=== PATIENT | female | born 1995 | race Caucasian/White ===

== ENCOUNTER → 2017-12-01 11:52 | Outpatient (CLI) | payer BC, MEDICAID, SELFPAY ==
[2017-12-01 12:26] LABS: Hematocrit 38.1 % (37-47); Hemoglobin 13.1 g/dl (12.0-15.0); Mean Corp Hgb Conc 34.4 g/gl (32-36); Mean Corpuscular Hgb 28.9 pg (27.0-32.0); Mean Corpuscular Volume 83.9 fL (81-99); Mean Platelet Vol. 9.1 fl (6.2-12.0); Platelet Count 295 K/mm3 (150-450); RBC Distribution Width SD 38.9 fl (35.1-43.9); Red Blood Count 4.54 M/mm3 (4.2-5.4); White Blood Count 5.6 K/mm3 (4.4-11.0)
[2017-12-01 12:33] LABS: Scan Indicated on CBC? Y/N NO
[2017-12-01 13:39] LABS: Thyroid Stim Hormone (TSH) 2.35 uIU/mL (0.358-3.74)
== END ==
PROVIDERS: Visit Provider Obstetrics & Gynecology
DX: N92.5 Other specified irregular menstruation (principal)
CPT/HCPCS: 36415; 84443; 85027

== ENCOUNTER 2018-05-30 05:13 | Emergency (ER) | payer BC, MEDICAID, SELFPAY ==
[2018-05-30 05:14] VITALS: BP 146/73; PULSE 105; RESP 18; TEMP 36.8; O2SAT 99; BMI 31.5
[2018-05-30] MEDS: DiphenhydrAMINE 50 MG/ML Syringe 25 MG IV (05:23)
[2018-05-30] MEDS: Metoclopramide 10 MG/2 ML Vial IV (05:23)
[2018-05-30] MEDS: Ketorolac 30 MG/ML Syringe IV (05:23)
--- NOTE | 2018-05-30 05:28 | ED.VISSUMM ---
- ER Visit Summary Date of Service: 05/30/18 Chief Complaint: Migraine headache History of Present Illness: The patient is a 22 F with history of migraine headaches presents with a unilateral headache that started on Tuesday. Pain initially was right periorbital area which is radiated to the occiput and now encompasses the entire right side described as a sharp unrelenting pain. This is associated with phonophobia, photophobia and nausea. She denies any neck pain or stiffness. She denies paresthesia, anesthesia motor weeks. She denies problems with balance, speech or swallowing. She has absolutely no other complaints. Physical Examination: Blood pressure is slightly elevated 146/73 and heart rate is 105. She is afebrile. Head is atraumatic normocephalic. Pupils are equal round reactive. Extraocular muscles are intact. TMs are pearly white with landmarks noted. Nares patent with no drainage. Posterior pharynx without erythema or exudate. Uvula is midline. There is no dysphonia or dysphasia. Trachea is midline. There is no stridor with auscultation of the neck. Neck is supple. Heart is regular without murmur, gallop or rub. S1 and S2 are normal. Lungs are clear to auscultation with good movement of air bilaterally. Abdomen is soft nontender with normal bowel sounds. Patient is alert and oriented ?3. Motor is 5 over 5. Sensory is intact. DTRs are symmetric with no clonus or Babinski sign. Cranial 2 through 12 are intact. Cerebellar testing is normal. Test Results: None Emergency Department Course and Treatment: IV was established and she was treated with 25 mg of Benadryl and 30 mg of Toradol IV push followed by 10 mg of Reglan IV push. Treatment Plan: I was informed at 0610 the patient would like to go home. She was reassessed her headache is resolved. Disposition: Discharged home in stable improved condition Impression: Acute migraine headache without aura This note was generated with [employer] / Hang[employer] dictation software. It may contain incorrect words, spelling, and punctuation that were not noted in review of the chart prior to signing ED Disposition - Plan for ED Patient: Disposition: Home or Assisted Living Chief Complaint: Headache Instructions: ED Headache Migraine Referrals: Elise Banerjee NP-C [Primary Care Provider] - 3-5 Days
[2018-05-30 06:27] VITALS: RESP 14
== END 2018-05-30 06:27 | disposition home or self-care (01) ==
PROVIDERS: Emergency Provider Emergency Medicine; Family Provider Nurse Practitioner Family; PCP Nurse Practitioner Family
DX: G43.909 Migraine, unspecified, not intractable, without status migrainosus (principal); Z72.0 Tobacco use
CPT/HCPCS: 99283; A4216

== ENCOUNTER 2018-07-08 20:48 | Emergency (ER) | payer BC, MEDICAID, SELFPAY ==
[2018-07-08 20:49] VITALS: BP 139/75; PULSE 70; RESP 15; TEMP 37; BMI 29.8
[2018-07-08] MEDS: Ketorolac 30 MG/ML Syringe IV (21:44)
--- NOTE | 2018-07-08 22:28 | ED.DEP ---
ED Disposition - Plan for ED Patient: Chief Complaint: Headache Instructions: ED Headache Migraine Referrals: Elise Banerjee NP-C [Primary Care Provider] -
[2018-07-08 22:39] VITALS: BP 154/101; PULSE 64; RESP 16; O2SAT 98
--- NOTE | 2018-07-08 23:44 | ED.VISSUMM ---
- ER Visit Summary Date of Service: 07/08/18 Chief Complaint: Headache History of Present Illness: The patient is a 22 F presenting with headache. She states this started today. Pain was gradual in onset. Similar to her previous migraines. She tried naproxen at home with no relief. Pain is in the frontal region. She has no vision changes. She has nausea with no vomiting. Denies fever. She had no trauma. No other complaints. Physical Examination: Vitals are stable. Patient is afebrile. Alert no acute distress. HEENT exam is unremarkable. Neck is supple. No meningismus Lungs are clear and equal bilaterally. Heart is regular rate and rhythm. Extremities are unremarkable. Skin is warm and dry. No rash No focal neurologic deficit. Remainder of exam is unremarkable. Emergency Department Course and Treatment: Patient drove herself to the emergency department. She was given Toradol IV with improvement of her headache. She is requesting to go home. She is advised to follow-up with her primary care physician. Advised return to ED for worsening complaints. Disposition: Discharge home Impression: Headache, resolved This note was generated with [employer] dictation software. It may contain incorrect words, spelling, and punctuation that were not noted in review of the chart prior to signing ED Disposition - Plan for ED Patient: Disposition: Home or Assisted Living Chief Complaint: Headache Instructions: ED Headache Migraine Referrals: Elise Banerjee NP-C [Primary Care Provider] -
== END 2018-07-08 22:40 | disposition home or self-care (01) ==
PROVIDERS: Emergency Provider Emergency Medicine; Family Provider Nurse Practitioner Family; PCP Nurse Practitioner Family
DX: R51 Headache (principal); R11.0 Nausea
CPT/HCPCS: 96374; 99283; A4216

== ENCOUNTER → 2018-07-31 17:58 | Outpatient (CLI) | payer BC, MEDICAID, SELFPAY | PROVIDERS: Referring Provider Obstetrics & Gynecology; Visit Provider Obstetrics & Gynecology | DX: N39.0 Urinary tract infection, site not specified (principal) | CPT/HCPCS: 87086; 87088 ==

== ENCOUNTER 2018-08-13 00:48 | Emergency (ER) | payer BC, MEDICAID, SELFPAY ==
[2018-08-13 00:49] VITALS: BP 132/88; PULSE 87; RESP 18; TEMP 36.4; O2SAT 100; BMI 29.1
--- NOTE | 2018-08-13 01:09 | ED.VIS.GEN ---
History of Present Illness Chief Complaint: Headache Informant: Patient Onset: Hours - 12 Context: Gradual Onset Timing: Continuous Quality: throbbing Location: right frontal and retroorbital Current Severity: Severe Maximum Severity: Severe Worsened by: light, vomiting Relieved by: nothing Associated Symptoms: n/v Narrative: Similar in quality to prior migraines. She sometimes gets migraines triggered by significant weather changes, a low pressure system came through this past 24 hours. She has multiple triggers and is unsure exactly of this one, but has had no other recent illness or head injury recently. - Past Medical History (1) Migraines Status: Chronic Past Medical History - Allergies and Home Meds Allergies/Adverse Reactions: Allergies amoxicillin [Amoxicillin] Allergy (Verified 07/08/18 20:52) Rash Penicillins Allergy (Verified 07/08/18 20:52) Rash Primary Care Physician: Elise Banerjee NP-C [Primary Care Provider] - Smoking Status: Never smoker Drugs: None Review of Systems General: Denies: Chills, Fever Eyes: Reports: Blurred Vision - bilaterally. Denies: Diplopia ENT: Denies: Bilateral ear pain, Rhinorrhea, Sore throat Cardiovascular: Denies: Chest pain, Palpitations Respiratory: Denies: Dyspnea, Cough Gastrointestinal: Reports: Nausea, Vomiting. Denies: Abdominal pain Musculoskeletal: Denies: Neck pain, Back pain, Extremity Pain Skin: Denies: Rash, Wounds Neurological: Reports: Headache. Denies: Weakness, Parasthesia, Numbness Allergy: Denies: Swelling of the mouth, Swelling of the tongue Physical Exam Vital Signs/Narrative: Vital Signs Temp Pulse Resp BP Pulse Ox 08/13/18 00:49 97.6 F L 87 18 132/88 H 100 Inital Vital Signs reviewed: Yes General: Well nourished, Well developed, - - in dark room, nad Head: Normocephalic, Atraumatic Eyes: Perrl, EOMI, - - +photophobia ENT: Moist mucous membranes, No rhinorrhea. Negative for: Sinus tenderness Neck: Supple, Nontender, No lymphadenopathy Respiratory: No distress Skin: Normal color, No rash Neurological: Alert, Oriented x3, Cranial nerves II-XII grossly intact, Normal Strength, Normal Sensation, Normal Gait Psychological: Normal affect Diagnostic/Tx/Re-eval - Medical Decision Making Patient presenting with a fairly typical migraine for her, she was treated with migraine medications including Toradol and Reglan along with IV fluids, she feels much better on reevaluation and wants to go home. Advised to follow-up. ED Disposition - Plan for ED Patient: Disposition: Home or Assisted Living Chief Complaint: Headache Diagnosis: Migraine headache Instructions: ED Headache Migraine Referrals: Elise Banerjee, [employer] TECHNICIAN-C [Primary Care Provider] - 3-5 Days if not improving
[2018-08-13] MEDS: 0.9% Normal Saline 1,000 ML 999 ML IV (01:25)
[2018-08-13] MEDS: Ketorolac 30 MG/ML Syringe IV (01:25)
[2018-08-13] MEDS: Metoclopramide 10 MG/2 ML Vial IV (01:26)
[2018-08-13 02:03] VITALS: BP 112/74; PULSE 81; RESP 16; O2SAT 100
--- NOTE | 2018-08-13 02:04 | ED.RN ---
THIS NURSE REVIEWED D/C INSTRUCTIONS WITH PT. PT VERBALIZED UNDERSTANDING OF INSTRUCTIONS. IV D/C. IV CATHETER INTACT. PT TOLERATED WELL. PT AMBULATES FROM ROOM ON OWN WITHOUT ASSISTANCE FROM STAFF
== END 2018-08-13 02:04 | disposition home or self-care (01) ==
PROVIDERS: Emergency Provider Emergency Medicine; Family Provider Nurse Practitioner Family; PCP Nurse Practitioner Family
DX: G43.909 Migraine, unspecified, not intractable, without status migrainosus (principal)
CPT/HCPCS: 96361; 96374; 96375; 99284; J7030; A4216

== ENCOUNTER → 2018-09-07 07:39 | Outpatient (CLI) | payer BC, MEDICAID, SELFPAY ==
--- NOTE | 2018-09-07 07:42 | CT_ITS ---
STUDY: CT MAXILLOFACIAL SINUSES REASON FOR EXAM: Female, 23 years old. Chronic sinusitis. RADIATION DOSAGE (If Supplied By Facility): CTDIvol = ( 33.06 ) mGy, DLP = ( 751.21 ) mGycm TECHNIQUE: The patient was scanned in a multi detector CT scanner. High resolution axial imaging was performed without the administration of intravenous contrast material. Sagittal and coronal images were reconstructed. Individualized dose optimization techniques were used for this CT. COMPARISON: None. FINDINGS: FRONTAL SINUSES: Normal aeration, without mucosal inflammatory disease. ETHMOIDAL SINUSES: Normal aeration, without mucosal inflammatory disease. MAXILLARY SINUSES: Normal aeration, without mucosal inflammatory disease. SPHENOIDAL SINUSES: Normal aeration, without mucosal inflammatory disease. There is patency of the bilateral maxillary infundibuli with normal uncinate processes, ethmoid bullae, and hiatus semilunaris. Normal bilateral middle turbinates. There is hypertrophy of the left inferior nasal turbinate. Normal midline nasal septum. There is patency of the bilateral nasal airways. The visualized osseous structures are normal. The visualized bilateral orbital contents are normal. CT/Sinus/Facial Bone IMPRESSION: Hypertrophy of the inferior turbinate in the left nasal fossa. Electronically Signed: Melchor Cazares MD at 14:13 EST Tel [phone], Service support ,
== END ==
PROVIDERS: Referring Provider Otolaryngology; Visit Provider Otolaryngology
DX: J32.9 Chronic sinusitis, unspecified (principal)
CPT/HCPCS: 70486

== ENCOUNTER → 2018-10-06 11:52 | Outpatient (CLI) | payer BC, MEDICAID, SELFPAY ==
--- OUTSIDE RECORDS SUMMARY | 2018-11-22 05:46 | XMS RPT_ITS ---
:1995 Author Organization OHIP Support Name Relationship Address Phone TRISTON JAQUEZ Unavailable [address] + [place] [address] REJI, CLIFF Unavailable [address] + [place] [address] UE Unavailable Unavailable Unavailable BENDFELDT, TRISTON Unavailable [address] + [place] [address] REJI, CLIFF Unavailable [address] + [place] [address] UE Unavailable Unavailable Unavailable BENDFELDT, TRISTON Unavailable [address] + [place] [address] REJI, CLIFF Unavailable [address] + [place] [address] UE Unavailable Unavailable Unavailable BENDFELDT, TRISTON Unavailable [address] + [place] [address] REJI, CLIFF Unavailable [address] + [place] [address] UE Unavailable Unavailable Unavailable BENDFELDT, TRISTON Unavailable [address] + [place] [address] REJI, CLIFF Unavailable [address] + [place] [address] TACOBELL Unavailable [address] + [place] [address] BENDFELDT, TRISTON Unavailable [address] + [place] [address] REJI, CLIFF Unavailable [address] + [place] [address] TACOBELL Unavailable [address] + [place] [address] BENDFELDT, TRISTON Unavailable [address] + [place] [address] REJI, CLIFF Unavailable [address] + [place] [address] TACOBELL Unavailable [address] + [place] [address] BENDFELDT, TRISTON Unavailable [address] + [place] [address] REJI, CLIFF Unavailable [address] + [place] [address] UE Unavailable Unavailable Unavailable BENDFELDT, TRISTON Unavailable [address] + [place] [address] REJI, CLIFF Unavailable [address] + [place] [address] UE Unavailable Unavailable Unavailable Care Team Providers Name Role Phone Giselle Grewal Attending Unavailable Jose Franks Attending Unavailable Swihart INTERNATIONAL FLIGHT ATTENDANT, Elise Primary Care Unavailable Giselle Grewal Attending Unavailable Primay Care Physicia, No Primary Care Unavailable Vargas, Clarence Attending Unavailable Swihart INTERNATIONAL FLIGHT ATTENDANT, Elise Primary Care Unavailable Swihart RASHEEDA, Elise Primary Care Unavailable Emiliana Fletcher Attending Unavailable Swihart INTERNATIONAL FLIGHT ATTENDANT, Elise Primary Care Unavailable Howard Benitez Attending Unavailable Giselle Grewal Attending Unavailable Giselle Grewal Referring Unavailable [facility] Primary Care Unavailable Zachariaht RASHEEDA, Elise Primary Care Unavailable YANDY TATE Attending Unavailable Nazario Pritchard Attending Unavailable Nazario Pritchard Referring Unavailable [facility] Primary Care Unavailable Swihart RASHEEDA, Elise Consulting Unavailable PROBLEMS PROBLEMS DATE TYPE CONDITION / CODE ATTENDING STATUS SOURCE 10/06/2018 Unknown N39.0 - Urinary Jen Grewalily Active [facility] infection, Community site not specified Hospital / N39.0(ICD-10) Repository 03/16/2018 Unknown N92.5 - Other Godwinkos, Giselle Active [facility] specified [facility] irregular Hospital menstruation / Repository N92.5(ICD-10) PROCEDURES PROCEDURES No Procedure Records FoundRESULTS RESULTS DISCHARGE INSTRUCTION Observed: 10/24/2018 Status: F Source: [place] 1:35 PM [facility] REPOSITORY [facility] Medical Records Department [address] [place] [address] Discharge Instruction 10/24/18 1045 MR#: [id number] Acct: [id number] Name: SONIA JAQUEZ Rep #: [id number] : 1995 23 From: Howard Benitez MD PCP: Elise Goldberg Status: DEP ER ED Disposition - Plan for ED Patient: Chief Complaint: Headache Instructions: ED Headache Migraine Referrals: Elise Banerjee, SHOT BLASTER-C [Primary Care Provider] - What to do if you have Problems For any increased pain, shortness of breath, bleeding, nausea or vomiting, chest pain, or any unexpected problems, contact your Primary Care Provider. Call [facility] ([phone]) or report to the closest Emergency Room. Call 911 if necessary. 10/24/18 1335 <Electronically signed by Howard Benitez MD> Date Howard Benitez MD Cosigner Signature (If Indicated): Date CC: Elise VANESSA EMERGENCY DEPARTMENT Observed: 10/24/2018 Status: F Source: [place] SUMMARY 1:35 PM [facility] REPOSITORY [facility] Medical Records Department [address] [place] [address] Emergency Department Summary 10/24/18 1044 MR#: [id number] Acct: [id number] Name: SONIA JAQUEZ Rep #: [id number] : 1995 23 From: Howard Benitez MD PCP: Elise Goldberg Status: DEP ER - ER Visit Summary Date of Service: 10/24/18 Chief Complaint: Headache History of Present Illness: The patient is a 23 F with a history of migraines. She presents with a headache that started overnight last night. It woke her up. It has been persistent since last night. Pain feels like her typical migraines, but is more severe. Denies trauma. Denies fever. Denies blood thinner use. Denies weakness or numbness. She does have photophobia and phonophobia. Tried Maxalt, but had no improvement. Physical Examination: Afebrile and vital signs unremarkable. Head and neck are atraumatic. Heart regular. Lungs clear. Cranial nerve testing grossly intact. Normal strength and sensation. Normal cerebellar testing. Skin appears normal. Neck nontender with good range of motion. Test Results: None performed Emergency Department Course and Treatment: Patient has a known diagnosis of migraine. No new or red flag symptoms. She was treated with fluids, Compazine, Benadryl, and Toradol. At 12:30 PM, the patient is feeling better and requesting discharge. She will follow-up with her doctor. Treatment Plan: As above Disposition: Discharge Impression:. Acute cephalgia This note was generated with oNoise dictation software. It may contain incorrect words, spelling, and punctuation that were not noted in review of the chart prior to signing ED Disposition - Plan for ED Patient: Chief Complaint: Headache Instructions: ED Headache Migraine Referrals: Elise Banerjee, SHOT BLASTER-C [Primary Care Provider] - What to do if you have Problems For any increased pain, shortness of breath, bleeding, nausea or vomiting, chest pain, or any unexpected problems, contact your Primary Care Provider. Call [facility] ([phone]) or report to the closest Emergency Room. Call 911 if necessary. 10/24/18 1335 <Electronically signed by Howard Benitez MD> Date Howard Benitez MD Cosigner Signature (If Indicated): Date CC: Elise VANESSA EMERGENCY DEPARTMENT Observed: 10/16/2018 Status: F Source: [place] SUMMARY 5:32 AM [facility] REPOSITORY [facility] Medical Records Department [address] [place] [address] Emergency Department Summary 10/15/18 0155 MR#: [id number] Acct: [id number] Name: SONIA JAQUEZ Rep #: [id number] : 1995 23 From: Jose Franks MD PCP: Elise Goldberg Status: DEP ER - ER Visit Summary Date of Service: 10/15/18 Chief Complaint: Headache History of Present Illness: The patient is a 23 F who goes to the [facility]. She reports that she has a headache that began yesterday at 9 AM. Is gradually gotten worse. She reports she gets similar headaches all the time. She describes as a sharp, throbbing pain posterior to her left eye. Is 10 at 10 worsening a 10 currently. Is worsened by light and sound. Is relieved by Maxalt and sleep. She has had nausea without vomiting. No change in her vision. No recent trauma to her head. No fever or chills. No numbness or weakness. Physical Examination: Vitals: Stable. Afebrile. General: Well-nourished and well-developed. Head: Normocephalic atraumatic. Neck: Supple, no lymphadenopathy. No JVD. Nontender. Cardiovascular: Regular rate and rhythm. No murmurs. Respiratory: No respiratory distress. Clear to auscultation bilaterally. Abdominal: Soft, nontender, nondistended, normal bowel sounds. No guarding, rebound, or peritoneal signs. Back: Nontender. Extremities: Nontender, no edema. Skin: Normal color, no rash. Neurologic: Alert and oriented 3. Cranial nerves II through XII are intact. Normal strength and sensation. Psych: Normal affect. Emergency Department Course and Treatment: Patient had an IV placed. She was treated with Benadryl, Compazine, Toradol, and dexamethasone IV. She reports that her headache is completely resolved. Treatment Plan: Patient be discharged instructions to follow- up with her primary care physician in 1-2 days if not improving. Return to the emergency department for any worsening symptoms. Disposition: To home in improved and stable condition. Impression: 1. Migraine headache. This note was generated with ViajaNetation software. It may contain incorrect words, spelling, and punctuation that were not noted in review of the chart prior to signing ED Disposition - Plan for ED Patient: Disposition: Home or Assisted Living Chief Complaint: Headache Instructions: ED Headache Migraine Referrals: Elise Banerjee, SHOT BLASTER-C [Primary Care Provider] - 1-2 Days if not improving What to do if you have Problems For any increased pain, shortness of breath, bleeding, nausea or vomiting, chest pain, or any unexpected problems, contact your Primary Care Provider. Call [facility] ([phone]) or report to the closest Emergency Room. Call 911 if necessary. 10/16/18 0532 <Electronically signed by Jose Franks MD> Date Jose Franks MD Cosigner Signature (If Indicated): Date CC: Elise VANESSA Observed: 10/06/2018 Status: F Source: [place] CULTURE, URINE 9:45 AM [facility] REPOSITORY Urine Culture ORGANISM 1: Presumptive E. coli [place] Count 50,000-80,000 Presumptive E. coli: REACTION Amoxacillin/Clavulanic Acid $ <=2 S Ampicillin $ 4 S Ampicillin/Sulbactam $ <=2 S Cefazolin $ <=4 S Cefepime $ <=1 S Ceftriaxone $ <=1 S Ciprofloxacin $ <=0.25 S ESBL - Ertapenim $$$ <=0.5 S Gentamicin $ <=1 S Imipenem *NF <=0.25 S Levofloxacin $ <=0.12 S Nitrofurantoin $ <=16 S Piperacillin/Tazobactam $$ <=4 S Tobramycin $ <=1 S Trimethoprim/Sulfametho $ <=20 S (NF) indicates non-formulary drug at [facility]. Approval by Infectious Disease Specialist required before non-formulary drugs may be ordered and/or dispensed. Performed By: #### M100.0650 #### [facility] [address] [place], [address] SINUS/FACIAL BONE Observed: 09/07/2018 Status: F Source: [place] 7:42 AM [facility] REPOSITORY [facility] Imaging Services [address] [place] [address] Sinus/Facial Bone MR#: [id number] Acct: [id number] Name: SONIA JAQUEZ Rep #: [id number] : 1995 F 23 From: Melchor Cazares MD PCP: WILL KNOX [facility] Status: REG CLI Study: Sinus/Facial Bone Date of Exam: 09/07/18 Exam# [id number] Ordering Dr: Nazario Pritchard MD STUDY: CT MAXILLOFACIAL SINUSES REASON FOR EXAM: Female, 23 years old. Chronic sinusitis. RADIATION DOSAGE (If Supplied By Facility): CTDIvol = ( 33.06 ) mGy, DLP = ( 751.21 ) mGycm TECHNIQUE: The patient was scanned in a multi detector CT scanner. High resolution axial imaging was performed without the administration of intravenous contrast material. Sagittal and coronal images were reconstructed. Individualized dose optimization techniques were used for this CT. COMPARISON: None. FINDINGS: FRONTAL SINUSES: Normal aeration, without mucosal inflammatory disease. ETHMOIDAL SINUSES: Normal aeration, without mucosal inflammatory disease. MAXILLARY SINUSES: Normal aeration, without mucosal inflammatory disease. SPHENOIDAL SINUSES: Normal aeration, without mucosal inflammatory disease. There is patency of the bilateral maxillary infundibuli with normal uncinate processes, ethmoid bullae, and hiatus semilunaris. Normal bilateral middle turbinates. There is hypertrophy of the left inferior nasal turbinate. Normal midline nasal septum. There is patency of the bilateral nasal airways. The visualized osseous structures are normal. The visualized bilateral orbital contents are normal. CT/Sinus/Facial Bone IMPRESSION: Hypertrophy of the inferior turbinate in the left nasal fossa. Electronically Signed: Melchor Cazares MD at 14:13 EST Tel [phone], Service support , CC: Tima Pritchard MD; WILL KNOX [facility] Field Collector: Signed EMERGENCY DEPARTMENT Observed: 08/13/2018 Status: F Source: [place] SUMMARY 1:58 AM [facility] REPOSITORY [facility] Medical Records Department [address] [place] [address] Emergency Department Summary 08/13/18 0109 MR#: [id number] Acct: [id number] Name: SONIA JAQUEZ Rep #: [id number] : 1995 22 From: Yandy Tate MD PCP: Elise Goldberg Status: REG ER History of Present Illness Chief Complaint: Headache Informant: Patient Onset: Hours - 12 Context: Gradual Onset Timing: Continuous Quality: throbbing Location: right frontal and retroorbital Current Severity: Severe Maximum Severity: Severe Worsened by: light, vomiting Relieved by: nothing Associated Symptoms: n/v Narrative: Similar in quality to prior migraines. She sometimes gets migraines triggered by significant weather changes, a low pressure system came through this past 24 hours. She has multiple triggers and is unsure exactly of this one, but has had no other recent illness or head injury recently. - Past Medical History (1) Migraines Status: Chronic Past Medical History - Allergies and Home Meds Allergies/Adverse Reactions: Allergies amoxicillin [Amoxicillin] Allergy (Verified 07/08/18 20:52) Rash Penicillins Allergy (Verified 07/08/18 20:52) Rash Primary Care Physician: Elise Banerjee, MARIO-C [Primary Care Provider] - Smoking Status: Never smoker Drugs: None Review of Systems General: Denies: Chills, Fever Eyes: Reports: Blurred Vision - bilaterally. Denies: Diplopia ENT: Denies: Bilateral ear pain, Rhinorrhea, Sore throat Cardiovascular: Denies: Chest pain, Palpitations Respiratory: Denies: Dyspnea, Cough Gastrointestinal: Reports: Nausea, Vomiting. Denies: Abdominal pain Musculoskeletal: Denies: Neck pain, Back pain, Extremity Pain Skin: Denies: Rash, Wounds Neurological: Reports: Headache. Denies: Weakness, Parasthesia, Numbness Allergy: Denies: Swelling of the mouth, Swelling of the tongue Physical Exam Vital Signs/Narrative: Vital Signs 08/13/18 00:49 97.6 F L 87 18 132/88 H 100 Inital Vital Signs reviewed: Yes General: Well nourished, Well developed, - - in dark room, nad Head: Normocephalic, Atraumatic Eyes: Perrl, EOMI, - - +photophobia ENT: Moist mucous membranes, No rhinorrhea. Negative for: Sinus tenderness Neck: Supple, Nontender, No lymphadenopathy Respiratory: No distress Skin: Normal color, No rash Neurological: Alert, Oriented x3, Cranial nerves II-XII grossly intact, Normal Strength, Normal Sensation, Normal Gait Psychological: Normal affect Diagnostic/Tx/Re-eval - Medical Decision Making Patient presenting with a fairly typical migraine for her, she was treated with migraine medications including Toradol and Reglan along with IV fluids, she feels much better on reevaluation and wants to go home. Advised to follow-up. ED Disposition - Plan for ED Patient: Disposition: Home or Assisted Living Chief Complaint: Headache Diagnosis: Migraine headache Instructions: ED Headache Migraine Referrals: Elise Banerjee, SHOT BLASTER-C [Primary Care Provider] - 3-5 Days if not improving What to do if you have Problems For any increased pain, shortness of breath, bleeding, nausea or vomiting, chest pain, or any unexpected problems, contact your Primary Care Provider. Call [facility] ([phone]) or report to the closest Emergency Room. Call 911 if necessary. 08/13/18 0158 <Electronically signed by Yandy Tate MD> Date Yandy Tate MD Cosigner Signature (If Indicated): Date CC: Elise VANESSA Observed: 07/31/2018 Status: F Source: [place] CULTURE, URINE 5:00 PM [facility] REPOSITORY Urine Culture ORGANISM 1: Mixed Gram Positive Organisms [place] Count 11,000-25,000 MIX CULTURE Mixed contaminants. Submit a new specimen if indicated. Performed By: #### M100.0650 #### [facility] [address] [place], [address] EMERGENCY DEPARTMENT Observed: 07/08/2018 Status: F Source: [place] SUMMARY 11:47 PM [facility] REPOSITORY [facility] Medical Records Department [address] [place] [address] Emergency Department Summary 07/08/18 2344 MR#: [id number] Acct: [id number] Name: SONIA JAQUEZ Rep #: [id number] : 1995 22 From: Emiliana Fletcher MD PCP: Elise Goldberg Status: DEP ER - ER Visit Summary Date of Service: 07/08/18 Chief Complaint: Headache History of Present Illness: The patient is a 22 F presenting with headache. She states this started today. Pain was gradual in onset. Similar to her previous migraines. She tried naproxen at home with no relief. Pain is in the frontal region. She has no vision changes. She has nausea with no vomiting. Denies fever. She had no trauma. No other complaints. Physical Examination: Vitals are stable. Patient is afebrile. Alert no acute distress. HEENT exam is unremarkable. Neck is supple. No meningismus Lungs are clear and equal bilaterally. Heart is regular rate and rhythm. Extremities are unremarkable. Skin is warm and dry. No rash No focal neurologic deficit. Remainder of exam is unremarkable. Emergency Department Course and Treatment: Patient drove herself to the emergency department. She was given Toradol IV with improvement of her headache. She is requesting to go home. She is advised to follow-up with her primary care physician. Advised return to ED for worsening complaints. Disposition: Discharge home Impression: Headache, resolved This note was generated with oNoise dictation software. It may contain incorrect words, spelling, and punctuation that were not noted in review of the chart prior to signing ED Disposition - Plan for ED Patient: Disposition: Home or Assisted Living Chief Complaint: Headache Instructions: ED Headache Migraine Referrals: Elise Banerjee, MARIO-C [Primary Care Provider] - What to do if you have Problems For any increased pain, shortness of breath, bleeding, nausea or vomiting, chest pain, or any unexpected problems, contact your Primary Care Provider. Call [facility] ([phone]) or report to the closest Emergency Room. Call 911 if necessary. 07/08/182346 <Electronically signed by Emiliana Fletcher MD> Date Emiliana Fletcher MD Cosigner Signature (If Indicated): Date CC: Elise VANESSA DISCHARGE INSTRUCTION Observed: 07/08/2018 Status: F Source: [place] 10:28 PM [facility] REPOSITORY [facility] Medical Records Department [address] [place] [address] Discharge Instruction 07/08/182227 MR#: [id number] Acct: [id number] Name: SONIA JAQUEZ Rep #: [id number] : 1995 22 From: Emiliana Fletcher MD PCP: Elise Goldberg Status: REG ER ED Disposition - Plan for ED Patient: Chief Complaint: Headache Instructions: ED Headache Migraine Referrals: Elise Banerjee NP-C [Primary Care Provider] - What to do if you have Problems For any increased pain, shortness of breath, bleeding, nausea or vomiting, chest pain, or any unexpected problems, contact your Primary Care Provider. Call [facility] ([phone]) or report to the closest Emergency Room. Call 911 if necessary. 07/08/182227 <Electronically signed by Emiliana Fletcher MD> Date Emiliana Fletcher MD Cosigner Signature (If Indicated): Date CC: Elise VANESSA EMERGENCY DEPARTMENT Observed: 05/30/2018 Status: F Source: [place] SUMMARY 6:16 AM [facility] REPOSITORY [facility] Medical Records Department [address] [place] [address] Emergency Department Summary 05/30/18 0528 MR#: [id number] Acct: [id number] Name: SONIA JAQUEZ Rep #: [id number] : 1995 22 From: Clarence Vargas MD PCP: Elise Goldberg Status: REG ER - ER Visit Summary Date of Service: 05/30/18 Chief Complaint: Migraine headache History of Present Illness: The patient is a 22 F with history of migraine headaches presents with a unilateral headache that started on Tuesday. Pain initially was right periorbital area which is radiated to the occiput and now encompasses the entire right side described as a sharp unrelenting pain. This is associated with phonophobia, photophobia and nausea. She denies any neck pain or stiffness. She denies paresthesia, anesthesia motor weeks. She denies problems with balance, speech or swallowing. She has absolutely no other complaints. Physical Examination: Blood pressure is slightly elevated 146/73 and heart rate is 105. She is afebrile. Head is atraumatic normocephalic. Pupils are equal round reactive. Extraocular muscles are intact. TMs are pearly white with landmarks noted. Nares patent with no drainage. Posterior pharynx without erythema or exudate. Uvula is midline. There is no dysphonia or dysphasia. Trachea is midline. There is no stridor with auscultation of the neck. Neck is supple. Heart is regular without murmur, gallop or rub. S1 and S2 are normal. Lungs are clear to auscultation with good movement of air bilaterally. Abdomen is soft nontender with normal bowel sounds. Patient is alert and oriented 3. Motor is 5 over 5. Sensory is intact. DTRs are symmetric with no clonus or Babinski sign. Cranial 2 through 12 are intact. Cerebellar testing is normal. Test Results: None Emergency Department Course and Treatment: IV was established and she was treated with 25 mg of Benadryl and 30 mg of Toradol IV push followed by 10 mg of Reglan IV push. Treatment Plan: I was informed at 0610 the patient would like to go home. She was reassessed her headache is resolved. Disposition: Discharged home in stable improved condition Impression: Acute migraine headache without aura This note was generated with oNoise dictation software. It may contain incorrect words, spelling, and punctuation that were not noted in review of the chart prior to signing ED Disposition - Plan for ED Patient: Disposition: Home or Assisted Living Chief Complaint: Headache Instructions: ED Headache Migraine Referrals: Elise Banerjee, SHOT BLASTER-C [Primary Care Provider] - 3-5 Days What to do if you have Problems For any increased pain, shortness of breath, bleeding, nausea or vomiting, chest pain, or any unexpected problems, contact your Primary Care Provider. Call [facility] ([phone]) or report to the closest Emergency Room. Call 911 if necessary. 05/30/18 0616 <Electronically signed by Clarence Vargas MD> Date Clarence Vargas MD Cosigner Signature (If Indicated): Date CC: Elise VANESSA PROGRESS Observed: 02/12/2018 Status: COMPLETED Source: [place] 9:20 AM [facility] REPOSITORY [facility] ID: [id number] Author: Claudia (Billboard Erector Helper) Older Service: (none) Author Type: Nurse Practitioner Type: Progress Notes Filed: 02/12/2018 9:39 AM Note Text: CC: Patient presents with: Musculoskeletal Problem: Left foot pain since yesterday HPI Sonia Jaquez is a 22 year old female who presents today for left foot pain since last night. [place] the mall with flip flops on for a few hours yesterday, pain started later that evening. Located between 3rd and 4th toe and radiates up side of foot and outer ankle. Described as sharp pain. Aggravated by weight bearing, walking and pointing toes. Otherwise feels sore at rest. No injury. No strenuous activities or exercise. No swelling, numbness or tingling. Treated with Tylenol at 12 am with no relief. Has not taken anything else since then. Patient states last summer had similar issue with pain in the right foot in the exact same spot. Lasted for about one week, then resolved on its own. REVIEW OF SYSTEMS See HPI No past medical history on file. No past surgical history on file. ALLERGIES Penicillin MEDICATIONS oxyCODONE-acetaminophen (PERCOCET) 5-325 mg tablet Take 1 tablet by mouth every 8 hours as needed for Pain. ibuprofen (MOTRIN) 800 mg tablet Take 1 tablet by mouth every 8 hours as needed for Pain. Take with food. No family history on file. Social History Substance Use Topics - Smoking status: Former Smoker Types: Cigarettes Quit date: 04/23/2015 - Smokeless tobacco: Never Used - Alcohol use Not on file PHYSICAL EXAM BP 110/72 Pulse 78 Temp 36.7 ?C (98.1 ?F) (Right Tympanic) Resp 16 Wt 84.4 kg (186 lb) General Appearance: well appearing, in no acute distress, alert Left foot/ankle: Top foot, between 3rd/4th toes at the base: Very tender with palpation. Slight tenderness over entire foot and lateral malleolus excluding toes. Pain with ROM of foot and ankle. No deformities, edema, skin discoloration. Good capillary refill. Pulses: 2+ TETANUS due on 2004 HPV VACCINE(1 of 3 - Female 3 Dose Series) due on 2004 PAP EVERY 3 YEARS (21-30 YEAR OLDS) due on 2014 INFLUENZA(Season Ended) due on 06/24/2018 ASSESSMENT/PLAN: 1. Foot pain, left - ICD9: 729.5, ICD10: M79.672 Likely overuse, wearing flip flops No concern for fracture, imaging not indicated Advised to start Aleve for the next 3-4 days, see patient instructions Follow-up in 1-2 weeks if no improvement or sooner if worsening Prescription instructions reviewed with patient as applicable. Potential red flag symptoms discussed with the patient. Reviewed appropriate action plan to take if red flag symptoms occur. Patient agreeable to treatment plan. Claudia Mccarty APRN.MS ACCESS DATABASE DEVELOPER CNOV Observed: 02/12/2018 Status: COMPLETED Source: [place] 9:00 AM [facility] REPOSITORY Office Visit (WSTR) SONIA JAQUEZ ([id number]) 1995 F Date Time Provider Department 02/12/18 9:00 AM CLAUDIA MCCARTY ([place]) [facility] During your visit today, we recorded the following information about you: Temperature Pulse Respiration Blood pressure 98.1 degrees 78/minute 16/minute 110/72 Weight 84.4 kg Claudia ASHLEY MccartyCARLOS ALBERTO 02/12/2018 9:39 AM Signed CC: Patient presents with: Musculoskeletal Problem: Left foot pain since yesterday HPI Sonialarissa Jaquez is a 22 year old female who presents today for left foot pain since last night. [place] around at the mall with flip flops on for a few hours yesterday, pain started later that evening. Located between 3rd and 4th toe and radiates up side of foot and outer ankle. Described as sharp pain. Aggravated by weight bearing, walking and pointing toes. Otherwise feels ANDquot;soreANDquot; at rest. No injury. No strenuous activities or exercise. No swelling, numbness or tingling. Treated with Tylenol at 12 am with no relief. Has not taken anything else since then. Patient states last summer had similar issue with pain in the right foot in the exact same spot. Lasted for about one week, then resolved on its own. REVIEW OF SYSTEMS See [facility] No past medical history on file. No past surgical history on file. ALLERGIES Penicillin MEDICATIONS oxyCODONE-acetaminophen (PERCOCET) 5-325 mg tablet Take 1 tablet by mouth every 8 hours as needed for Pain. ibuprofen (MOTRIN) 800 mg tablet Take 1 tablet by mouth every 8 hours as needed for Pain. Take with food. No family history on file. Social History Substance Use Topics - Smoking status: Former Smoker Types: Cigarettes Quit date: 04/23/2015 - Smokeless tobacco: Never Used - Alcohol use Not on file PHYSICAL EXAM BP 110/72 Pulse 78 Temp 36.7 ?C (98.1 ?F) (Right Tympanic) Resp 16 Wt 84.4 kg (186 lb) General Appearance: well appearing, in no acute distress, alert Left foot/ankle: Top foot, between 3rd/4th toes at the base: Very tender with palpation. Slight tenderness over entire foot and lateral malleolus excluding toes. Pain with ROM of foot and ankle. No deformities, edema, skin discoloration. Good capillary refill. Pulses: 2+ TETANUS due on 2004 HPV VACCINE(1 of 3 - Female 3 Dose Series) due on 2004 PAP EVERY 3 YEARS (21-30 YEAR OLDS) due on 2014 INFLUENZA(Season Ended) due on 06/24/2018 ASSESSMENT/PLAN: 1. Foot pain, left - ICD9: 729.5, ICD10: M79.672 Likely overuse, wearing flip flops No concern for fracture, imaging not indicated Advised to start Aleve for the next 3-4 days, see patient instructions Follow-up in 1-2 weeks if no improvement or sooner if worsening Prescription instructions reviewed with patient as applicable. Potential red flag symptoms discussed with the patient. Reviewed appropriate action plan to take if red flag symptoms occur. Patient agreeable to treatment plan. JOSEPH Holly APRN.CNP 02/12/2018 9:27 AM Signed Take 2 Aleve twice a day with meals for the next 3-4 days. Can also try heat. Follow-up with your doctor in 1-2 weeks if no improvement or sooner if worsening Referring Provider: SELF [200] Allergies As of Date: 02/12/2018 Noted Allergy Reaction PENICILLIN 02/17/2016 4 - Hives Date Reviewed: 02/12/2018 Reviewed by: Danya Tinajero LPN - Fully Assessed Reason for Visit: Musculoskeletal Problem [69] Cmt: Left foot pain since yesterday Primary Visit Diagnosis:Foot pain, left [M79.672] Prescriptions as of 02/12/2018 Sig: OXYCODONE-ACETAMINOPHEN 5 MG-* Take 1 tablet by mouth every * IBUPROFEN 800 MG TABLET Take 1 tablet by mouth every * Medication notes this encounter OXYCODONE-ACETAMINOPHEN 5 MG-325 MG TABLET >> Danya Tinajero DIRECTOR OF AUDIOLOGY 02/12/2018 9:10 AM >> BERENICE, DANYA E DIRECTOR OF AUDIOLOGY Sun Feb 12, 2018 9:10 AM [place] done IBUPROFEN 800 MG TABLET >> Danya E Berenice DIRECTOR OF AUDIOLOGY 02/12/2018 9:10 AM >> BERENICE, DANYA E DIRECTOR OF AUDIOLOGY Sun Feb 12, 2018 9:10 AM [place] done Problem List As Of Date: 02/12/2018 (None) Other instructions from your clinician: Take 2 Aleve twice a day with meals for the next 3-4 days. Can also try heat. Follow-up with your doctor in 1-2 weeks if no improvement or sooner if worsening Encounter Status:Closed by CLAUDIA MCCARTY CNP on 02/12/18 CBC-COMPLETE BLOOD CNT Collected: 12/01/2017 Status: F Source: [place] NO DIFF 11:56 AM [facility] REPOSITORY TYPE CODE TESTS RESULT OUT OF RANGE REFERENCE UNITS LAB L100.1000 4.4-11.0 K/mm3 Normal WBC 5.6 LAB L100.1200 4.2-5.4 M/mm3 Normal RBC 4.54 LAB L100.1300 12.0-15.0 g/dl Normal HGB 13.1 LAB L100.1400 37-47 % Normal HCT 38.1 LAB L100.1500 81-99 fL Normal MCV 83.9 LAB L100.1600 27.0-32.0 pg Normal MCH 28.9 LAB L100.1700 32-36 g/gl Normal MCHC 34.4 LAB L100.1810 11.6-14.6 % Normal RDW CV 13.0 LAB L100.1820 35.1-43.9 fl Normal RDW SD 38.9 LAB L100.1900 150-450 K/mm3 Normal PLT 295 LAB L100.2000 6.2-12.0 fl Normal MPV 9.1 Performed By: #### L100.0500 #### [facility] [place], [address] THYROID STIM HORMONE Collected: 12/01/2017 Status: F Source: [place] (TSH) 11:56 AM [facility] REPOSITORY TYPE CODE TESTS RESULT OUT OF RANGE REFERENCE UNITS LAB L501.9520 0.358-3.74 uIU/mL Normal TSH 2.35 Performed By: #### L501.9520 #### [facility] [place], [address] ALLERGIES ALLERGIES DATE TYPE / CODE NAME / CODE REACTION SEVERITY SOURCE 10/15/2018 Drug Penicillins/J76005 Rash Unknown [place] Allergy/416 0476(RXNORM) Community 020220([facility] ED CT) Repository 10/15/2018 Drug amoxicillin/C00729 Rash Unknown [place] Allergy/416 3675(RXNORM) Community 294320([facility] ED CT) Repository 02/17/2016 DRUG PENICILLIN HIVES [facility] INGREDI/[address] [place] 800298(SNOM Repository ED CT) 10/10/2015 DRUG AMOXICILLIN RASH [facility] INGREDI/[address] [place] 685925(SNOM Repository ED CT) 10/10/2015 Drug PENICILLINS RASH [facility] Class/01054 [address] [place] 1003(SNOMED Repository CT) ENCOUNTERS ENCOUNTERS ADMIT/DISCHARGE ACCOUNT ADMITTING ENCOUNTER LOCATION SOURCE NUMBER CLASS 10/24/2018/10/24/19 [id number] Emergency [address] ing:ED Repository 10/15/2018/10/15/20 [id number] Emergency [address] ing:ED Repository 10/06/2018 [id number] [facility] ing:LABSPEC Repository 09/07/2018 [id number] Ambulatory [facility] ing:CT Repository 08/13/2018/08/13/20 [id number] Emergency [address] ing:ED Repository 07/31/2018 [id number] Ambulatory [facility] ing:LABSPEC Repository 07/08/2018/07/08/20 [id number] Emergency [address] ing:ED Repository 05/30/2018/05/30/20 [id number] Emergency [address] ing:ED Repository 02/12/2018/02/14/20 [id number] Ambulatory [address] [place] Repository 12/01/2017 [id number] Ambulatory [place] [facility] ing:WOBLAB Repository PAYERS PAYERS ENCOUNTER GUARANTOR PAYER SUBSCRIBER SOURCE 10/24/2018 SONIA B Primary SILVIO Wang [id number] Insurance:ANTHEMPolic LEHMANDOB: [facility] LUC[facility]A [facility], y Number: [id number] [address]Egy: [id number] Repository Date:3678-96-23LJ [address] () [address], [place] [address]QS: 10/24/2018 Secondary SONIA B [place] Insurance:[facility]LY [facility]: [facility] [id number] General HospitalPolicy Number: Repository [id number] Date:8223-67-19LB [address] [place] [address] [place] [address]QO: 10/24/2018 Tertiary NOT GIVENUNK [place] Insurance:SELF PAY [facility] Number: Effective Repository Date:2018-10-24 10/15/2018 SONIA B Primary SILVIO Wang [id number] Insurance:ANTHEMPolic LEHMANDOB: [facility] LUCÍA [facility], y Number: [id number] Santa Fe Medical Center [address]Taf: [id number] Repository Date:8196-13-17ZE [address] () [address]ZI, [place] [address]JG: 10/15/2018 Secondary SONIA B [place] Insurance:ROEL OLIVIERB: [facility] [id number] General HospitalPolicy Number: Repository [id number] Date:9337-27-63NS [address] [place] [address] [place] [address]IZ: 10/15/2018 Tertiary NOT GIVENUNK [place] Insurance:SELF PAY [facility] Number: Effective Repository Date:2018-10-15 10/06/2018 SONIA B Primary SILVIO Wang [id number] Insurance:ANTHEMPolic LEHMANDOB: [facility] LUCÍA [facility], y Number: [id number] Hospital [place] [address]Tde: [id number] Repository Date:4385-40-33SR [address] () [address]MGXQMPP, [place] [address]KN: 10/06/2018 Secondary SONIA B [place] Insurance:ROEL OLIVIERB: [facility] [id number] Hospital PLANPolicy Number: Repository [id number] Date:1504-92-45ES [address] [place] [address]KQ: 10/06/2018 Tertiary NOT GIVENUNK [place] Insurance:SELF PAY [facility] Number: Effective Repository Date:2018-10-06 09/07/2018 SONIA B Primary SILVIO S [place] [id number] Insurance:ANTHEMPolic LEHMANDOB: [facility], y Number: [id number] Santa Fe Medical Center [address]Urj: [id number] Repository Date:4969-82-58FR [address] () 890097IRWRQOQ, [place] [address]JD: 09/07/2018 Secondary SONIA B [place] Insurance:ROEL OLIVIERB: [facility] [id number] Children's Psychiatric Centeric Number: Repository [id number] Date:8366-20-72KI [address] [place] [address]NF: 09/07/2018 Tertiary NOT GIVENUNK [place] Insurance:SELF PAY [facility] Number: Effective Repository Date:2018-09-01 08/13/2018 Sonia B Primary SILVIO S [place]ipe [id number] Insurance:ANTHEMPolic LEHMANDOB: [facility] LUCÍA [facility], y Number: [id number] [place] [address]Mib: [id number] Repository Date:5454-81-58HD [address] () [address]UYYAXMY, [place] [address]UK: 08/13/2018 Secondary SONIA B [place] Insurance:ROEL OLIVIERB: [facility] [id number] Hospital PLANPolicy Number: Repository [id number] Date:5809-54-09RZ [facility]OX [facility] [address]RH: 08/13/2018 Tertiary NOT GIVENUNK [place] Insurance:SELF PAY [facility] Number: Effective Repository Date:2018-08-13 07/31/2018 SONIA B Primary SILVIO Wang [id number] Insurance:ANTHEMPolic LEHMANDOB: [facility], y Number: [id number] Santa Fe Medical Center [address]Zlf: [id number] Repository Date:8047-51-98XB [address] () 000554KRDQSKX, [place] [address]RD: 07/31/2018 Secondary SONIA B [place] Insurance:ROEL OLIVIERB: [facility] [id number] General HospitalPolicy Number: Repository [id number] Date:0749-08-23LS [address] [address]OP: 07/31/2018 Tertiary NOT GIVENUNK [place] Insurance:SELF PAY [facility] Number: Effective Repository Date:2018-07-31 07/08/2018 Sonia B Primary SILVIO Wang [id number] Insurance:ANTHEMPolic LEHMANDOB: [facility], y Number: [id number] Santa Fe Medical Center [address]Jca: [id number] Repository Date:7544-02-57RF [address] () [address]556[address]HGSRKYI, [place] [address]YF: 07/08/2018 Secondary SONIA B [place] Insurance:ROEL OLIVIERB: [facility] [id number] General HospitalPolic Number: Repository [id number] Date:3475-62-81AK [address] [address]AV: 07/08/2018 Tertiary NOT GIVENUNK [place] Insurance:SELF PAY [facility] Number: Effective Repository Date:2018-07-08 05/30/2018 Sonia B Primary SILVIO Wang [id number] Insurance:ANTHEMPolic LEHMANDOB: [facility] LUCÍA [facility]ATH[facility]AC[facility], y Number: [id number] Santa Fe Medical Center [address]Ozq: [id number] Repository Date:0567-20-06WO [address] () 963571HYKBCAV, [place] [address]BL: 05/30/2018 Secondary SONIA B [place] Insurance:ROEL OLIVIERB: [facility] [id number] Hospital PLANPolicy Number: Repository [id number] Date:4331-41-60OE [address] [place], [place] [address]DONNELL [place] [address]TM: 05/30/2018 Tertiary NOT GIVENUNK Felipe Insurance:SELF PAY [facility] Number: Effective Repository Date:2018-05-30 12/01/2017 Sonia B Primary SILVIO Wang [id number] Insurance:ANTHEMPolic LEHMANDOB: [facility] LUCÍA [facility], y Number: [id number] Hospital [place] [address]Pbo: [id number] Repository Date:8484-81-74WL [address] () [address]LIOUKLH [place] [address]BH: 12/01/2017 Secondary SONIA B [place]ipe Insurance:ANNIAE SOYB: [facility] [id number] Hospital PLANPolicy Number: Repository [id number] Date:2787-18-32NK [address] [place], [place] [address]G[place] [address]MR: 12/01/2017 Tertiary NOT GIVENUNK Felipe Insurance:SELF PAY [facility] Number: Effective Repository Date:2017-12-01
== END ==
PROVIDERS: Visit Provider Obstetrics & Gynecology
DX: N39.0 Urinary tract infection, site not specified (principal)
CPT/HCPCS: 87086; 87088; 87186

== ENCOUNTER 2018-10-15 00:38 | Emergency (ER) | payer BC, MEDICAID, SELFPAY ==
[2018-10-15 00:39] VITALS: BP 119/99; PULSE 76; RESP 18; TEMP 36.2; O2SAT 100; BMI 31.0
[2018-10-15] MEDS: 0.9% Normal Saline 1,000 ML 999 ML IV (01:26)
[2018-10-15] MEDS: DiphenhydrAMINE 50 MG/ML Syringe IV (01:27)
[2018-10-15] MEDS: proCHLORPERazine 10 MG/2 ML Vial IV (01:27)
[2018-10-15] MEDS: Ketorolac 30 MG/ML Syringe IV (01:27)
--- NOTE | 2018-10-15 01:55 | ED.DCSUM_ITS ---
- ER Visit Summary Date of Service: 10/15/18 Chief Complaint: Headache History of Present Illness: The patient is a 23 F who goes to the [facility]. She reports that she has a headache that began yesterday at 9 AM. Is gradually gotten worse. She reports she gets similar headaches all the time. She describes as a sharp, throbbing pain posterior to her left eye. Is 10 at 10 worsening a 10 currently. Is worsened by light and sound. Is relieved by Maxalt and sleep. She has had nausea without vomiting. No change in her vision. No recent trauma to her head. No fever or chills. No numbness or weakness. Physical Examination: Vitals: Stable. Afebrile. General: Well-nourished and well-developed. Head: Normocephalic atraumatic. Neck: Supple, no lymphadenopathy. No JVD. Nontender. Cardiovascular: Regular rate and rhythm. No murmurs. Respiratory: No respiratory distress. Clear to auscultation bilaterally. Abdominal: Soft, nontender, nondistended, normal bowel sounds. No guarding, rebound, or peritoneal signs. Back: Nontender. Extremities: Nontender, no edema. Skin: Normal color, no rash. Neurologic: Alert and oriented ?3. Cranial nerves II through XII are intact. Normal strength and sensation. Psych: Normal affect. Emergency Department Course and Treatment: Patient had an IV placed. She was treated with Benadryl, Compazine, Toradol, and dexamethasone IV. She reports that her headache is completely resolved. Treatment Plan: Patient be discharged instructions to follow-up with her primary care physician in 1-2 days if not improving. Return to the emergency department for any worsening symptoms. Disposition: To home in improved and stable condition. Impression: 1. Migraine headache. This note was generated with JIT Solaireation software. It may contain incorrect words, spelling, and punctuation that were not noted in review of the chart prior to signing ED Disposition - Plan for ED Patient: Disposition: Home or Assisted Living Chief Complaint: Headache Instructions: ED Headache Migraine Referrals: Elise Banerjee NP-C [Primary Care Provider] - 1-2 Days if not improving
[2018-10-15 02:03] VITALS: BP 138/89; PULSE 81; O2SAT 99
== END 2018-10-15 02:07 | disposition home or self-care (01) ==
PROVIDERS: Emergency Provider Emergency Medicine; Family Provider Nurse Practitioner Family; PCP Nurse Practitioner Family
DX: G43.909 Migraine, unspecified, not intractable, without status migrainosus (principal); R19.7 Diarrhea, unspecified
CPT/HCPCS: 96361; 96374; 96375; 99283; A4216

== ENCOUNTER 2018-10-24 10:26 | Emergency (ER) | payer BC, MEDICAID, SELFPAY ==
[2018-10-24 10:27] VITALS: BP 137/85; PULSE 98; RESP 16; TEMP 36.8; O2SAT 97; BMI 31.6
--- NOTE | 2018-10-24 10:45 | ED.DCSUM_ITS ---
- ER Visit Summary Date of Service: 10/24/18 Chief Complaint: Headache History of Present Illness: The patient is a 23 F with a history of migraines. She presents with a headache that started overnight last night. It woke her up. It has been persistent since last night. Pain feels like her typical migra mukesh, but is more severe. Denies trauma. Denies fever. Denies blood thinner use. Denies weakness or numbness. She does have photophobia and phonophobia. Tried Maxalt, but had no improvement. Physical Examination: Afebrile and vital signs unremarkable. Head and neck are atraumatic. Heart regular. Lungs clear. Cranial nerve testing grossly intact. Normal strength and sensation. Normal cerebellar testing. Skin appears normal. Neck nontender with good range of motion. Test Results: None performed Emergency Department Course and Treatment: Patient has a known diagnosis of migraine. No new or red flag symptoms. She was treated with fluids, Compazine, Benadryl, and Toradol. At 12:30 PM, the patient is feeling better and requesting discharge. She will follow-up with her doctor. Treatment Plan: As above Disposition: Discharge Impression:. Acute cephalgia This note was generated with Novel dictation software. It may contain incorrect words, spelling, and punctuation that were not noted in review of the chart prior to signing ED Disposition - Plan for ED Patient: Chief Complaint: Headache Instructions: ED Headache Migraine Referrals: Elise Banerjee NP-C [Primary Care Provider] -
[2018-10-24] MEDS: DiphenhydrAMINE 50 MG/ML Syringe IV (11:18)
[2018-10-24] MEDS: proCHLORPERazine 10 MG/2 ML Vial IV (11:18)
[2018-10-24] MEDS: Ketorolac 30 MG/ML Syringe IV (11:18)
[2018-10-24] MEDS: 0.9% Normal Saline 1,000 ML 999 ML IV (11:18)
[2018-10-24 12:47] VITALS: BP 138/87; PULSE 88; RESP 14; RESP 17; O2SAT 99
== END 2018-10-24 12:49 | disposition home or self-care (01) ==
LOC: ED 10:58
PROVIDERS: Emergency Provider Emergency Medicine; Family Provider Nurse Practitioner Family; PCP Nurse Practitioner Family
DX: R51 Headache (principal); Z87.891 Personal history of nicotine dependence
CPT/HCPCS: 96361; 96374; 96375; 99283; J7030; A4216

== ENCOUNTER → 2019-01-02 18:09 | Outpatient (CLI) | payer BC, MEDICAID, SELFPAY ==
[2019-01-05 08:52] LABS: HPV Reflexed? NOT INDICATED
== END ==
PROVIDERS: Referring Provider Obstetrics & Gynecology; Visit Provider Obstetrics & Gynecology
DX: Z12.4 Encounter for screening for malignant neoplasm of cervix (principal); R30.0 Dysuria
CPT/HCPCS: 88175; G0145

== ENCOUNTER → 2019-01-16 14:11 | Outpatient (CLI) | payer BC, MEDICAID, SELFPAY | PROVIDERS: Visit Provider Obstetrics & Gynecology | DX: R30.0 Dysuria (principal) | CPT/HCPCS: 87086; 87088 ==

== ENCOUNTER → 2021-03-12 13:00 | Outpatient (CLI) | payer MEDICAID, SELFPAY | PROVIDERS: Visit Provider Obstetrics & Gynecology | DX: R30.0 Dysuria (principal); R39.15 Urgency of urination; Z87.440 Personal history of urinary (tract) infections | CPT/HCPCS: 87086; 87088 ==

== ENCOUNTER → 2021-09-01 11:18 | Outpatient (CLI) | payer MEDICAID, SELFPAY ==
[2021-09-02 22:07] LABS: Chlamydia By Nucleic Acid AMP Negative (Negative)
[2021-09-03 16:58] LABS: Gonococcus By Nucleic Acid AMP Negative (Negative)
== END ==
PROVIDERS: Visit Provider Student in an Organized Health Care Education/Training Program
DX: Z11.3 Encounter for screening for infections with a predominantly sexual mode of transmission (principal); Z32.01 Encounter for pregnancy test, result positive
CPT/HCPCS: 87491; 87591

== ENCOUNTER → 2021-09-04 16:06 | Outpatient (CLI) | payer MEDICAID, SELFPAY | PROVIDERS: Visit Provider Student in an Organized Health Care Education/Training Program | DX: Z03.818 Encounter for observation for suspected exposure to other biological agents ruled out (principal) | CPT/HCPCS: 87635; U0005; U0003 ==

== ENCOUNTER 2021-09-07 06:25 | Day surgery (SDC) | payer MEDICAID, SELFPAY ==
--- NOTE | 2021-09-07 | POC_PTH ---
PATIENT: CADEN DEE LOC: [facility] U#:[id number] AGE/SX: 26/F ROOM: RE09/07/[address]: Dr. Tere Reaves DO : 1995 BED: DIS: 09/07/2021 SPEC #: [id number] RECD: 09/07/21 12:46 STATUS: TYREE RENicky #: [id number] TRICIA: 09/07/21 00:[address]: Tere Reaves DEPT: SURGICAL PATHOLOGY RECD BY: Leobardo Stephen ENTERED: 09/07/21 12:46 SP TYPE: PROD CONC OTHR DR: Loren Allen, DIRECTOR PRODUCT DEVELOPMENTVishal Tissues: Product of conception, NOS Procedures: Surgery Specimen Level IV HEADER OPERATION: Suction dilation and curettage PRE-OP DIAGNOSIS: Missed TISSUE SUBMITTED: Products of conception MICROSCOPIC DIAGNOSIS Endometrium, curettage: Chorionic villi, decidualized stroma and trophoblastic cells consistent with products of conception. AM:sari 09/08/2021 MICROSCOPIC DESCRIPTION Slides are reviewed. GROSS DESCRIPTION Received in fixative is one container labeled with the patient's name and designated products of conception. The specimen consists of multiple irregular fragments of pink-red soft tissue that in aggregate measure 6 x 6.5 x 2 cm. tissue is not identified. Actuary Clerk tissue is submitted in three cassettes. / SJ:sari 09/07/21 TC:5 CPT: 68129
[2021-09-07 06:50] VITALS: BP 108/66; PULSE 72; RESP 16; TEMP 36.7; O2SAT 100; BMI 26.9
[2021-09-07 07:29] LABS: Hematocrit 37.1 % (37-47); Hemoglobin 12.6 g/dL (12.0-15.0); Mean Corpuscular Hgb 29.2 pg (27.0-32.0); Mean Corpuscular Volume 85.9 fL (81-99); Mean Platelet Vol. 8.9 fl (6.2-12.0); Platelet Count 315 K/mm3 (150-450); RBC Distribution Width CV 12.7 % (11.6-14.6); Red Blood Count 4.32 M/mm3 (4.2-5.4); White Blood Count 6.7 K/mm3 (4.4-11.0)
[2021-09-07] MEDS: Lactated Ringers 1,000 ML 15 ML IV (07:38)
--- NOTE | 2021-09-07 08:17 | PCM.HP.BLA ---
History and Physical Date of Admission: 09/07/21 HISTORY OF PRESENT ILLNESS: On 09/04/2021, Sonia Jaquez, a 26 year old female 2 0 1 0 2, presented for: suction dilation and curettage for missed . MEDICAL HISTORY: 1. Migraines MEDICATIONS HISTORY: 1. Supplement (s) [No Strength], medical marijuana 2. 28 mg iron-800 mcg tablet, 1po qday, gummy ALLERGIES: Penicillin, Hives, Amoxicillin, Hives, Amoxicillin, Hives and/or rash, Penicillins and Hives and/or rash SURGICAL HISTORY: 1. none MENSTRUAL HISTORY: LMP Known?- DefiniteAmount/Duration - 7 days, Regularity - Regular, Frequency - monthly days, LMP - 07/08/21, Age Onset Menarche - 14 PAST PREGNANCIES: Total Pregnancies - 3; Full Term Pregnancies - 2; Premature - 0; Abortions, Induced - 0; Abortions, Spontaneous - 1; Ectopics - 0; Multiple Births - 0; Living Children - 2 FAMILY HISTORY: noncontributory SOCIAL HISTORY: Alcohol Use - RARELY not while Smoking - smoked x 2-3 y. Quit 2012. Drugs - has medical marijuana for migraines REVIEW OF SYSTEMS: GENERAL - Denies fever, or chills SKIN - Denies skin changes EYES - Denies visual changes EARS - Denies difficulty hearing NOSE - Denies nasal congestion or bleeding MOUTH - Denies sore throat or difficulty swallowing NECK - Denies pain or swelling RESPIRATORY - Denies shortness of breath or wheezing CARDIOVASCULAR - Denies palpitations or chest pain GASTROINTESTINAL - Denies nausea, vomiting, diarrhea, constipation GENITOURINARY - Denies dysuria, frequency of urination, incontinence of urine MUSCULOSKELETAL - Denies joint or muscle pain NEUROLOGICAL - Denies localized numbness or weakness PSYCHIATRIC - Denies depression or anxiety ENDOCRINE - Denies heat or cold intolerance, weight loss or gain HEMATO-IMMUNOLOGIC - Denies excessive bleeding with cuts BP- 100/60 Sitting, Right arm, regular cuff Weight- 165.0 lbs Height- 66.0 inch BMI:26.63 CONSTITUTIONAL - NAD, well nourished, and well developed SKIN - No rash, lesions, or ulcers HEENT - Normocephalic, PERRLA, EOMI LUNGS - CTA x2 without wheezes, crackles or rales CARDIAC - Regular rate and rhythm without rubs, murmurs, or gallops ABDOMEN - Without hepatosplenomegaly, distention, masses, rebound, or guarding; normal bowel sounds; no hernias EXTREMITIES - No edema or calf tenderness NEUROLOGICAL - Cranial nerves II-XII grossly intact PSYCHIATRIC - A and O to time, place, person, mood and affect ASSESSMENT/PLAN: Missed . Suction dilation and curettage for management. R/B/A discussed. Risks include, but are not limited to: risk of bleeding to the point of transfusion, infection, injury to surrounding tissue (bowel/bladder/uterineperforation), VTE, ICU admission.
--- NOTE | 2021-09-07 08:19 | PCM.OPRPT ---
Report of Operation Date of Procedure: 09/07/21 Pre-Operative Diagnosis: Missed Post-Operative Diagnosis: Missed Surgery/Procedure Performed:: Suction Dilation and Curettage Description of Surgical Findings:: Normal-appearing external genitalia. Products of conception removed. Estimated Blood Loss (mL): 100cc Fluids Replaced: 600cc Description of Procedure: Patient taken to the operating room. MAC anesthesia induced. Patient placed in the dorsal lithotomy position and prepped and draped in the usual sterile fashion. Patient had voided prior to surgery. Weighted speculum placed in the posterior vagina and anterior lip of the cervix grasped with Allis clamp. Cervix sequentially dilated. Products of conception removed with suction curette in a 360 degree manner. Hemostasis noted after removal of products of conception. Allis clamp removed. Weighted speculum removed. At the end of the procedure all needle, lap, sponge counts correct. Complications None
--- NOTE | 2021-09-07 08:28 | PCM.DC ---
Discharge Instructions Diet Discharge Diet: No restrictions Activity Discharge Activity: Return to Normal Activity and May Shower May resume sexual activity in: 2 weeks Weight Bearing Status: Weight bearing as tolerated Lifting Restrictions: no restrictions Dressing / Incision Call your doctor if you observe: Fever of 101 or Higher, Change in Color, Inability to urinate, Using more than 1 pad per hour, Shortness of breath, Dizziness, Swelling in the ankles, Chest pain and Calf discomfort Follow Up Care Please Follow Up With: Tere Reaves DO When: 2 week post operative visit Test Results: Test results from this visit will be discussed in further detail at your follow-up appointment, if applicable. Discharge Plan Admission Primary Reason for Your Visit: Miscarriage Attending Provider: Tere Reaves Primary Care Provider: Loren Allen NP Discharge Orders/Prescriptions Prescriptions: No Action acetaminophen [Tylenol Extra Strength] 500 mg Capsule 1,000 mg PO Q6H PRN (Reason: Migraine Headache) RF: 0 Excedrin Migraine 250-250-65 mg Tablet 2 tab PO Q6H PRN (Reason: Migraine Headache) RF: 0 Referrals / Follow Up: Loren Allen NP, FLEET OPERATIONS MANAGER-C [Primary Care Provider] - Disposition Disposition (needs filled in before D/C Order can be placed): Home, Self Care
[2021-09-07 09:10] VITALS: BP 101/76; BP 108/66; PULSE 72; RESP 16; TEMP 36.3; O2SAT 96
[2021-09-07 09:15] VITALS: BP 108/66; BP 99/70; PULSE 73; RESP 16; O2SAT 100
[2021-09-07 09:20] VITALS: BP 105/69; BP 108/66; PULSE 69; RESP 16; O2SAT 100
[2021-09-07 09:25] VITALS: BP 101/67; BP 108/66; PULSE 65; RESP 16; TEMP 36.6; O2SAT 100
[2021-09-07 09:50] VITALS: BP 100/62; BP 108/66; PULSE 63; RESP 16; O2SAT 100
== END 2021-09-07 10:00 | disposition home or self-care (01) ==
LOC: SDC 06:28 → AC 06:29
PROVIDERS: PCP Nurse Practitioner Family; Referring Provider Student in an Organized Health Care Education/Training Program; Visit Provider Student in an Organized Health Care Education/Training Program
PROC: (CPT 59820; principal; 2021-09-07 08:15)
DX: O02.1 Missed abortion (principal); G43.909 Migraine, unspecified, not intractable, without status migrainosus; Z87.891 Personal history of nicotine dependence; Z88.0 Allergy status to penicillin; F12.90 Cannabis use, unspecified, uncomplicated; Z3A.00 Weeks of gestation of pregnancy not specified; Z3A.01 Less than 8 weeks gestation of pregnancy
CPT/HCPCS: 59820; 85027; 86850; 86900; 86901; 88305; J7120

== ENCOUNTER 2021-12-22 10:39 | Outpatient (CLI) | payer MEDICAID, SELFPAY ==
[2021-12-22 11:18] LABS: Absolute Neutrophil Count 2.9 X10^3/uL (2.0-7.7); Basophil# 0.04 X10^3/uL; Basophil% 0.8 % (0-1); Eosinophil# 0.06 X10^3/uL; Eosinophils% 1.1 % (0-5); Hematocrit 37.4 % (37-47); Hemoglobin 12.7 g/dL (12.0-15.0); Lymphocyte % 34.4 % (19-41); Mean Corpuscular Hgb 28.7 pg (27.0-32.0); Mean Corpuscular Volume 84.4 fL (81-99); Mean Platelet Vol. 9.2 fl (6.2-12.0); Monocyte# 0.41 X10^3/uL; Monocyte% 7.8 % (0-10); NRBC Flagged by Analyzer 0 % (0-5); Neutrophil # 2.91 X10^3/uL (2.7-7.7); Neutrophil % 55.5 % (47-70); Platelet Count 321 K/mm3 (150-450); RBC Distribution Width CV 13.2 % (11.6-14.6); RBC Distribution Width SD 40.9 fl (35.1-43.9); Red Blood Count 4.43 M/mm3 (4.2-5.4); White Blood Count 5.2 K/mm3 (4.4-11.0)
[2021-12-22 12:04] LABS: HIV - WCH Non-Reactive (Nonreactive); Hepatitis B Surface Antigen Non-Reactive (Nonreactive); Hepatitis C Antibody Non-Reactive (Nonreactive); Rubella IgG Reactive (Nonreactive); Syphilis Antibodies Non-reactive
[2021-12-23 22:07] LABS: Chlamydia By Nucleic Acid AMP Negative (Negative)
[2021-12-24 19:12] LABS: Gonococcus By Nucleic Acid AMP Negative (Negative)
[2021-12-25 19:04] LABS: HPV Reflexed? NOT INDICATED
== END 2021-12-22 23:59 | disposition home or self-care (01) ==
PROVIDERS: PCP Nurse Practitioner Family; Visit Provider Obstetrics & Gynecology
DX: Z12.4 Encounter for screening for malignant neoplasm of cervix (principal); Z11.3 Encounter for screening for infections with a predominantly sexual mode of transmission; Z34.81 Encounter for supervision of other normal pregnancy, first trimester
CPT/HCPCS: 36415; 85025; 86703; 86762; 86780; 86803; 87086; 87088; 87340; 87491; 87591; 88175; G0145

== ENCOUNTER 2022-02-12 18:09 | Emergency (ER) | payer MEDICAID, SELFPAY ==
[2022-02-12 18:10] VITALS: BP 112/66; PULSE 83; RESP 15; TEMP 36.6; O2SAT 97; BMI 25.2
[2022-02-12] MEDS: Ketorolac 30 MG/ML Syringe IV (20:31)
[2022-02-12] MEDS: DiphenhydrAMINE 50 MG/ML Syringe 25 MG IV (20:32)
[2022-02-12] MEDS: Metoclopramide 10 MG/2 ML Vial IV (20:32)
[2022-02-12] MEDS: 0.9% Normal Saline 1,000 ML 999 ML IV (20:32)
[2022-02-12 20:37] VITALS: BP 129/67; PULSE 87; RESP 15; O2SAT 99
--- NOTE | 2022-02-12 20:41 | EX.ED.VIS.HA ---
HPI History of Present Illness Chief Complaint: Headache Informant: patient Onset/Context/Timing Onset: Weeks (1) Context: Gradual Timing: Continuous Quality -Headache: Positive for Similar Prior Headaches Location: Right frontal Worsened by: Light, sound, stress Relieved by: Nothing Associated Symptoms/Injury Associated Symptoms: Positive for Nausea, Sinus Pressure and Photophobia; Negative for Fever, Vomiting, Sore Throat, Numbness, Tingling, Preceding Aura, Visual Changes, Blurred Vision and Visual Loss Injury - DO: Negative for Direct Trauma Narrative Narrative: Patient presents with migraine headache that has been getting worse over the last week. Patient states it has been constant. Patient states it is over the right frontal area. Patient states it is worse with light, sound, and stress. Patient admits to nausea but denies any vomiting. Patient admits to some sinus pressure and photophobia. Patient denies any preceding aura or visual changes. Patient denies any scotoma. Patient denies any paresthesias or weakness. Patient denies any trauma or injury. [facility] Medical History Easy bruising Former smoker Low iron Marijuana use Migraine headache Home Medications acetaminophen [Tylenol Extra Strength] 1,000 mg PO Q6H PRN 09/07/21 [History Last Taken Unknown] multivit [id number] 1-dha [PNV-DHA] 1 cap PO DAILY 02/12/22 [History Last Taken Unknown] Allergy/AdvReac Type Severity Reaction Status Date / Time amoxicillin [Amoxicillin] Allergy Rash Verified 02/12/22 18:10 Penicillins Allergy Rash Verified 02/12/22 18:10 Family History (Updated 09/07/21 @ 07:33 by Jacqui Spring) Other Family history of diabetes mellitus in maternal grandmother Family history of heart disease in maternal grandmother Family history of hypertension in grandmother Family history of hypertension in mother Family history of kidney disease in maternal grandmother Family history of migraine headaches Maternal family history of congestive heart failure Surgical History History of D&C Social History household members: spouse and children current occupational status: employed pets and animals: Yes Smoking Status: Former smoker ROS ROS ED Constitutional Constitutional ED: Denies chills or fever(s) Eyes Eyes: Denies blurry vision or change in vision ENT ENT ED: Denies rhinorrhea or sore throat Cardiovascular Cardiovascular: Denies chest pain or palpitations Respiratory/Chest Respiratory/Chest: Denies cough or dyspnea Gastrointestinal Gastrointestinal: Reports nausea; Denies vomiting Genitourinary Genitourinary ED: Denies dysuria or hematuria Musculoskeletal Musculoskeletal: Reports back pain and neck pain Integumentary Denies abscess or rash Neurologic Neurologic: Reports headache(s); Denies weakness Allergic/Immunologic Allergic/Immunologic ED: Denies mouth swelling or urticaria EXAM Physical Exam Const Vital Signs: 02/12/22 18:10 02/12/22 20:37 Temperature 97.9 F Temperature Source Temporal Pulse Rate 83 87 Respiratory Rate 15 15 Blood Pressure 112/66 129/67 H Blood Pressure Mean 81 87 Pulse Ox 97 99 Oxygen Delivery Method Room Air Room Air Positive well nourished and well developed General Appearance ED: well developed and NAD HEENT Reports normocephalic atraumatic Neck supple and no JVD Resp normal respiratory effort and clear to auscultation bilaterally Cardio regular rate and regular rhythm GI non-tender Palpation: soft Neuro oriented x3, CN's II-XII intact bilaterally and no sensory deficits noted Sensorium / Orientation: awake and alert Speech: speech normal Motor Exam: strength 5/5 throughout Psych mental status grossly normal MDM MDM MDM Narrative Medical decision making narrative: Patient was given IV fluids, Reglan, Benadryl, and Toradol. Patient is feeling better on reevaluation. Patient was instructed to rest in a dark quiet room. Patient was instructed to follow-up with her primary care physician in 5 to 7 days. Patient understood and was agreeable with the plan. All questions were answered. Discharge Plan Triage Chief Complaint: Headache ED Provider: Vel Reyes Dx/Rx/DC Orders Clinical Impression: Migraines, First trimester Instructions: ED, Migraine (Classical) Prescriptions: No Action acetaminophen [Tylenol Extra Strength] 500 mg Capsule 1,000 mg PO Q6H PRN (Reason: Migraine Headache) RF: 0 PNV-DHA 27 mg iron-1 mg -300 mg capsule 1 cap PO DAILY RF: 0 Primary Care Provider: Loren Allen NP Referrals: Lorson,Loren AUDIT CONTROL CLERK, AUDIT CONTROL CLERK-C [Primary Care Provider] - 3-5 Days Disposition Disposition: Home, Self Care
[2022-02-12 22:17] VITALS: BP 142/78; PULSE 75; RESP 15; O2SAT 98
== END 2022-02-12 22:22 | disposition home or self-care (01) ==
PROVIDERS: Emergency Provider Emergency Medicine; PCP Nurse Practitioner Family; Visit Provider Emergency Medicine
DX: O99.351 Diseases of the nervous system complicating pregnancy, first trimester (principal); O99.891 Other specified diseases and conditions complicating pregnancy; G43.909 Migraine, unspecified, not intractable, without status migrainosus; Z87.891 Personal history of nicotine dependence
CPT/HCPCS: 99283; J7030

== ENCOUNTER 2022-04-29 14:45 | Outpatient (CLI) | payer MEDICAID, SELFPAY ==
[2022-04-29 15:03] VITALS: BP 102/59; PULSE 67
[2022-04-29 15:09] VITALS: BP 102/59; PULSE 73; TEMP 36.9; O2SAT 99
[2022-04-29 15:15] VITALS: BMI 25.4
[2022-04-29 16:09] LABS: Color, Urine Yellow (Yellow); Glucose, Dipstick Normal (Normal); Ketone-Dipstick 50 mg/dl (Negative); Leukocyte Esterase-Dipstick Negative /ul (Negative); Nitrite-Dipstick Negative (Negative); Occult Blood-Urine Negative /ul (Negative); Protein-Dipstick Negative (Negative); Specific Gravity, Urine 1.025 (1.002-1.030); Urine Bilirubin Dipstick Negative (Negative); Urine Clarity Sl. Cloudy (Clear); Urine Urobilinogen 1 mg/dl (Normal)
[2022-04-29 16:28] LABS: Bacteria 2+ /hpf (None Seen); Mucous, Urine 1+ /hpf (<or=2+); Red Blood Cells-Urine 0-5 SEEN /hpf (0-5); Squamous Epithelial Cells - UA 10-25 SEEN /hpf (5-10); White Blood Cells 0-5 SEEN /hpf (0-5)
--- NOTE | 2022-04-29 16:42 | OB.TRI.NOTE ---
HPI - General General Date of Admission: 04/29/22 Date of Service: 04/29/22 HPI Narrative CADEN DEE, is a 26 F who presents with c/o lower abdominal cramping and bright red spotting on wiping early this afternoon after urinating. She reports spotting x 1 and cramping irregular in timing. Denies fall, abdominal trauma, motor vehicle accident. No prior bleeding episodes this . Patient with hx low lying placenta 14mm from cervix at 20w scan. Reports she otherwise feels well. PFSH PFSH Medical History Easy bruising Former smoker Low iron Marijuana use Migraine headache Home Medications acetaminophen 500 mg capsule 1,000 mg PO Q6H PRN Migraine Headache 09/07/21 [History Last Taken Unknown] multivitamin no.47-iron fum 27 mg-folate no.1 1 mg-dha 300 mg capsule (PNV-DHA) 1 cap PO DAILY 02/12/22 [History Last Taken Unknown] Allergy/AdvReac Type Severity Reaction Status Date / Time amoxicillin [Amoxicillin] Allergy Rash Verified 02/12/22 18:10 Penicillins Allergy Rash Verified 02/12/22 18:10 Family History Other Family history of diabetes mellitus in maternal grandmother Family history of heart disease in maternal grandmother Family history of hypertension in grandmother Family history of hypertension in mother Family history of kidney disease in maternal grandmother Family history of migraine headaches Maternal family history of congestive heart failure Surgical History History of D&C Social History (Updated 04/29/22 @ 16:[address] 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 Smoking Status: Former smoker History 4 Elective abortions Hx Para 2 Spontaneous abortions 1 Hx # Term Pregnancies 2 Ectopic pregnancies Hx # Pregnancies Multiple births # of living children ROS Constitutional Constitutional: Denies chills, fever(s) or headache(s) ENT HEENT: Denies ear pain, nasal congestion, nasal discharge or sore throat Cardiovascular Cardiovascular: Denies chest pain, dyspnea, nausea or vomiting Respiratory/Chest Respiratory/Chest: Denies cough Gastrointestinal Gastrointestinal: Denies constipation or diarrhea Genitourinary Genitourinary: Denies burning urination, change in urinary stream, difficulty urinating, flank pain, genital pain, itching or urinary urgency Musculoskeletal Musculoskeletal: Reports other Details: back pain - pt attributes to long work hours standing Physical Exam Const alert, oriented x3 and no apparent distress Resp normal respiratory effort and normal air movement GI GI Narrative: soft, nontender, nondistended, gravid OB / External & Speculum: external exam normal and other no lesions appreciated, cervix visually closed with NO blood in the vaginal vault, cervix normal in appearance. Digital exam deferred Neuro oriented x3 and moves all extremities NST FHR Rate Baby A Baseline: 135 Variability:: Minimal Accelerations:: 10 x 10 Decelerations:: Variable NST Reactive:: Appropriate for gestational age FHR Category:: Category II Uterine Activity:: 0/10 Assessment & Plan (1) 24 weeks gestation of : (2) Spotting affecting in second trimester: PLAN: Exam unremarkable, no ongoing bleeding status AGA and no evidence of PTL US tomorrow - follow up as scheduled U/A and UCx pending Charges/Coding Visit Charges Office Visits / Consults: [id number] OV L3 Est
== END 2022-04-29 16:14 | disposition home or self-care (01) ==
LOC: WPOUT 14:54 → WP 14:55
PROVIDERS: PCP Nurse Practitioner Family; Visit Provider Obstetrics & Gynecology
DX: O26.852 Spotting complicating pregnancy, second trimester (principal); Z3A.24 24 weeks gestation of pregnancy; Z87.891 Personal history of nicotine dependence
CPT/HCPCS: 59025; 59050; 81001; 87077; 87086; 87088; 87186; 99218; G0378

== ENCOUNTER → 2022-04-30 | Outpatient (CLI) | payer MEDICAID, SELFPAY ==
[2022-04-30 12:32] LABS: Hematocrit 31.4 % (37-47); Hemoglobin 10.5 g/dL (12.0-15.0); Mean Corp Hgb Conc 33.4 g/dL (32-36); Mean Corpuscular Hgb 30.4 pg (27.0-32.0); Mean Platelet Vol. 9.1 fl (6.2-12.0); Platelet Count 249 K/mm3 (150-450); RBC Distribution Width CV 12.7 % (11.6-14.6); RBC Distribution Width SD 41.7 fl (35.1-43.9); Red Blood Count 3.45 M/mm3 (4.2-5.4); White Blood Count 9.7 K/mm3 (4.4-11.0)
[2022-04-30 12:49] LABS: Glucose Challenge Gest 1H 50g 105 mg/dL (70-140)
== END | disposition home or self-care (01) ==
LOC: WOBLAB 12:17
PROVIDERS: PCP Nurse Practitioner Family; Visit Provider Student in an Organized Health Care Education/Training Program
DX: Z34.83 Encounter for supervision of other normal pregnancy, third trimester (principal)
CPT/HCPCS: 36415; 82950; 85027

== ENCOUNTER 2022-06-20 04:40 | Outpatient (CLI) | payer MEDICAID, SELFPAY ==
[2022-06-20] VITALS (31 sets, daily range): BP systolic 106–126; BP diastolic 59–77; PULSE 69–96; TEMP 36.8–36.9; O2SAT 87–100; BMI 25.8
[2022-06-20] MEDS: Acetaminophen 500 MG Tablet 1000 MG PO (06:19)
[2022-06-20] MEDS: Lactated Ringers 1,000 ML 999 ML IV (07:35)
[2022-06-20 07:56] LABS: Absolute Lymphocyte Count 1.36 X10^3/uL (0.83-4.51); Absolute Neutrophil Count 7.2 X10^3/uL (2.0-7.7); Basophil# 0.03 X10^3/uL; Basophil% 0.3 % (0-1); Eosinophil# 0.05 X10^3/uL; Eosinophils% 0.5 % (0-5); Hematocrit 30.3 % (37-47); Hemoglobin 10.2 g/dL (12.0-15.0); Lymphocyte # 1.36 X10^3/ul (0.83-4.51); Lymphocyte % 14.8 % (19-41); Mean Corp Hgb Conc 33.7 g/dL (32-36); Mean Corpuscular Hgb 29.3 pg (27.0-32.0); Mean Corpuscular Volume 87.1 fL (81-99); Mean Platelet Vol. 9.5 fl (6.2-12.0); Monocyte# 0.43 X10^3/uL; Monocyte% 4.7 % (0-10); NRBC Flagged by Analyzer 0 % (0-5); Neutrophil # 7.18 X10^3/uL (2.7-7.7); Neutrophil % 78.5 % (47-70); Platelet Count 204 K/mm3 (150-450); RBC Distribution Width CV 12.9 % (11.6-14.6); RBC Distribution Width SD 40.7 fl (35.1-43.9); Red Blood Count 3.48 M/mm3 (4.2-5.4); White Blood Count 9.2 K/mm3 (4.4-11.0)
--- NOTE | 2022-06-20 09:20 | PCM.PN.OB ---
Subjective Subjective G4, P2 at 31/3 weeks presenting with right-sided jaw and sinus pain. Patient states she had dental infection a few weeks ago and was given clindamycin by dentist. Has not been seen and has appointment in June. States that she had been feeling better however yesterday pain started again and has been constant. Sharp in her right sinus area right upper jaw, right TMJ. Has tried Tylenol which has not helped. No fevers. No rhinorrhea, cough, visual disturbances, nausea or vomiting. Reports movement, denies leaking of fluid/vaginal bleeding/contractions. Objective Data Objective Data Vital Signs: Vital Signs Temp Pulse BP Pulse Ox 98.4 F 78 106/59 L 100 06/20/22 07:38 06/20/22 09:17 06/20/22 07:38 06/20/22 09:17 Weight: 72.665 kg Body Mass Index (BMI) 25.8 Intake & Output: Intake and Output for Last 24 Hours 06/18/22 06/19/22 06/20/22 23:59 23:59 23:59 Intake Total 1000 / 1000 Balance 1000 / 1000 Lab / Micro Data Attestation: I reviewed the patient's lab results. Result Diagrams: 06/20/22 07:35 Labs: Laboratory Results - last 24 hr 06/20/22 07:35: WBC 9.2, RBC 3.48 L, Hgb 10.2 L, Hct 30.3 L, MCV 87.1, MCH 29.3, MCHC 33.7, RDW Std Deviation 40.7, RDW Coeff of [place] 12.9, Plt Count 204, MPV 9.5, Immature Gran % (Auto) 1.200 H, Neut % (Auto) 78.5 H, Lymph % (Auto) 14.8 L, [place] % (Auto) 4.7, Eos % (Auto) 0.5, Baso % (Auto) 0.3, Absolute Neuts (auto) 7.2, Absolute Lymphs (auto) 1.36, Nucleated RBC % 0 06/20/22 07:35: Blood Type A POSITIVE, Antibody Screen NEGATIVE Physical Exam Const alert, oriented x3 and no apparent distress HEENT normocephalic and moist oral mucous membranes Head and Scalp: atraumatic Face and Sinus: sinus tenderness Positive for maxillary (right) Nose: Negative for nasal discharge Teeth and Gingiva: abnormal tooth and associated gingiva Positive for tenderness (Right maxillary tenderness. No abscess noted. Poor dentition in entire oral cavity) Eyes PERRL and EOMs intact bilaterally Neck full ROM and no lymphadenopathy Resp normal respiratory effort Cardio regular rate GI soft to palpation and non-tender Inspection: gravid Extremity normal to inspection and no pedal edema Neuro no focal motor deficits and no sensory deficits noted NST FHR Rate Baby A Baseline: 135/mod cayla/+accel/ no decel Decelerations:: None NST Reactive:: Yes Assessment & Plan (1) Pain, dental: PLAN: Plan 26-year-old G4, P2 with likely dental infection right maxilla. ? Will treat with clindamycin. Patient to call dentist tomorrow to move up appointment. ? We will trial oxycodone x1. 5 tabs sent to pharmacy to help pain control until patient is able to see dentist. ? heart rate monitoring at this time reassuring. Moderate variability with accelerations. ? Patient had deceleration around 540 this morning while patient was sitting up. Also had isolated variable deceleration at 0704. Patient is now on pulse ox monitor for maternal heart rate, variable did decrease to maternal heart rate level around 90s. Bedside ultrasound completed with normal BETH of 11.5, baby was practiced breathing with gross movement and normal tone. Status reassuring at this time based on variability and accelerations, and modified BPP. Patient has been monitored for hour and a half since variable deceleration with no further. ?Discharge pending pain control and continued reassuring status.
[2022-06-20] MEDS: oxyCODONE 5 MG Tablet PO (09:39)
== END 2022-06-20 10:11 | disposition home or self-care (01) ==
LOC: WPOUT 04:52 → WP 04:53
PROVIDERS: PCP Nurse Practitioner Family; Visit Provider Student in an Organized Health Care Education/Training Program
DX: O99.613 Diseases of the digestive system complicating pregnancy, third trimester (principal); J34.89 Other specified disorders of nose and nasal sinuses; K08.89 Other specified disorders of teeth and supporting structures; Z3A.31 31 weeks gestation of pregnancy; R68.84 Jaw pain; O99.513 Diseases of the respiratory system complicating pregnancy, third trimester
CPT/HCPCS: 96360; 36415; 59025; 59050; 76815; 85025; 86850; 86900; 86901; 99218; J7120; G0378

== ENCOUNTER 2022-08-23 16:30 | Inpatient (IN) | payer MEDICAID, SELFPAY ==
[2022-08-23 16:50] VITALS: PULSE 102; O2SAT 98
[2022-08-23 16:51] VITALS: BP 144/86; PULSE 103; TEMP 36.2
--- NOTE | 2022-08-23 18:24 | PCM.HP.BLA ---
History and Physical Date of Admission: 08/23/22 27-year-old G4, P2 at 40/4 weeks, [facility] 08/19/2022 by LMP, admitted for induction of labor for tachycardia. Patient was seen in office today and had NST. Patient was monitored for 80 minutes with persistent tachycardia in the 170s?180s. Decision at that time for induction of labor was made. Denies regular contractions, leaking of fluid, vaginal bleeding. Reports movement. Denies headache or vision changes, chest pain or shortness of breath, nausea or vomiting, diarrhea or constipation, fevers or chills. 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 Migraine 2. History of dental infections Surgical history: 1. D&C Medications: 1. vitamin 2. Clindamycin Social history: Former tobacco use, current rare THC use denies any other drug use, no alcohol Family history: Noncontributory. No history of blood clots or bleeding disorders Allergies: Penicillin causes rash. Has not had since 2-year-old. No laryngeal edema or shortness of breath. Review of system: Negative otherwise stated above Physical exam: BP 144/86, HR 103, T 97.1F General: No acute distress HEENT: Normocephalic/atraumatic, PERRLA Cardiorespiratory: No increased effort Abdomen: Soft, nontender, gravid Extremities: No edema Neurologic: Cranial nerves II through XII grossly intact Musculoskeletal: Strength 5 out of 5 throughout extremities Cervical exam: 1 cm in office heart rate: 155/mod april/+accel/no decel [place]: quiet panel A+ Rubella immune GBS positive Hepatitis B/C/HIV negative Syphilis negative gonorrhea/chlamydia negative Assessment/plan: 27-year-old G4, P2 at 40/4 weeks, [facility] 08/19/2022 by LMP, admitted for induction of labor for tachycardia. Additionally initial blood pressure elevated 140s systolic. complicated by: Migraines, current possible dental infection on clindamycin, history of THC use for migraines ?Admit for induction of labor with Cytotec ?Continue clindamycin ?GBS positive with penicillin allergy. Penicillin allergies rash.
[2022-08-23 18:35] VITALS: BP 133/74; PULSE 86; TEMP 36.4
[2022-08-23] MEDS: Acetaminophen 500 MG Tablet PO (19:56)
[2022-08-23] MEDS: 0.9% Saline Lock 10 ML Syringe IV ×2 (20:08→22:14)
[2022-08-23 20:16] VITALS: BP 132/78; PULSE 96; PULSE 98; TEMP 36.6; O2SAT 100
[2022-08-23] MEDS: miSOPROStol 25 MCG TABLET VAGINAL (20:23)
[2022-08-23 20:24] LABS: Absolute Lymphocyte Count 2.12 X10^3/uL (0.83-4.51); Absolute Neutrophil Count 9.7 X10^3/uL (2.0-7.7); Basophil# 0.04 X10^3/uL; Basophil% 0.3 % (0-1); Eosinophil# 0.04 X10^3/uL; Eosinophils% 0.3 % (0-5); Hematocrit 30.6 % (37-47); Hemoglobin 10.1 g/dL (12.0-15.0); Lymphocyte # 2.12 X10^3/ul (0.83-4.51); Lymphocyte % 16.3 % (19-41); Mean Corpuscular Hgb 26.3 pg (27.0-32.0); Mean Corpuscular Volume 79.7 fL (81-99); Mean Platelet Vol. 9.2 fl (6.2-12.0); Monocyte# 0.88 X10^3/uL; Monocyte% 6.8 % (0-10); NRBC Flagged by Analyzer 0 % (0-5); Neutrophil # 9.73 X10^3/uL (2.7-7.7); Neutrophil % 74.6 % (47-70); Platelet Count 209 K/mm3 (150-450); RBC Distribution Width CV 14.1 % (11.6-14.6); RBC Distribution Width SD 40.6 fl (35.1-43.9); Red Blood Count 3.84 M/mm3 (4.2-5.4)
[2022-08-23] MEDS: Cefazolin 2 GM in 0.9% Normal Saline 100 ML IV (20:50)
[2022-08-23] MEDS: Lactated Ringers 1,000 ML 50 ML IV (20:50)
[2022-08-23 20:56] VITALS: BMI 27.9
[2022-08-24] VITALS (28 sets, daily range): BP systolic 108–146; BP diastolic 56–86; PULSE 38–131; RESP 16–18; TEMP 36.6–36.9; O2SAT 79–100
[2022-08-24] MEDS: miSOPROStol 25 MCG TABLET VAGINAL ×2 (00:23→05:20)
[2022-08-24] MEDS: Clindamycin HCl 150 MG Capsule 600 MG PO ×3 (01:32→18:33)
[2022-08-24] MEDS: Acetaminophen 500 MG Tablet PO ×2 (02:07→08:20)
[2022-08-24] MEDS: Cefazolin 1 GM/50 ML BAG IV (05:16)
--- NOTE | 2022-08-24 05:27 | PN.OBGYN_ITS ---
Subjective Subjective Patient seen and examined. Was able to get some rest overnight. No questions or concerns this morning. Objective Data Objective Data Vital Signs: Vital Signs Temp Pulse BP Pulse Ox 97.8 F 107 H 127/78 H 100 08/23/22 20:16 08/24/22 05:13 08/24/22 05:13 08/23/22 20:16 Weight: 78.6 kg Body Mass Index (BMI) 27.9 Intake & Output: Intake and Output for Last 24 Hours 08/22/22 08/23/22 08/24/22 23:59 23:59 23:59 Intake Total 920 / 920 0 / 0 Balance 920 / 920 0 / 0 Lab / Micro Data Result Diagrams: 08/23/22 20:00 Labs: Laboratory Results - last 24 hr 08/23/22 20:00: WBC 13.0 H, RBC 3.84 L, Hgb 10.1 L, Hct 30.6 L, MCV 79.7 L, MCH 26.3 L, MCHC 33.0, RDW Std Deviation 40.6, RDW Coeff of [place] 14.1, Plt Count 209, MPV 9.2, Immature Gran % (Auto) 1.700 H, Neut % (Auto) 74.6 H, Lymph % (Auto) 16.3 L, [place] % (Auto) 6.8, Eos % (Auto) 0.3, Baso % (Auto) 0.3, Absolute Neuts (auto) 9.7 H, Absolute Lymphs (auto) 2.12, Nucleated RBC % 0 08/23/22 20:00: Blood Type A POSITIVE, Antibody Screen NEGATIVE Physical Exam Const alert, oriented x3 and no apparent distress General Appearance: comfortable HEENT normocephalic Head and Scalp: atraumatic Eyes PERRL Resp normal respiratory effort Cardio regular rate GI soft to palpation, non-tender and non-distended Inspection: gravid Narrative: CE per RN 1-1.5 this morning Extremity normal to inspection Skin no rashes or lesions noted Neuro moves all extremities, no focal motor deficits and no sensory deficits noted Psych mental status grossly normal NST FHR Rate Baby A Baseline: 135 Variability:: Moderate Accelerations:: 15 x 15 Decelerations:: None FHR Category:: Category I Uterine Activity:: irregular Assessment & Plan (1) : PLAN: G4, P2 at 40/5 weeks for induction of labor for tachycardia. tachycardia resolved. Blood pressures now within normal limits, admission slig htly elevated. Continue Cytotec induction. AROM and changed Pitocin when appropriate. Continued Ancef. Clindamycin for dental infection.
[2022-08-24] MEDS: LACTATED RINGERS 500 ML 999 ML IV ×2 (08:21→11:17)
[2022-08-24] MEDS: fentaNYL-bupivacaine (epidural) 100 ML BAG EPIDURAL (09:30)
[2022-08-24] MEDS: Oxytocin 15 Units/NS 250ml 15 UNITS/250 ML IV.SOLN 2 UNITS IV (10:39)
--- NOTE | 2022-08-24 12:05 | EX.PCM.OBRPT ---
Vaginal Delivery Operative Information Date of Procedure: 08/24/22 Pre-Operative Diagnosis: [place] intrauterine at term Post-Operative Diagnosis: [place] intrauterine at term Surgery / Procedure Performed: Spontaneous Vaginal Delivery Type of Anesthesia: Epidural Estimated Blood Loss: 250cc Findings Description of Procedure: Spontaneous vaginal delivery viable infant female. No nuchal cord. Baby to mom. Cord clamped and cut. Spontaneous delivery of placenta. No lacerations. Infant A Gender: Female (1 minute): 8 (5 minute): 9
[2022-08-24] MEDS: Acetaminophen 500 MG Tablet 1000 MG PO ×2 (16:01→22:23)
[2022-08-24] MEDS: Ibuprofen 600 MG Tablet PO (18:40)
--- NOTE | 2022-08-24 21:15 | NURSING ---
pt called this RN at 2055 for a gush of blood she felt in her pad with abdominal cramping and asked this RN to come help her in the bathroom. Pt had a decent sized clot but was smaller in thickness than an egg and had moderate amount of blood in her pad. She was sitting on the toilet and had slow dribbling of bleeding while on the toilet but was able to clean up and put on a new pad and when in bed, fundus was 1 below and firm and pt had very small amount of blood in her pad while doing so. Pt bood pressure was 126/72.
--- NOTE | 2022-08-24 21:37 | NURSING ---
pt rang staff assist jessica in bathroom around 2124 and this RN went in room with Daniela JENNINGS and Lizz Gonzales RN. Pt said she had more bleeding and felt her pad getting heavy and was in bathroom dripping small amounts of blood into the toilet with moderate amount in her pad. No clots were seen in pad or in toilet from what this RN could see but pt was already starting to clean herself up. Daniela JENNINGS stayed to help and felt pts fundus with me and she was at umbilicus and firm and pt asymptomatic. Daniela JENNINGS talked to Dr. Mylene Reaves and she wants to continue to monitor the pt and no further orders at this time.
[2022-08-24] MEDS: Methylergonovine 0.2 MG/ML Ampul IM (22:24)
--- NOTE | 2022-08-24 23:01 | NURSING ---
Pt had a third gush of blood around 2204 when this RN entered room and pad has an egg sized clot and pt was dribbling blood while sitting on the toilet. This RN called Daniela JENNINGS to observe then this RN called Dr. Stephanie Reaves to inform her of pts increase in bleeding and ordered .2 mg of IM methergine to be given and that was administered to pt at 2222.
[2022-08-25] VITALS (10 sets, daily range): BP systolic 118–134; BP diastolic 61–76; PULSE 81–94; RESP 16; TEMP 36.2–36.8; O2SAT 98–100
[2022-08-25] MEDS: Ibuprofen 600 MG Tablet PO ×4 (00:40→20:32)
[2022-08-25] MEDS: Clindamycin HCl 150 MG Capsule 600 MG PO ×3 (02:39→20:32)
--- NOTE | 2022-08-25 04:38 | NURSING ---
When this RN in room for 0400 vitals at 0405, pt got up to bathroom and called this RN in bathroom to see a clot she felt she was passing. Upon inspection, a large clot was hanging from the pts vagina and looked about the size of a softball at first glance. This RN called in charge Katherin JENNINGS to examine and opun trying to help pass the clot, once the clot was fully passed, the clot was the size of approx. 2 softballs and was passed into the toilet before this RN could catch it to weigh once pt was sitting, what looked to be some sort of tissue/membrane was hanging out of the pts vagina and then this RN proceeded to call Dr. Stephanie Reaves . Pt denies any symptoms and VS WNL and Katherin RN did a fundus check and pt was firm at 1 below umbilicus.
[2022-08-25 04:50] LABS: Absolute Lymphocyte Count 2.22 X10^3/uL (0.83-4.51); Absolute Neutrophil Count 9.5 X10^3/uL (2.0-7.7); Basophil# 0.04 X10^3/uL; Basophil% 0.3 % (0-1); Eosinophil# 0.04 X10^3/uL; Eosinophils% 0.3 % (0-5); Hematocrit 24.6 % (37-47); Lymphocyte # 2.22 X10^3/ul (0.83-4.51); Lymphocyte % 16.7 % (19-41); Mean Corp Hgb Conc 32.5 g/dL (32-36); Mean Corpuscular Hgb 26.4 pg (27.0-32.0); Mean Corpuscular Volume 81.2 fL (81-99); Mean Platelet Vol. 9.4 fl (6.2-12.0); Monocyte# 1.24 X10^3/uL; Monocyte% 9.3 % (0-10); NRBC Flagged by Analyzer 0 % (0-5); Neutrophil # 9.48 X10^3/uL (2.7-7.7); Neutrophil % 71.1 % (47-70); Platelet Count 202 K/mm3 (150-450); RBC Distribution Width CV 14.1 % (11.6-14.6); Red Blood Count 3.03 M/mm3 (4.2-5.4); White Blood Count 13.3 K/mm3 (4.4-11.0)
[2022-08-25] MEDS: miSOPROStol 200 MCG Tablet 1000 MCG RC (04:54)
--- NOTE | 2022-08-25 05:09 | PN.OBGYN_ITS ---
Subjective Subjective Patient had some bleeding overnight. Denies dizziness or lightheadedness, shortness of breath or chest pain. Reports some cramping since she was given Methergine. Objective Data Objective Data Vital Signs: Vital Signs Temp Pulse Resp BP Pulse Ox O2 Del Method 97.6 F L 81 16 118/70 100 Room Air 08/25/22 04:20 08/25/22 04:20 08/25/22 04:20 08/25/22 04:20 08/24/22 23:23 08/24/22 23:23 Oxygen Delivery Method Room Air Weight: 78.6 kg Body Mass Index (BMI) 27.9 Intake & Output: Intake and Output for Last 24 Hours 08/23/22 08/24/22 08/25/22 23:59 23:59 23:59 Intake Total 920 / 920 1292.32 / 1292.32 Output Total 1200 / 1200 Balance 920 / 920 92.32 / 92.32 Lab / Micro Data Attestation: I reviewed the patient's lab results. Result Diagrams: 08/25/22 04:35 Labs: Laboratory Results - last 24 hr 08/25/22 04:35: WBC 13.3 H, RBC 3.03 L, Hgb 8.0 L, Hct 24.6 L, MCV 81.2, MCH 26.4 L, MCHC 32.5, RDW Std Deviation 41.0, RDW Coeff of [place] 14.1, Plt Count 202, MPV 9.4, Immature Gran % (Auto) 2.300 H, Neut % (Auto) 71.1 H, Lymph % (Auto) 1 6.7 L, [place] % (Auto) 9.3, Eos % (Auto) 0.3, Baso % (Auto) 0.3, Absolute Neuts (auto) 9.5 H, Absolute Lymphs (auto) 2.22, Nucleated RBC % 0 Physical Exam Const alert, oriented x3 and no apparent distress HEENT normocephalic Head and Scalp: atraumatic Neck full ROM Resp normal respiratory effort Cardio regular rate GI normal to inspection, nondistended, normoactive bowel sounds GI Narrative: Uterus 2 cm below umbilicus, fundus firm and appropriately tender. Vaginal exam confirmed no lacerations. Placental membranes noted in vagina. Grasped with ring forceps and removed. Bimanual exam completed with small amount of clot noted in the cervix along with another small piece of placental membranes which were grasped and removed with ring forceps. No active bleeding at time of exam. Back/Spine normal ROM Extremity normal to inspection Extremity Narrative: Minimal pedal edema Neuro no focal motor deficits and no sensory deficits noted Psych mental status grossly normal and affect normal Assessment & Plan (1) Vaginal delivery: PLAN: day 1 status post . Patient had increased bleeding overni ght and was given Methergine x1. Had 2 additional softball size clots this morning per RN, RN estimating approximately 1L (clots fell into toilet and were unable to be weighed). Bedside ultrasound today showing thin endometrial stripe without blood flow. On vaginal exam noted placental membranes which were removed in entirety. Ultrasound again confirmed thin endometrial stripe and thin lower uterine segment. Bleeding likely secondary to portion of placental membranes. 1000 mcg of rectal Cytotec given this morning. Repeat CBC showing acute on chronic anemia secondary to bleeding and delivery. Discussed IV iron infusion versus oral. Patient elects for oral. Will start, continue every other day on discharge. Recommend discharge home tomorrow. (2) Dental infection:
[2022-08-25] MEDS: Acetaminophen 500 MG Tablet 1000 MG PO ×3 (05:16→20:31)
--- NOTE | 2022-08-25 05:48 | NURSING ---
Dr Reaves in to assess patient at 0450 at bedside. Iv inserted and CBC sent per Ailyn Griffith RN. U/S done at bedside and vaginal exam done per Dr Reaves. Small amount of membrane removed. Weighed pads from this shift for a total of 901ml EBL and estimated 1000ml clot expressed into toilet. 1000mcg Cytotec placed rectally. Po iron to be ordered to start today. Fundus remains firm 1 below umbilcus. Patient tolerated exam well updated on plan of care.
[2022-08-25] MEDS: Ferrous Sulfate 325 MG Tablet PO (13:38)
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
[2022-08-26 02:15] VITALS: BP 107/62; PULSE 72; PULSE 79; RESP 16; TEMP 36.6; O2SAT 100; O2SAT 79
[2022-08-26] MEDS: Clindamycin HCl 150 MG Capsule 600 MG PO (03:33)
[2022-08-26] MEDS: Acetaminophen 500 MG Tablet 1000 MG PO (03:37)
[2022-08-26] MEDS: Ibuprofen 600 MG Tablet PO (03:37)
[2022-08-26 07:46] VITALS: BP 113/57; PULSE 75; PULSE 76; RESP 16; TEMP 36.4
--- NOTE | 2022-08-26 08:29 | PCM.PN.OB ---
Subjective Subjective Lochia minimal. Cramping controlled. No acute overnight events. Objective Data Objective Data Vital Signs: Vital Signs Temp Pulse Resp BP Pulse Ox O2 Del Method 97.6 F L 76 16 113/57 L 100 Room Air 08/26/22 07:46 08/26/22 07:46 08/26/22 07:46 08/26/22 07:46 08/26/22 02:15 08/26/22 07:46 Oxygen Delivery Method Room Air Weight: 78.6 kg Body Mass Index (BMI) 27.9 Intake & Output: Intake and Output for Last 24 Hours 08/24/22 08/25/22 08/26/22 23:59 23:59 23:59 Intake Total 1292.32 / 1292.32 1000 / 1000 Output Total 1200 / 1200 1501 / 1501 Balance 92.32 / 92.32 -501 / -501 Lab / Micro Data Result Diagrams: 08/25/22 04:35 Physical Exam Const alert, oriented x3 and no apparent distress HEENT normocephalic Head and Scalp: atraumatic Neck full ROM Resp normal respiratory effort Cardio regular rate GI normal to inspection, nondistended, normoactive bowel sounds GI Narrative: Uterus 2 cm below umbilicus Back/Spine normal ROM Extremity normal to inspection Extremity Narrative: Minimal pedal edema Neuro no focal motor deficits and no sensory deficits noted Psych mental status grossly normal and affect normal Assessment & Plan (1) Vaginal delivery: PLAN: day 2 status post . hemorrhage secondary to retained placental membranes. Lochia now minimal. Patient received Methergine and Cytotec. Iron supplement on home-going for acute blood loss anemia secondary to hemorrhage. Formula feeding. Desires home-going today. Discharge home. (2) Dental infection:
--- NOTE | 2022-08-26 08:30 | DCINST_ITS ---
Discharge Instructions Diet Discharge Diet: No restrictions Activity Discharge Activity: Return to Normal Activity and May Shower May resume sexual activity in: 4-6 weeks Weight Bearing Status: Weight bearing as tolerated Lifting Restrictions: No greater than 25 pounds Dressing / Incision Call your doctor if you observe: Fever of 101 or Higher, Change in Color, Inability to urinate, Using more than 1 pad per hour, Shortness of breath, Dizziness, Swelling in the ankles, Chest pain and Calf discomfort Follow Up Care Please Follow Up With: Tere Reaves DO When: 4- 6-week visit Test Results: Test results from this visit will be discussed in further detail at your follow- up appointment, if applicable. Discharge Plan Admission Admit Date/Time: 08/23/22 16:30 Primary Reason for Your Visit: Vaginal delivery Attending Provider: Tere Reaves Primary Care Provider: Loren Allen NP Discharge Orders/Prescriptions Prescriptions: New ferrous sulfate [FeroSul] 325 mg (65 mg iron) Tablet 325 mg PO DAILY 30 Days Qty: 30 1RF Continued acetaminophen 500 mg Capsule 1,000 mg PO Q6H PRN (Reason: Migraine Headache) PNV-DHA 27 mg iron-1 mg -300 mg capsule 1 cap PO DAILY clindamycin HCl 300 mg capsule 600 mg PO Q8H 7 Days Qty: 42 0RF Discontinued oxycodone 5 mg tablet 5 mg PO Q6H PRN (Reason: pain (scale score 7-10)) 2 Days Qty: 5 0RF Rx Instructions: tooth ache Referrals / Follow Up: Loren Allen NP, [employer] WORKER-C [Primary Care Provider] - Disposition Disposition (needs filled in before D/C Order can be placed): Home, Self Care
--- NOTE | 2022-08-27 18:09 | PCM.DC.SUM ---
Providers Date of Admission: 08/23/22 Primary Care Physician: Loren Allen, PRELIMINARY SCHOOL PSYCHOLOGIST-C Reason For Visit: VAG DELIVERY Diagnosis Discharge Diagnosis (1) Vaginal delivery: Status: Acute Code(s): O80 - Encounter for full-term uncomplicated delivery Plan: day 2 status post . hemorrhage secondary to retained placental membranes. Lochia now minimal. Patient received Methergine and Cytotec. Iron supplement on home-going for acute blood loss anemia secondary to hemorrhage. Formula feeding. Desires home-going today. Discharge home. (2) Dental infection: Status: Acute Code(s): K04.7 - Periapical abscess without sinus Medications at Discharge Home Medications acetaminophen 500 mg capsule 1,000 mg PO Q6H PRN Migraine Headache 09/07/21 multivitamin no.47-iron fum 27 mg-folate no.1 1 mg-dha 300 mg capsule (PNV-DHA) 1 cap PO DAILY Check with primary doctor 02/12/22 clindamycin HCl 300 mg capsule 600 mg PO Q8H 7 days #42 caps 06/20/22 ferrous sulfate 325 mg (65 mg iron) tablet (FeroSul) 325 mg PO DAILY 30 days #30 tabs 08/26/22 Hospital Course Summary of Care Provided Hospital Course: Patient admitted for induction of labor at term for tachycardia. Patient had vaginal delivery on 08/24/2022. Patient had hemorrhage secondary to retained placental membranes, removed without surgical intervention. Received Methergine and Cytotec. Stable for discharge day 2. Weight / BMI Weight Weight: 78.6 kg Body Mass Index (BMI) 27.9 ABG / Lab / Microbiology Data Result Diagrams: 08/25/22 04:35 D/C Instructions Discharge Diet: No restrictions May resume sexual activity in: 4-6 weeks Weight Bearing Status: Weight bearing as tolerated Call your doctor if you observe: Fever of 101 or Higher, Change in Color, Inability to urinate, Using more than 1 pad per hour, Shortness of breath, Dizziness, Swelling in the ankles, Chest pain and Calf discomfort Please Follow Up With: Tere Reaves DO When: 4- 6-week visit Meaningful Use Info Meaningful Use Diagnoses (Choose all that apply): None applicable Discharge Plan Admission Admit Date/Time: 08/23/22 16:30 Primary Reason for Your Visit: Vaginal delivery Attending Provider: Tere Reaves Primary Care Provider: Loren Allen NP Discharge Orders/Prescriptions Prescriptions: New ferrous sulfate [FeroSul] 325 mg (65 mg iron) Tablet 325 mg PO DAILY 30 Days Qty: 30 1RF Continued acetaminophen 500 mg Capsule 1,000 mg PO Q6H PRN (Reason: Migraine Headache) PNV-DHA 27 mg iron-1 mg -300 mg capsule 1 cap PO DAILY clindamycin HCl 300 mg capsule 600 mg PO Q8H 7 Days Qty: 42 0RF Discontinued oxycodone 5 mg tablet 5 mg PO Q6H PRN (Reason: pain (scale score 7-10)) 2 Days Qty: 5 0RF Rx Instructions: tooth ache Referrals / Follow Up: Loren Allen NP, PRELIMINARY SCHOOL PSYCHOLOGIST-C [Primary Care Provider] - Disposition Disposition (needs filled in before D/C Order can be placed): Home, Self Care
== END 2022-08-26 10:00 | disposition home or self-care (01) | DRG 560 ==
PROVIDERS: Admitting Provider Student in an Organized Health Care Education/Training Program; PCP Nurse Practitioner Family; Visit Provider Student in an Organized Health Care Education/Training Program
DX: O76 Abnormality in fetal heart rate and rhythm complicating labor and delivery (principal); Z37.0 Single live birth; D62 Acute posthemorrhagic anemia; O99.354 Diseases of the nervous system complicating childbirth; O72.1 Other immediate postpartum hemorrhage; O99.324 Drug use complicating childbirth; K04.7 Periapical abscess without sinus; G43.909 Migraine, unspecified, not intractable, without status migrainosus; F12.90 Cannabis use, unspecified, uncomplicated; O99.62 Diseases of the digestive system complicating childbirth; Z3A.40 40 weeks gestation of pregnancy; O90.81 Anemia of the puerperium; Z87.891 Personal history of nicotine dependence
CPT/HCPCS: 59025; 59050; 85025; 86850; 86900; 86901; 99218; J7120; A4216; G0378

== ENCOUNTER 2023-04-28 12:44 | Emergency (ER) | payer MEDICAID, SELFPAY ==
[2023-04-28 12:45] VITALS: BP 111/69; PULSE 84; RESP 16; TEMP 35.8; O2SAT 99; BMI 22.4
--- NOTE | 2023-04-28 13:04 | EDS_ITS ---
HPI History of Present Illness Chief Complaint: Dental Informant: patient Narrative Narrative: Right maxillary tooth ache that started yesterday spontaneously, this morning has some swelling in her right cheek. No systemic symptoms or fevers, no rhinorrhea, bleeding, foul taste or purulent discharge. [facility] Medical History Easy bruising Former smoker Low iron Marijuana use Migraine headache Vaginal delivery Home Medications acetaminophen 500 mg capsule 1,000 mg PO Q6H PRN Migraine Headache 09/07/21 [History Last Taken 08/23/22 20:00] multivitamin no.47-iron fum 27 mg-folate no.1 1 mg-dha 300 mg capsule (PNV-DHA) 1 cap PO DAILY Check with primary doctor 02/12/22 [History Last Taken 06/19/22 08:00] ferrous sulfate 325 mg (65 mg iron) tablet (FeroSul) 325 mg PO DAILY 30 days #30 tabs 08/26/22 [Rx Last Taken Unknown] ascorbic acid (vitamin C) 500 mg tablet (Vitamin C) 04/28/23 [History Last Taken Unknown] cholecalciferol (vitamin D3) 1,250 mcg (50,000 unit) capsule 04/28/23 [History Last Taken Unknown] clindamycin HCl 150 mg capsule 300 mg (2 x 150 mg) PO 4X/DAY #80 CAPSULES 04/28/23 [Rx Last Taken Unknown] Allergy/AdvReac Type Severity Reaction Status Date / Time amoxicillin [Amoxicillin] Allergy Rash Verified 08/23/22 20:12 Penicillins Allergy Rash Verified 08/23/22 20:12 Family History Other Family history of diabetes mellitus in maternal grandmother Family history of heart disease in maternal grandmother Family history of hypertension in grandmother Family history of hypertension in mother Family history of kidney disease in maternal grandmother Family history of migraine headaches Maternal family history of congestive heart failure Surgical History History of D&C Social History household members: spouse and children current occupational status: employed 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 Smoking Status: Former smoker ROS ROS ED Constitutional Constitutional ED: Denies chills or fever(s) Eyes Eyes: Denies change in vision or double vision ENT ENT ED: Reports dental pain; Denies sinus pain or throat swelling Cardiovascular Cardiovascular: Denies chest pain or palpitations Respiratory/Chest Respiratory/Chest: Denies cough or dyspnea Integumentary Denies abscess or rash Neurologic Neurologic: Denies headache(s), paresthesias or weakness EXAM Physical Exam Const Vital Signs: 04/28/23 12:45 Temperature 96.5 F L Temperature Source Temporal Pulse Rate 84 Respiratory Rate 16 Blood Pressure 111/69 Blood Pressure Mean 83 Pulse Ox 99 Oxygen Delivery Method Room Air Positive well nourished and well developed General Appearance ED: well developed and NAD HEENT HEENT Narrative: Mild right maxillary swelling without a palpable abscess or focal component. It is tender. No erythema to the face. Mild tenderness approximately tooth #4, 5 and 6 are also mildly tender. The teeth are normal-appearing. There is no obvious gingivitis or gingival hypertrophy, bleeding, or gingival abscess. No trismus. Intraoral exam otherwise normal. Face and Sinus: sinuses nontender Throat: posterior oropharynx normal Eyes PERRL and EOMs intact bilaterally Neck no lymphadenopathy and supple Resp normal respiratory effort Neuro oriented x3 and CN's II-XII intact bilaterally Sensorium / Orientation: alert Gait (Neuro): normal gait Psych mental status grossly normal and thought process normal Skin no rashes or lesions noted and no wounds MDM MDM MDM Narrative Medical decision making narrative: Patient looks well with normal vital signs, she was suggesting that her dentist office said she may need IV antibiotics, I see no indication for that clinically here. She is allergic to penicillin and amoxicillin so we will start her on clindamycin here, I do not think she needs anything else right now we discussed reasons to return otherwise follow-up with dentistry she is comfortable with that plan and also accepts a dose of ibuprofen here prior to discharge. Discharge Plan Triage Chief Complaint: Dental ED Provider: Abram Still Dx/Rx/DC Orders Clinical Impression: Dental infection Instructions: ED Dental Abscess Prescriptions: New clindamycin HCl 150 mg capsule 300 mg PO 4X/DAY Qty: 80 0RF No Action acetaminophen 500 mg Capsule 1,000 mg PO Q6H PRN (Reason: Migraine Headache) PNV-DHA 27 mg iron-1 mg -300 mg capsule 1 cap PO DAILY ferrous sulfate [FeroSul] 325 mg (65 mg iron) Tablet 325 mg PO DAILY 30 Days Qty: 30 1RF ascorbic acid (vitamin C) [Vitamin C] 500 mg tablet Patient Comments: take 1 tablet by mouth twice a day cholecalciferol (vitamin D3) 1,250 mcg (50,000 unit) capsule Patient Comments: take 1 capsule by mouth every week Primary Care Provider: Loren Allen NP Referrals: Loren Allen NP, [employer] INSTALLATION CREW MEMBER-C [Primary Care Provider] - Dentist,Your [STAFF PHYSICIAN] - As soon as possible Disposition Disposition: Home, Self Care
[2023-04-28] MEDS: Clindamycin HCl 150 MG Capsule 300 MG PO (13:24)
[2023-04-28] MEDS: Ibuprofen 600 MG Tablet PO (13:24)
== END 2023-04-28 13:25 | disposition home or self-care (01) ==
PROVIDERS: Emergency Provider Emergency Medicine; PCP Nurse Practitioner Family; Visit Provider Emergency Medicine
DX: B99.8 Other infectious disease (principal); Z87.891 Personal history of nicotine dependence
CPT/HCPCS: 99283

== ENCOUNTER 2023-05-02 10:30 | Emergency (ER) | payer MEDICAID, SELFPAY ==
[2023-05-02 10:31] VITALS: BP 119/60; PULSE 92; RESP 14; TEMP 36; O2SAT 78; BMI 22.8
--- NOTE | 2023-05-02 11:01 | ED.VIS.DENTA ---
HPI History of Present Illness Chief Complaint: Dental Informant: patient Associated Symptoms Assocated Symptom - Dental: face swelling; Negative for fever Narrative Narrative: Patient presents for repeat visit, she has been having dental pain since last week, she came here and saw me and we put her on clindamycin since she has a penicillin allergy, she has been taking it and the swelling in her right face and the pain have been gradually worsening. She denies any bleeding or foul taste in her mouth or systemic symptoms or fevers. Has not been able to see a dentist yet since it was just the weekend. [facility] Medical History Easy bruising Former smoker Low iron Marijuana use Migraine headache Vaginal delivery Home Medications acetaminophen 500 mg capsule 1,000 mg PO Q6H PRN Migraine Headache 09/07/21 [History Last Taken 08/23/22 20:00] multivitamin no.47-iron fum 27 mg-folate no.1 1 mg-dha 300 mg capsule (PNV-DHA) 1 cap PO DAILY Check with primary doctor 02/12/22 [History Last Taken 06/19/22 08:00] ferrous sulfate 325 mg (65 mg iron) tablet (FeroSul) 325 mg PO DAILY 30 days #30 tabs 08/26/22 [Rx Last Taken Unknown] ascorbic acid (vitamin C) 500 mg tablet (Vitamin C) 04/28/23 [History Last Taken Unknown] cholecalciferol (vitamin D3) 1,250 mcg (50,000 unit) capsule 04/28/23 [History Last Taken Unknown] clindamycin HCl 150 mg capsule 300 mg (2 x 150 mg) PO 4X/DAY #80 CAPSULES 04/28/23 [Rx Last Taken Unknown] tramadol 50 mg tablet 50 mg PO Q4H PRN PRN Pain 2 days #10 tabs 05/02/23 [Rx Last Taken Unknown] Allergy/AdvReac Type Severity Reaction Status Date / Time amoxicillin [Amoxicillin] Allergy Rash Verified 05/02/23 10:31 Penicillins Allergy Rash Verified 05/02/23 10:31 Family History Other Family history of diabetes mellitus in maternal grandmother Family history of heart disease in maternal grandmother Family history of hypertension in grandmother Family history of hypertension in mother Family history of kidney disease in maternal grandmother Family history of migraine headaches Maternal family history of congestive heart failure Surgical History History of D&C Social History household members: spouse and children current occupational status: employed 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 Smoking Status: Former smoker ROS ROS ED Constitutional Constitutional ED: Denies chills or fever(s) Eyes Eyes: Denies change in vision or double vision ENT ENT ED: Reports dental pain; Denies sinus pain or throat swelling Cardiovascular Cardiovascular: Denies chest pain or palpitations Respiratory/Chest Respiratory/Chest: Denies cough or dyspnea Integumentary Denies abscess or rash Neurologic Neurologic: Denies headache(s), paresthesias or weakness EXAM Physical Exam Const Vital Signs: 05/02/23 10:31 Temperature 96.8 F L Temperature Source Temporal Pulse Rate 92 Respiratory Rate 14 Blood Pressure 119/60 Blood Pressure Mean 79 Pulse Ox 78 Oxygen Delivery Method Room Air Positive well nourished and well developed General Appearance ED: well developed and NAD HEENT HEENT Narrative: Swelling mild right maxilla without erythema, inside the mouth there is clearly now a dental abscess external to the first molar that was not there before, very tender without spontaneous discharge or bleeding, gingiva are normal. Face and Sinus: sinuses nontender Throat: posterior oropharynx normal Eyes PERRL and EOMs intact bilaterally Neck no lymphadenopathy and supple Resp normal respiratory effort Neuro oriented x3 and CN's II-XII intact bilaterally Sensorium / Orientation: alert Gait (Neuro): normal gait Psych mental status grossly normal and thought process normal Skin no rashes or lesions noted and no wounds MDM MDM MDM Narrative Medical decision making narrative: Aspirated her abscess that developed despite being on clindamycin, see the procedure note. I would continue the clindamycin, it is at appropriate dosing and is an appropriate antibiotic, follow-up with dentistry, will prescribe tramadol to use as needed for pain and she understands and is comfortable with that plan. Procedures Other Procedures Procedure(s): Dental abscess aspiration: After mucosal topical prep with Cetacaine spray, used a number 18-gauge intraorally directed up toward the right maxilla and aspirated 2 cc of pus and a scant amount of blood. Tolerated well no complications, irrigated by herself afterwards with ice water. Discharge Plan Triage Chief Complaint: Dental ED Provider: Abram Still Dx/Rx/DC Orders Clinical Impression: Abscess, dental Instructions: ED Dental Abscess Prescriptions: New tramadol 50 mg tablet 50 mg PO Q4H PRN PRN (Reason: Pain) 2 Days Qty: 10 0RF No Action acetaminophen 500 mg Capsule 1,000 mg PO Q6H PRN (Reason: Migraine Headache) PNV-DHA 27 mg iron-1 mg -300 mg capsule 1 cap PO DAILY ferrous sulfate [FeroSul] 325 mg (65 mg iron) Tablet 325 mg PO DAILY 30 Days Qty: 30 1RF ascorbic acid (vitamin C) [Vitamin C] 500 mg tablet Patient Comments: take 1 tablet by mouth twice a day cholecalciferol (vitamin D3) 1,250 mcg (50,000 unit) capsule Patient Comments: take 1 capsule by mouth every week clindamycin HCl 150 mg capsule 300 mg PO 4X/DAY Qty: 80 0RF Primary Care Provider: Loren Allen NP Referrals: Loren Allen NP, BIOPSYCHOLOGIST-C [Primary Care Provider] - Dentist,Your [STAFF PHYSICIAN] - As soon as possible Disposition Disposition: Home, Self Care
[2023-05-02] MEDS: Tetracaine/Benzocaine/Butamben 1 APPLIC TOPICAL (11:40)
== END 2023-05-02 12:07 | disposition home or self-care (01) ==
LOC: ED 11:07
PROVIDERS: Emergency Provider Emergency Medicine; PCP Nurse Practitioner Family; Visit Provider Emergency Medicine
DX: K04.7 Periapical abscess without sinus (principal); Z87.891 Personal history of nicotine dependence
CPT/HCPCS: 41800; 64999; 99282

== ENCOUNTER → 2023-12-20 | Outpatient (CLI) | payer MEDICAID, SELFPAY ==
[2023-12-20 15:00] LABS: Absolute Lymphocyte Count 2.25 X10^3/uL (0.83-4.51); Absolute Neutrophil Count 4.4 X10^3/uL (2.0-7.7); Basophil# 0.04 X10^3/uL; Basophil% 0.6 % (0-1); Eosinophil# 0.09 X10^3/uL; Eosinophils% 1.2 % (0-5); Hematocrit 43.1 % (37-47); Hemoglobin 14.7 g/dL (12.0-15.0); Lymphocyte # 2.25 X10^3/ul (0.83-4.51); Lymphocyte % 31.2 % (19-41); Mean Corp Hgb Conc 34.1 g/dL (32-36); Mean Corpuscular Hgb 29.6 pg (27.0-32.0); Mean Corpuscular Volume 86.7 fL (81-99); Mean Platelet Vol. 8.9 fl (6.2-12.0); Monocyte# 0.43 X10^3/uL; NRBC Flagged by Analyzer 0 % (0-5); Neutrophil # 4.39 X10^3/uL (2.7-7.7); Neutrophil % 60.7 % (47-70); Platelet Count 289 K/mm3 (150-450); RBC Distribution Width CV 12.4 % (11.6-14.6); RBC Distribution Width SD 38.8 fl (35.1-43.9); Red Blood Count 4.97 M/mm3 (4.2-5.4); White Blood Count 7.2 K/mm3 (4.4-11.0)
[2023-12-20 16:12] LABS: Vitamin D,25 Hydroxy 93.9 ng/mL
[2023-12-20 16:17] LABS: Thyroid Stim Hormone (TSH) 1.28 uIU/mL (0.358-3.74)
== END | disposition home or self-care (01) ==
LOC: PAVLAB 14:50
PROVIDERS: PCP Nurse Practitioner Family; Referring Provider Nurse Practitioner Women's Health; Visit Provider Nurse Practitioner Women's Health
DX: Z13.29 Encounter for screening for other suspected endocrine disorder (principal); R53.83 Other fatigue
CPT/HCPCS: 36415; 82306; 84443; 85025

== ENCOUNTER → 2024-01-07 | Outpatient (CLI) | payer MEDICAID, SELFPAY ==
--- OUTSIDE RECORDS SUMMARY | 2024-01-07 10:27 | XMS RPT_ITS | CCD ---
Author Name Unknown Address [address] [place] [address] Organization [facility] Care Team Providers Care Correctional Sergeant Name Role Phone DALE YBARRA, SHANE Primary Care Physician LISA CAMEJO DO Attending Unavailable LORSON GRAINING MACHINE OPERATOR-SATELLITE DISH REPAIRER, SHANE Primary Care Unavail able LORSON GRAINING MACHINE OPERATOR-SATELLITE DISH REPAIRER, SHANE Attending Unavail able LORSON GRAINING MACHINE OPERATOR-SATELLITE DISH REPAIRER, SHANE Primary Care Unavail able LORSON GRAINING MACHINE OPERATOR-SATELLITE DISH REPAIRER, SHANE Attending Unavail able LORSON GRAINING MACHINE OPERATOR-SATELLITE DISH REPAIRER, SHANE Primary Care Unavail able Allergies Allergy Classification Reported Allergen(s) Allergy Type Date of Onset Reaction(s) Facility (4 sources) Amoxicillin; Translations: [amoxicillin] Drug Allergy [facility] (4 sources) Penicillin; Translations: [penicillin] Drug Allergy [facility] Medications Current Medications Medication Drug Class(es) Dates Sig (Normalized) Sig (Original) cholecalciferol 1.25 mg oral capsule (1 source) Vitamin D Start: 02-08-2023 cholecalciferol 1250 mcg (50,000 intl units) oral capsule Dose : 1,250 mcg = 1 cap(s), Oral, qWeek, # 12 cap(s), 3 Refill(s), Pharmacy: [facility] #[id number], 167.6, cm, 01/31/23 11:04:00 EDT, Height Start Date: 02/08/23 Status: Ordered ferrous sulfate 325 mg oral tablet (1 source) Start: 02-08-2023 IRON (ferrous sulfate 325 mg) 65 mg oral tablet Dose : 325 mg = 1 tab(s), Oral, BIDM, Take with food., # 60 tab(s), 3 Refill(s), [facility]: [facility] #[id number], 167.6, cm, 01/31/23 11:04:00 EDT, Height Start Date: 02/08/23 Status: Ordered Medical Marijuana (4 sources) Start: 02-10-2019 Medical Marijuana Medical Marijuana, 0 Refill(s) Start Date: 02/10/19 Status: Ordered Vitamin C 500 mg oral tablet (1 source) Start: 02-08-2023 Vitamin C 500 mg oral tablet Dose : 500 mg = 1 tab(s), Oral, BID, # 30 tab(s), 3 Refill(s), [facility]: [facility] #[id number], 167.6, cm, 01/31/23 11:04:00 EDT, Height Start Date: 02/08/23 Status: Ordered Problems Active Problems Problem Classification Problem Date Documented Da te Episodic/Chronic Deficiency and other anemia (1 source) Anemia 01-31-2023 Episodic Disorders of teeth and jaw (1 source) Infection of tooth 03-03-2023 Episodic Headache; including migraine (5 sources) Transformed migraine; Translations: [Chronic migraine without aura] Onset: 01-12-2022 04-07-2020 Chronic Headache; including migraine (1 source) Headache; Translations: [Headache] Onset: 09-24-2022 Episodic Malaise and fatigue (1 source) Fatigue 01-31-2023 Episodic Menstrual disorders (2 sources) Menorrhagia; Translations: [Missed period] 06-06-2023 Chronic Mood disorders (4 sources) Depressive disorder 08-22-2019 Chronic Nutritional deficiencies (3 sources) Vitamin D deficiency; Translations: [Vitamin D deficiency, unspecified] Onset: 06-06-2023 06-06-2023 Chronic Other non-traumatic joint disorders (1 source) Knee pain 01-31-2023 Episodic Other and delivery including normal (4 sources) 09-03-2021 Episodic Past or Other Problems Problem Classification Problem Date Documented Da te Episodic/Chronic Deficiency and other anemia (2 sources) Anemia, unspecified; Translations: [Anemia, unspecified] Onset: 06-06-2023 Episodic Results Test Name Value Interpretation Reference Range Facil ity Vital Signs Date Time Vital Sign Value Performing Clinician Facility 09-24-2022 13:54-0500 Body height 167.6 cm DANY ZENDEJAS MD [facility] 09-24-2022 13:54-0500 Body temperature 100.58 [degF] DANY ZENDEJAS MD [facility] 09-24-2022 13:54-0500 Body weight 70 kg DANY ZENDEJAS MD [facility] 09-24-2022 13:54-0500 Diastolic Blood Pressure Non-Invasive 70 1 DANY ZENDEJAS MD [facility] 09-24-2022 13:54-0500 Heart rate 88 /min DANY ZENDEJAS MD [facility] 09-24-2022 13:54-0500 Respiratory rate 20 /min DANY ZENDEJAS MD [facility] 09-24-2022 13:54-0500 Systolic Blood Pressure Non-Invasive 113 1 DANY ZENDEJAS MD [facility] 01-12-2022 15:00-0400 Diastolic blood pressure 62 mm[Hg] DANY ZENDEJAS MD [facility] 01-12-2022 15:00-0400 Heart rate 65 /min DANY ZENDEJAS MD [facility] 01-12-2022 15:00-0400 Mean blood pressure 77 mm[Hg] DANY ZENDEJAS MD [facility] 01-12-2022 15:00-0400 Systolic blood pressure 108 mm[Hg] DANY ZENDEJAS MD [facility] 01-12-2022 13:54-0400 Body temperature 97.7 [degF] DANY ZENDEJAS MD [facility] 01-12-2022 13:54-0400 Body weight 67.4 kg DANY ZENDEJAS MD [facility] 01-12-2022 13:54-0400 Diastolic blood pressure 60 mm[Hg] DANY ZENDEJAS MD [facility] 01-12-2022 13:54-0400 Heart rate 70 /min DANY ZENDEJAS MD [facility] 01-12-2022 13:54-0400 Mean blood pressure 75 mm[Hg] DANY ZENDEJAS MD [facility] 01-12-2022 13:54-0400 Respiratory rate 16 /min DANY ZENDEJAS MD [facility] 01-12-2022 13:54-0400 Systolic blood pressure 105 mm[Hg] DANY ZENDEJAS MD [facility] 09-03-2021 22:06-0500 Diastolic blood pressure 65 mm[Hg] MADELYN SANTOS MD [facility] 09-03-2021 22:06-0500 Heart rate 80 /min MADELYN SANTOS MD [facility] 09-03-2021 22:06-0500 Mean blood pressure 84 mm[Hg] MADELYN SANTOS MD [facility] 09-03-2021 22:06-0500 Respiratory rate 16 /min MADELYN SANTOS MD [facility] 09-03-2021 22:06-0500 Systolic blood pressure 122 mm[Hg] MADELYN SANTOS MD [facility] 09-03-2021 20:22-0500 Diastolic blood pressure 76 mm[Hg] MADELYN SANTOS MD [facility] 09-03-2021 20:22-0500 Heart rate 88 /min MADELYN SANTOS MD [facility] 09-03-2021 20:22-0500 Mean blood pressure 92 mm[Hg] MADELYN SANTOS MD [facility] 09-03-2021 20:22-0500 Respiratory rate 20 /min MADELYN SANTOS MD [facility] 09-03-2021 20:22-0500 Systolic blood pressure 124 mm[Hg] MADELYN SANTOS MD [facility] 09-03-2021 19:18-0500 Body temperature 98.24 [degF] MADELYN SANTOS MD [facility] 09-03-2021 19:18-0500 Body weight 74 kg MADELYN SANTOS MD [facility] 09-03-2021 19:18-0500 Diastolic blood pressure 76 mm[Hg] MADELYN SANTOS MD [facility] 09-03-2021 19:18-0500 Heart rate 84 /min MADELYN SANTOS MD [facility] 09-03-2021 19:18-0500 Respiratory rate 18 /min MADELYN SANTOS MD [facility] 09-03-2021 19:18-0500 Systolic blood pressure 121 mm[Hg] MADELYN SANTOS MD [facility] Encounters Encounter Date Encounter Type Care Provider Facility Start: 10-08-2023 End: 10-08-2023 Emergency department patient visit LISA CAMEJO DO Facility:B Start: 06-06-2023 End: 06-11-2023 ambulatory SHANE HUNTER GRAINING MACHINE OPERATOR-SATELLITE DISH REPAIRER Facility:B Start: 06-06-2023 End: 06-10-2023 Outreach Lab SHANE HUNTER GRAINING MACHINE OPERATOR-SATELLITE DISH REPAIRER [facility] Start: 02-07-2023 End: 02-08-2023 ambulatory SHANE HUNTER GRAINING MACHINE OPERATOR-SATELLITE DISH REPAIRER Facility:B Start: 09-24-2022 End: 09-24-2022 Emergency department patient visit DANY ZENDEJAS MD [facility] Start: 01-12-2022 End: 01-12-2022 Emergency department patient visit DANY ZENDEJAS MD [facility] Start: 09-03-2021 End: 09-03-2021 Emergency department patient visit MADELYN SANTOS MD [facility] Procedures Date Procedure Procedure Detail Performing Clinician None (qualifier value) MADELYN SANTOS MD Payers Date Payer Category Payer Unknown [id number] 1995 Unknown [id number] 1995 Unknown [id number] 1995 Unknown [id number] Social History Date Type Detail Facility Start: 04-07-2020 Ex-smoker (finding) [facility] Sex Assigned At Female [facility] Functional Status Date Assessment Result Facility 09-24-2022 Functional Status Independent [facility] Mental Status Date Assessment Result Facility 09-24-2022 Mental Status Orientation Oriented x 4 [facility] Discharge instructions 09-24-2022 Note Date & Type Note Facility 09-24-2022 Hospital Discharg e instructions Patient Education 09/24/2022 16:18:49 Headache, Unspecified Headache, Unspecified A number of things can cause headaches. The cause of your headache isn t clear. But it doesn t seem to be a sign of any serious illness. Headache affects almost everyone at some time. It is the most common reason people miss days from work or school. You could have a tension headache or a migraine headache. Stress can cause a tension headache. This can happen if you tense the muscles of your shoulders, neck, and scalp without knowing it. If this stress lasts long enough, you may develop a tension headache. It is not clear why migraines occur, but certain things called triggers can raise the risk of having a migraine attack. Migraine triggers may include emotional stress or depression, or by hormone changes during the menstrual cycle. Other triggers include control pills and other medicines, alcohol or caffeine, foods with tyramine (such as aged cheese, wine), eyestrain, weather changes, missed meals, and lack of sleep or oversleeping. Other causes of headache include: Viral illness with high fever Head injury with concussion Sinus, ear, or throat infection Dental pain and jaw joint (TMJ) pain More serious but less common causes of headache include stroke, brain hemorrhage, brain tumor, meningitis, and encephalitis. Home care Follow these tips when taking care of yourself at home: Don t drive yourself home if you were given pain medicine for your headache. Instead, have someone else drive you home. Try to sleep when you get home. You should feel much better when you wake up. Apply heat to the back of your neck to ease a neck muscle spasm. Take care of a migraine headache by putting an ice pack on your forehead or at the base of your skull. If you have nausea or vomiting, eat a light diet until your headache eases. If you have a migraine headache, use sunglasses when in the daylight or around bright indoor lighting until your symptoms get better. Bright glaring light can make this type of headache worse. Follow-up care Follow up with your healthcare provider, or as advised. Talk with your provider if you have frequent headaches. He or she can help figure out a treatment plan. By knowing the earliest signs of headache, and starting treatment right away, you may be able to stop the pain yourself. When to seek medical advice Call your healthcare provider right away if any of these occur: Your head pain suddenly gets worse after sexual intercourse or strenuous activity Your head pain doesn t get better within 24 hours You aren t able to keep liquids down (repeated vomiting) Fever of 100.4 F (38 C) or higher, or as directed by your healthcare provider Stiff neck Extreme drowsiness, confusion, or fainting Dizziness or dizziness with spinning sensation (vertigo) Weakness in an arm or leg or one side of your face You have trouble talking or seeing [id number] [employer]. [address] [place] [address]. All rights reserved. This information is not intended as a substitute for professional medical care. Always follow your healthcare professional's instructions. Follow Up Care 09/24/2022 13:48:19 With:Go to emergency room if symptoms worsen Address:Unknown When:2-4 days With:SHANE HUNTER APRN-SATELLITE DISH REPAIRER Address: [address] [place] [address] [address] [facility] [place] [address]- [phone] When:2-4 days [facility] 09-24-2022 Note Date & Type Note Facility 09-24-2022 Note Discharge Instructions Thank you for allowing [facility] to assist you with your healthcare needs. The following is important discharge information regarding your hospital visit. Diagnosis from Today's Visit Headache Headache What to Do Next Instructions from Your Care Team Follow up with your neurologist No qualifying data available. Post Acute Orders No qualifying data available. You Need to Schedule the Following Appointments Follow Up with Go to emergency room if symptoms worsen When Within 2-4 days Follow Up with SHANE HUNTER APRN-BRIDGETTE When Within 2-4 days Where: [address] [facility] [place] [address] [phone] Allergies amoxicillin penicillin Medications Please ask your primary doctor or pharmacist before taking any other medication not listed, including over the counter drugs, herbal medications, vitamins and or supplements as they may interact with your home medications. What When Instructions Last Dose Unchanged Misc Medication (Medical Marijuana) Please take this list to your next doctor s visit. Bring all medications you take, including over the counter medications, herbals and other supplements with you to your doctor s visit. Patients and families are reminded to discard old lists and to update any records with all medication providers or retail pharmacies. Education Materials Headache, Unspecified A number of things can cause headaches. The cause of your headache isn t clear. But it doesn t seem to be a sign of any serious illness. Headache affects almost everyone at some time. It is the most common reason people miss days from work or school. You could have a tension headache or a migraine headache. Stress can cause a tension headache. This can happen if you tense the muscles of your shoulders, neck, and scalp without knowing it. If this stress lasts long enough, you may develop a tension headache. It is not clear why migraines occur, but certain things called triggers can raise the risk of having a migraine attack. Migraine triggers may include emotional stress or depression, or by hormone changes during the menstrual cycle. Other triggers include control pills and other medicines, alcohol or caffeine, foods with tyramine (such as aged cheese, wine), eyestrain, weather changes, missed meals, and lack of sleep or oversleeping. Other causes of headache include: Viral illness with high fever Head injury with concussion Sinus, ear, or throat infection Dental pain and jaw joint (TMJ) pain More serious but less common causes of headache include stroke, brain hemorrhage, brain tumor, meningitis, and encephalitis. Home care Follow these tips when taking care of yourself at home: Don t drive yourself home if you were given pain medicine for your headache. Instead, have someone else drive you home. Try to sleep when you get home. You should feel much better when you wake up. Apply heat to the back of your neck to ease a neck muscle spasm. Take care of a migraine headache by putting an ice pack on your forehead or at the base of your skull. If you have nausea or vomiting, eat a light diet until your headache eases. If you have a migraine headache, use sunglasses when in the daylight or around bright indoor lighting until your symptoms get better. Bright glaring light can make this type of headache worse. Follow-up care Follow up with your healthcare provider, or as advised. Talk with your provider if you have frequent headaches. He or she can help figure out a treatment plan. By knowing the earliest signs of headache, and starting treatment right away, you may be able to stop the pain yourself. When to seek medical advice Call your healthcare provider right away if any of these occur: Your head pain suddenly gets worse after sexual intercourse or strenuous activity Your head pain doesn t get better within 24 hours You aren t able to keep liquids down (repeated vomiting) Fever of 100.4 F (38 C) or higher, or as directed by your healthcare provider Stiff neck Extreme drowsiness, confusion, or fainting Dizziness or dizziness with spinning sensation (vertigo) Weakness in an arm or leg or one side of your face You have trouble talking or seeing [id number] [employer]. [address] [place] [address], [place] [address]. All rights reserved. This information is not intended as a substitute for professional medical care. Always follow your healthcare professional's instructions. Additional Information VACCINATE! IT SAVES LIVES! Members of the community who have not yet received the COVID-19 vaccine and would like to receive it can visit one of [facility] vaccine clinics. There are many vaccine clinic locations within the [facility]. For locations and available times, please visit [email or web address]. It is important to note that some COVID mobile vaccine clinics are held outdoors and may be canceled in rainy or stormy conditions. To learn more about pediatric vaccinations (ages 5-11), we invite you to visit the [facility] webpage. [email or web address]/pages/[email or web address]-Xtlsp-Rpoxadnawre-Frequently-[email or web address] -Questions.html To learn more about the COVID-19 vaccine, we invite you to visit the [facility] website for a list of frequently asked questions. [email or web address]/assets/[email or web address] [email or web address]_[email or web address] [email or web address]-Questions.[email or web address] [facility] Access Instructions: Stay connected with your healthcare team and access your personal medical information anytime with the [facility] Patient Portal. If you would like a full copy of your medical records please contact the [facility] Medical Records Department Tuesday through Tuesday between 8a.m. and 4:30p.m. Please follow the directions below to access the portal: 1.Access the email account you provided upon registration to the hospital.2.Look for an invitation email from [facility].3.Open the email and access the invitation link: Accept Invitation to [facility]4.Fill in the required dodson to create your account. Sign into www.[employer] with your username and password that you created in the above steps to stay up to date. You can then view a summary of results, a summary of your visits, and the ability to download your summaries to your computer or send the information securely to a physician. Remember that your healthcare information is confidential, so carefully consider who you will allow to register on the [facility] Patient Portal for access to your information. You can also access the [facility] Patient Portal on the [employer]. Simply click on Health Records under Health Data and then click on the [employer] logo. HOW TO SAFELY DISPOSE OF PRESCRIPTION MEDICATIONS Please use one of the following methods to safely dispose of your unused medications. 1.Use a drug disposal kit: the drug disposal pouch allows you to safely discard your old and unused drugs. Ask your nurse to give you one when you are discharged.2.Visit a local take-back location: Many local pharmacies and police departments have programs that collect old and unwanted prescription drugs. Call your local pharmacy or go to http://[employer]nerchip/5I8Aa7s to find one close to you.3.Make use of household items: Use cat litter or old coffee grounds to dispose medications if other options are not available. Mix your drugs with these household products, seal them in an airtight container and throw it into the garbage. Call [facility]: [phone] to be sure your drugs can be disposed of in this way. Some medicines may require a different approach.4.Never flush your medications down the toilet. IF YOU HAVE BEEN PRESCRIBED AN OPIOIDS FOR PAIN If you have been prescribed an opioid (such as hydrocodone, oxycodone or morphine), it is critical to understand the possible side effects and risks of opioid pain medications. Even when taken as directed, opioids can have several side effects including: Tolerance, meaning you might need to take more of a medication for the same pain relief. Nausea, vomiting and/or constipation. Sleepiness, dizziness, dry mouth, confusion, depression or itching. Physical dependence, meaning you have withdrawal symptoms when a medication is stopped ? this can develop within a few days. KNOW YOUR RESPONSIBILITIES It is important to know exactly how much and how often to take the opioid pain medications you are prescribed. Never take opioids in higher amounts or more often than prescribed. Do not combine opioids with alcohol or other drugs that cause drowsiness, such as benzodiazepines, also known as benzos, including diazepam and alprazolam, muscle relaxants or sleep aids. Never sell or share prescription opioids. This is illegal. Store opioids in a secure place and out of reach of others (including children, family, friends and visitors). The last page(s) of this document has been signed and retained as a CHART COPY Signatures Patient Education Materials Headache, Unspecified Medication Leaflets My discharge plan and instructions have been reviewed and explained to me and ILEILA ERIKA B understand my current condition and have read and understand these discharge instructions. I have received a written copy of the plan/instructions. If I have questions, I am aware that I should contact my doctor. Patient/Safety Engineer Pressure Vessels Signature: _ Date/Time: Relationship to Patient: Witness Name/Signature: Date/Time: [facility] Discharge instructions 01-12-2022 Note Date & Type Note Facility 01-12-2022 Hospital Discharg e instructions Patient Education 01/12/2022 15:56:54 HEADACHE, Migraine (Classical) Migraine Headache Migraine headaches are caused by changes in blood flow to the brain. This causes throbbing or constant pain on one or both sides of your head. The pain may last from a few hours to several days. You usually will have nausea, vomiting, sensitivity to light and sound, and blurred vision. A migraine may be triggered by emotional stress or depression, or by hormone changes during the menstrual cycle. Other triggers include control pills, overuse of migraine medicines, alcohol or caffeine, foods with tyramine, eye strain, weather changes, missed meals, or too little or too much sleep. Home care Follow these tips when taking care of yourself at home: Don t drive yourself home if you were given pain medicine for your headache. Instead, have someone else drive you home. Try to sleep when you get home. You should feel much better when you wake up. Cold can help ease migraine symptoms. Put an ice pack on your forehead or at the base of your skull. Put heat on the back of your neck to help ease any neck spasm. Drink only clear liquids or eat a light diet until your symptoms get better. This will help you avoid nausea and vomiting. How to prevent migraines Pay attention to what seems to trigger your headache. Try to avoid the triggers when you can. If you have frequent headaches, consider keeping a headache diary. In it, write down what you were doing, feeling, or eating in the hours before each headache. Show this to your health care provider to help find the cause of your headaches. If stress seems to be a trigger for your headaches, figure out what is causing stress in your life. Learn new ways to handle your stress. Ideas include regular exercise, biofeedback, self-hypnosis, and meditation. Talk with your health care provider to find out more information about managing stress. Many books and digital media are also available on this subject. Tyramine is a substance found in many foods. It can trigger a migraine in some people. These foods contain tyramine: Chocolate Yogurt All cheeses but cottage cheese and cream cheese Smoked or pickled fish and meat, including villanueva, caviar, bologna, pepperoni, and salami Liver Avocados Bananas Figs Raisins Red wine Try staying away from these foods for 1 to 2 months to see if you have fewer headaches. How to treat future headaches Take time out at the first sign of a headache, if possible. Find a quiet, dark, comfortable place to sit or lie down. Let yourself relax or sleep. Put an ice pack on your forehead or on the area of greatest pain. A heating pad and massage may help if you are having a muscle spasm and tightness in your neck. If you have been prescribed a medicine to stop a migraine headache, use this at the first warning sign of the headache for best results. First signs may be an aura or pain. If you need to take medicine often for your migraine, talk with your health care provider about other ways to prevent your headaches. Follow-up care Follow up with your health care provider if your headache doesn t get better within the next 24 hours. Talk with your provider if you have frequent headaches. He or she can figure out a treatment plan. Ask if you can have medicine to take at home the next time you get a bad headache. This may keep you from having to visit the emergency department in the future. You may need to see a headache specialist (neurologist) if you continue to have headaches. When to seek medical advice Call your health care provider right away if any of these occur: Your head pain gets worse, or doesn t get better within 24 hours You can t keep liquids down (repeated vomiting) Pain in your sinuses, ears, or throat Fever of 100.4 F (38 C) or higher, or as directed by your health care provider Stiff neck Extreme drowsiness, confusion, or fainting Dizziness, or dizziness with spinning sensation (vertigo) Weakness in an arm or leg, or on one side of your face Difficulty talking or seeing [id number] [employer]. [address] [place] [address], [place] [address]. All rights reserved. This information is not intended as a substitute for professional medical care. Always follow your healthcare professional's instructions. 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 Because of this, your healthcare provider will talk with you about the most appropriate treatment for you. If you re in good health and early in the , your body may expel all the tissue on its own. If your body doesn t expel all the tissue, your healthcare provider may recommend treatment to prevent infection and severe bleeding (hemorrhaging). What happens during miscarriage Some miscarriages happen without any signs or symptoms. Most miscarriages, however, start with bleeding and cramping, which may increase over time. The cramps may get very strong. This is normal when a miscarriage is happening. Cramping widens the passage (cervix) that tissue from the uterus must pass through to leave your body. Your healthcare provider may ask you for a sample of the tissue for lab testing. This is to make sure that the cells being shed from your body are normal. Diagnosis To confirm the miscarriage, your healthcare provider will do a pelvic exam. Your healthcare provider might order a blood test to measure the levels of a hormone (hCG). He or she may also have you get an ultrasound test to find out if all of the tissue has passed from the uterus. If a miscarriage happens very early in the , an ultrasound is not needed. Treatment If any tissue remains in the uterus, your healthcare provider may suggest the following measures depending on your particular situation: Medicine. This is prescribed for you to take at home. The medicine causes the uterus to expel any remaining tissue. Take the medicine exactly as directed. Dilation and curettage (D & C). This procedure is done in your healthcare provider s office or at the hospital. You are given medicine to prevent pain or to allow you to relax or sleep during the procedure. The healthcare provider uses instruments to widen the cervix (dilate). Tissue and blood that line the uterus are then removed (curettage). Be sure you talk to your healthcare provider about the risks and benefits of these treatments. If you have Rh-negative blood If your blood is Rh negative, you may need treatment with Rho(D) immune globulin. This injection prevents substances in your blood from attacking the baby s blood during a future . Your healthcare provider can tell you more. Follow-up care Keep all follow-up appointments. These are needed to make sure that you are healing well. During these visits, mention if you re feeling very sad or depressed. Your healthcare provider can suggest counseling or other resources to help you. When to seek medical care Contact your healthcare provider if you have any of the following: Severe pain in the stomach, pelvis, or low back Vaginal discharge that has a bad odor Bleeding that soaks a new sanitary pad each hour Fever of 100.4 F (38 C) or higher, or as directed by your healthcare provider [id number] [employer]. [address] [place] [address]. All rights reserved. This information is not intended as a substitute for professional medical care. Always follow your healthcare professional's instructions. 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 Address: When:2-4 days [facility] Evaluation + Plan note Note Date & Type Note Facility Evaluation + Plan note No data available for this section [facility] Hospital Discharge instructions Note Date & Type Note Facility Hospital Discharge instructions No data available for this section [facility] Progress note Note Date & Type Note Facility Progress note No data available for this section [facility] Summary Purpose Family History No Family History Records Found No data available for this section No Family History Records Found Advance Directives No Advanced Directives Records FoundNo Advanced Directives Records Found Additional Source Comments INFORMATION SOURCE (unrecogn ized section and content) DATE CREATED AUTHOR AUTHOR'S GENI ATION 10/14/2023 [facility] ([place]) Care Team (unrecognized sect ion and content) Care Team Personnel Name: SHANE HUNTER Position: P4 Advanced Practice Nurse Member Role: Primary Care Physician Address: Address: [address] Name: Glenis Conde RN Position: AO RN Member Role: RN Name: SARAH BETH LEON DO Position: AH Resident Member Role: ED Physician Address: Address: [address] [place] [address] [place] [address]- Care Team Related Persons Name: ARIEL DEE Address: Home [address] [place] [phone] [place] Name: TRISTON DEE Patient Care team informatio n (unrecognized section and content) Care Team Personnel Name: SHANE HUNTER Position: P4 Advanced [employer] B[employer] Developer Member Role: Primary Care Physician Address: Address: [address] [facility] [address] Care Team Related Persons Name: ARIEL DEE Address: Home [address] [place], [place] [id number] [place] Name: TRISTON DEE FOR RECORDS PERTAINING TO PATIENTS WHO ARE OR HAVE BEEN ENROLLED IN A CHEMICAL DEPENDENCY/SUBSTANCEABUSE PROGRAM, SOME INFORMATION MAY BE OMITTED. This clinical summary was aggregated from multiple sources. Caution should be exercised in using it in the provision of clinical care. This summary normalizes information from multiple sources, and as a consequence, information in this document may materially change the coding, format and clinical context of patient data. In addition, data may be omitted in some cases. CLINICAL DECISIONS SHOULD BE BASED ON THE PRIMARY CLINICAL RECORDS. [facility] [employer] provides no warranty or guarantee of the accuracy or completeness of information in this document.
--- NOTE | 2024-01-07 10:28 | US_ITS ---
EXAM: US PELVIS TRANSABDOMINAL, COMPLETE CLINICAL INDICATION: bleeding, pain TECHNIQUE: Transabdominal pelvic ultrasound was performed with grayscale and color Doppler imaging. COMPARISON: No relevant prior studies available. FINDINGS: UTERUS/CERVIX: The uterus measures 9.5 x 6.0 x 4.0 cm. The uterus is retroflexed. Endometrium measures 1.1 cm. There is no uterine mass. RIGHT OVARY: The right ovary measures 3.1 x 1.9 x 1.7 cm. Blood flow is present in the right ovary. LEFT OVARY: The left ovary measures 4.2 x 1.9 x 2.8 cm. There is a 2.5 x 1.7 x 2.1 cm cyst in the left ovary. Blood flow is present in the left ovary. FREE FLUID: None. BLADDER: Bladder measures 8.2 x 8.8 x 9.8 cm for volume of 369 mL. US/Transvaginal Non- IMPRESSION: Left ovarian cyst. No other abnormalities are identified. Electronically Signed: Tk Johnson MD at 0:04 EDT ,
== END | disposition home or self-care (01) ==
LOC: US 10:25
PROVIDERS: PCP Nurse Practitioner Family; Referring Provider Nurse Practitioner Women's Health; Visit Provider Nurse Practitioner Women's Health
DX: N92.0 Excessive and frequent menstruation with regular cycle (principal); R10.2 Pelvic and perineal pain
CPT/HCPCS: 76830; 76856

== ENCOUNTER 2024-06-06 03:02 | Emergency (ER) | payer MEDICAID, SELFPAY ==
[2024-06-06 03:03] VITALS: BP 131/80; PULSE 76; RESP 16; TEMP 36.8; O2SAT 96; BMI 21.9
--- NOTE | 2024-06-06 03:31 | EDS_ITS ---
HPI History of Present Illness Chief Complaint: Dental Informant: patient Narrative Narrative: Patient is a 28-year-old female with past medical history of anxiety and depression. She states that she has been having pain in the left upper jaw region. She denies any recent trauma or difficulty breathing or swallowing. She states she is currently on clindamycin and was put on this with concern for dental infection. She states she has been taking it without any type of symptom improvement. She also reports she has had right ear discomfort and has been trying steroids and also admits to taking her 's muscle relaxers to see if this would help control the pain. She states there is been no improvement and therefore comes in for evaluation PFSH PFS Medical History Anemia Dental caries Depression Anxiety Vaginal delivery Marijuana use Low iron Easy bruising Migraine headache Former smoker Home Medications ?Medication ?Instructions ?Recorded ?Last Taken ?Type acetaminophen 500 mg capsule 1,000 mg PO Q6H PRN Migraine 09/07/21 08/23/22 20:00 History Headache multivitamin no.47-iron fum 27 1 cap PO DAILY Check with primary 02/12/22 06/19/22 08:00 History mg-folate no.1 1 mg-dha 300 mg doctor capsule (PNV-DHA) ferrous sulfate 325 mg (65 mg 325 mg PO DAILY 30 days #30 tabs 08/26/22 Unknown Rx iron) tablet (FeroSul) ascorbic acid (vitamin C) 500 mg 500 mg PO BID 04/28/23 Unknown History tablet (Vitamin C) cholecalciferol (vitamin D3) 1,250 1,250 mcg PO QWEEK 04/28/23 Unknown History mcg (50,000 unit) capsule clindamycin HCl 300 mg capsule 300 mg PO 4X/DAY 06/06/24 Unknown History fluoxetine 40 mg capsule 40 mg PO DAILY 06/06/24 Unknown History hydroxyzine HCl 25 mg tablet 25 - 50 mg PO QHS PRN PRN sleep 06/06/24 Unknown History oxycodone-acetaminophen 5 mg-325 1 tab PO Q6H PRN pain 3 days #12 06/06/24 Unknown Rx mg tablet (Percocet) tabs prednisone 10 mg tablet See Rx Instructions PO .COMPLEX 06/06/24 Unknown History progesterone micronized 100 mg 100 mg PO QPM 06/06/24 Unknown History capsule Allergy/AdvReac Type Severity Reaction Status Date / Time amoxicillin (Amoxicillin) Allergy Rash Verified 06/06/24 13:27 Penicillins Allergy Rash Verified 06/06/24 13:27 Family History Other Family history of diabetes mellitus in maternal grandmother Family history of heart disease in maternal grandmother Family history of hypertension in grandmother Family history of hypertension in mother Family history of kidney disease in maternal grandmother Family history of migraine headaches Maternal family history of congestive heart failure Surgical History History of D&C Social History household members: spouse and children current occupational status: employed 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 Smoking Status: Current every day smoker tobacco type: e-cigarettes substance use type: marijuana seatbelt use: always do you feel safe at home: Yes additional social history: - [employer] ROS ROS ED Constitutional Constitutional ED: Denies chills or fever(s) Eyes Eyes: Denies blurry vision or change in vision ENT ENT ED: Reports ear pain right and other Details: Positive jaw/dental pain ; Denies sore throat Cardiovascular Cardiovascular: Denies chest pain Respiratory/Chest Respiratory/Chest: Denies cough or dyspnea Gastrointestinal Gastrointestinal: Denies abdominal pain, diarrhea, nausea or vomiting Genitourinary Genitourinary ED: Denies dysuria Musculoskeletal Musculoskeletal: Denies neck pain Integumentary Denies rash Neurologic Neurologic: Denies headache(s) Psychiatric Psychiatric: Reports anxiety Hematologic/Lymphatic Hematologic/Lymphatic: Denies easy bleeding or easy bruising Allergic/Immunologic Allergic/Immunologic ED: Denies mouth swelling or tongue swelling EXAM Physical Exam Const Vital Signs: 06/06/24 03:03 06/06/24 03:03 Temperature 98.3 F Temperature Source Oral Pulse Rate 76 Respiratory Rate 16 Respiratory Effort Normal Respiratory Pattern Normal Blood Pressure 131/80 H Blood Pressure Mean 97 Pulse Ox 96 Oxygen Delivery Method Room Air Positive well nourished and well developed General Appearance ED: well developed; Negative for pallor HEENT Reports moist mucous membranes HEENT Narrative: No tongue or lip swelling no oral lesions no airway edema or compromise. No obvious dental abscess noted Patient does have TMJ changes in the right jaw and there is pain to palpation at the site. There is no pain with palpation of either mastoid region. No signs of malignant otitis externa. The right tympanic membrane is retracted but otherwise shows no findings concerning for infection. Eyes PERRL and EOMs intact bilaterally Neck supple Neck Narrative: No nuchal rigidity or meningeal signs Resp normal respiratory effort and clear to auscultation bilaterally Cardio regular rate and regular rhythm Extremity normal to inspection Neuro oriented x3, CN's II-XII intact bilaterally and no sensory deficits noted Sensorium / Orientation: alert Motor Exam: strength 5/5 throughout Psych Mood & Affect: anxious Skin no rashes or lesions noted and no wounds General Skin Exam: Negative for jaundice or pallor MDM MDM MDM Narrative Medical decision making narrative: Patient presented to the ER with stable vitals and reported pain in the right jaw region without trauma. She does not have pain with palpation of the mastoid region going against mastoiditis. There is no obvious dental abscess noted therefore there is no need for incision and drainage or CT scan of the face. Patient has no findings concerning for malignant otitis externa and physical exam also does not suggest otitis media. At this time I feel the patient's recurrent pain is related to eustachian tube dysfunction as well as TMJ dysfunction. However these do not need to be addressed emergently and she can follow-up with ENT and/or dentistry for further treatment. As she has been already been taking steroids and muscle relaxers antibiotics I felt the only course of action at this time was help reduce her pain by placing her on a short round of narcotic. However as I have low concern for infectious process such as dental abscess malignant otitis externa or mastoiditis she is otherwise safe for discharge History & Record Review Discussion w/independent historian: Patient Discharge Plan Triage Chief Complaint: Dental Other Complaint: Other, Pain/Inj ED Provider: Pool Randle Dx/Rx/DC Orders Clinical Impression: Acute dysfunction of right eustachian tube, TMJ (temporomandibular joint syndrome) Instructions: Common Middle Ear Problems, ED TMJ Syndrome Prescriptions: New oxycodone-acetaminophen [Percocet] 5-325 mg tablet 1 tab PO Q6H PRN (Reason: pain) 3 Days Qty: 12 0RF No Action acetaminophen 500 mg Capsule 1,000 mg PO Q6H PRN (Reason: Migraine Headache) PNV-DHA 27 mg iron-1 mg -300 mg capsule 1 cap PO DAILY ferrous sulfate [FeroSul] 325 mg (65 mg iron) Tablet 325 mg PO DAILY 30 Days Qty: 30 1RF ascorbic acid (vitamin C) [Vitamin C] 500 mg tablet 500 mg PO BID Patient Comments: take 1 tablet by mouth twice a day cholecalciferol (vitamin D3) 1,250 mcg (50,000 unit) capsule 1,250 mcg PO QWEEK Patient Comments: take 1 capsule by mouth every week fluoxetine 40 mg capsule 40 mg PO DAILY clindamycin HCl 300 mg capsule 300 mg PO 4X/DAY hydroxyzine HCl 25 mg tablet 25 - 50 mg PO QHS PRN PRN (Reason: sleep) prednisone 10 mg tablet See Rx Instructions PO .COMPLEX Rx Instructions: orally; TAKE 6 TABLETS BY MOUTH DAILY FOR 2 DAYS, 5 (FIVE) DAILY X2, FOUR DAILY X2, 3 (THREE) DAILY X2, 2 (TWO) DAILY X2, 1 DAILY X2, THEN ONE-HALF DAILY X2 progesterone micronized 100 mg capsule 100 mg PO QPM Primary Care Provider: Loren Allen NP Referrals: Loren Allen NP, [facility] [Primary Care Provider] - Activity Restrictions/Additional Instructions: Please discuss with your family doctor referral to ENT as your history and exam indicate you have eustachian tube dysfunction and TMJ syndrome. Please continue the clindamycin and steroid in order to help prevent any secondary infection and reduce pressure within the ear. Return to the ER should you have any further concerns Print Language: Gambian Disposition Disposition: Home, Self Care Discharge Date/Time: 06/06/24 03:39
[2024-06-06] MEDS: oxyCODONE 5 MG Tablet 10 MG PO (03:38)
== END 2024-06-06 03:39 | disposition home or self-care (01) ==
PROVIDERS: Emergency Provider Emergency Medicine; PCP Nurse Practitioner Family; Visit Provider Emergency Medicine
DX: H69.91 Unspecified Eustachian tube disorder, right ear (principal); F17.290 Nicotine dependence, other tobacco product, uncomplicated; M26.609 Unspecified temporomandibular joint disorder, unspecified side; F12.90 Cannabis use, unspecified, uncomplicated; Z79.899 Other long term (current) drug therapy; R51.9 Headache, unspecified; D64.9 Anemia, unspecified
CPT/HCPCS: 99282; 99283

== ENCOUNTER 2024-06-06 13:26 | Emergency (ER) | payer MEDICAID, SELFPAY ==
[2024-06-06 13:27] VITALS: BP 127/79; PULSE 87; RESP 16; TEMP 36.2; O2SAT 100; BMI 21.7
--- NOTE | 2024-06-06 14:05 | EDS_ITS ---
HPI History of Present Illness Chief Complaint: Dental Detail of Chief Complaint: Right-sided facial pain. Informant: patient Onset/Context/Timing Onset: Weeks Context: Gradual Onset Timing: Intermittent Current Severity: Mild Maximum Severity: Mild Relieved by: NSAIDs Associated Symptoms Assocated Symptom - Dental: Negative for fever, jaw swelling, face swelling, cold sensitivity or hot sensitivity Narrative Narrative: 28-year-old female with chronic right sided facial pain. She has an ENT appointment to be seen tomorrow. She was actually seen in the emergency department earlier this morning around 330 was prescribed at that time Percocet for severe pain. She is already seen her dentist recently has had on clindamycin for at least 5 days. She denies any fall injury or trauma. She does have a history of PTSD. Also migraine headaches. Prior similar symptoms: Yes Recent Illness/Hospitalization: No PFSH PFSH Medical History Anemia Dental caries Depression Anxiety Vaginal delivery Marijuana use Low iron Easy bruising Migraine headache Former smoker Home Medications ?Medication ?Instructions ?Recorded ?Last Taken ?Type acetaminophen 500 mg capsule 1,000 mg PO Q6H PRN Migraine 09/07/21 08/23/22 20:00 History Headache multivitamin no.47-iron fum 27 1 cap PO DAILY Check with primary 02/12/22 06/19/22 08:00 History mg-folate no.1 1 mg-dha 300 mg doctor capsule (PNV-DHA) ferrous sulfate 325 mg (65 mg 325 mg PO DAILY 30 days #30 tabs 08/26/22 Unknown Rx iron) tablet (FeroSul) ascorbic acid (vitamin C) 500 mg 500 mg PO BID 04/28/23 Unknown History tablet (Vitamin C) cholecalciferol (vitamin D3) 1,250 1,250 mcg PO QWEEK 04/28/23 Unknown History mcg (50,000 unit) capsule clindamycin HCl 300 mg capsule 300 mg PO 4X/DAY 06/06/24 Unknown History fluoxetine 40 mg capsule 40 mg PO DAILY 06/06/24 Unknown History hydroxyzine HCl 25 mg tablet 25 - 50 mg PO QHS PRN PRN sleep 06/06/24 Unknown History oxycodone-acetaminophen 5 mg-325 1 tab PO Q6H PRN pain 3 days #12 06/06/24 Unknown Rx mg tablet (Percocet) tabs prednisone 10 mg tablet See Rx Instructions PO .COMPLEX 08/14/24 Unknown History progesterone micronized 100 mg 100 mg PO QPM 06/06/24 Unknown History capsule Allergy/AdvReac Type Severity Reaction Status Date / Time amoxicillin (Amoxicillin) Allergy Rash Verified 06/06/24 13:27 Penicillins Allergy Rash Verified 06/06/24 13:27 Family History Other Family history of diabetes mellitus in maternal grandmother Family history of heart disease in maternal grandmother Family history of hypertension in grandmother Family history of hypertension in mother Family history of kidney disease in maternal grandmother Family history of migraine headaches Maternal family history of congestive heart failure Surgical History History of D&C Social History household members: spouse and children current occupational status: employed 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 Constitutional Constitutional ED: Denies fever(s) Eyes Eyes: Denies blurry vision ENT ENT ED: Denies ear pain, rhinorrhea or sore throat Cardiovascular Cardiovascular: Denies chest pain Respiratory/Chest Respiratory/Chest: Denies cough Gastrointestinal Gastrointestinal: Denies abdominal pain Genitourinary Genitourinary ED: Denies dysuria Musculoskeletal Musculoskeletal: Denies arthralgias Integumentary Denies abscess Neurologic Neurologic: Denies headache(s) Psychiatric Psychiatric: Denies anxiety Endocrine Endocrinology: Denies cold intolerance Hematologic/Lymphatic Hematologic/Lymphatic: Denies easy bleeding Allergic/Immunologic Allergic/Immunologic ED: Denies mouth swelling EXAM Physical Exam Narrative Exam Narrative: Well-appearing 28-year-old female. Vital signs stable afebrile. H EENT exam moist mucous membranes. No facial swelling or trauma. She can open and close her jaw without any difficulty. No popping or clicking. No swelling to her face or jaw. TMs and canals are normal. No otitis media. No wax. No fluid behind the eardrum. There is no reproducible pain along her jaw or face or dentition currently her dentition is in pretty good shape. There are a few decayed and missing teeth. There is no gingival swelling or abscess. She has no trouble at all opening and closing her mouth. No trouble swallowing or breathing. Neck nontender. No lymphadenopathy. Lungs clear to auscultation bilaterally. Heart regular rhythm no murmur. Abdomen soft nontender. Moving all 4 extremities. Neurologic exam normal. Const Vital Signs: 06/06/24 13:27 Temperature 97.1 F L Temperature Source Temporal Pulse Rate 87 Respiratory Rate 16 Blood Pressure 127/79 H Blood Pressure Mean 95 Pulse Ox 100 Positive well nourished and well developed; Negative for obese, cachectic, contractures or unkempt General Appearance ED: well developed and NAD; Negative for unkempt, cachectic, contractures or pallor Nutritional Appearance: Negative for cachectic or obese HEENT Denies other Negative for trauma, tenderness or other Face and Sinus: Negative for sinuses nontender Mouth ED: Yes oral and palatal mucosa normal, Yes lips normal, Yes tongue normal, Yes salivary gland normal, No mouth trauma and No salivary gland abnormal Mouth: oral and palatal mucosa normal, lips normal, tongue normal, salivary gland normal, No mouth trauma and No salivary gland abnormal Teeth and Gingiva: Negative for abnormal tooth and associated gingiva Throat: posterior oropharynx normal Eyes PERRL and EOMs intact bilaterally General Eye ED: Negative for pale conjunctiva or scleral icterus Neck no lymphadenopathy, supple and no JVD General: Negative for normal visual inspection, anterior neck swelling, tenderness or submandibular swelling Lymph Lymphatic: no lymphadenopathy noted Chest Wall inspection of chest normal and palpation of chest normal Resp normal respiratory effort, no retractions and clear to auscultation bilaterally Cardio regular rate, regular rhythm, S1 normal heart sound, S2 normal heart sound and no murmurs Jugular Venous Distention: Negative for other Rhythm: Negative for abnormal rhythm GI normal to inspection, nondistended, normoactive bowel sounds, non-tender, non- distended and no masses Back/Spine no CVA tenderness General Back: Negative for CVA tenderness Cervical Spine: Negative for other Thoracic Spine / Upper Back: Negative for thoracic spinal tenderness, paraspinal muscle tenderness or paraspinal muscle spasm Extremity normal to inspection and no joint enlargement General Extremety ED: Negative for edema General Extremity: Negative for edema Neuro oriented x3, CN's II-XII intact bilaterally, moves all extremities and no focal motor deficits Sensorium / Orientation: alert, oriented to person, oriented to place and oriented to time; Negative for orientation impaired Motor Exam: strength 5/5 throughout; Negative for general weakness, strength abnormal or muscle tone abnormal Psych mental status grossly normal Appearance: Negative for unkempt Attitude: No agitated and No other Mood & Affect: Negative for depressed, anxious or tearful Skin no rashes or lesions noted and no wounds General Skin Exam: Negative for pallor MDM MDM MDM Narrative Medical decision making narrative: 28-year-old female chronic right-sided facial pain. Exam is benign. I do not think this is dental. I do not think of TMJ. She does not have otitis media. There is no swollen lymphadenopathy. She can use Motrin and she already has Percocet for pain. Her dentist already has her on antibiotics. She has an appointment to see ENT tomorrow. Explained inflation I believe she is having pain I do not have a specific source and she can follow-up she is comfortable with that plan. History & Record Review Discussion w/independent historian: Patient Additional record(s) reviewed:: Prior inpatient record, Prior outpatient record, Prior ED visit and Prior labs Discharge Plan Triage Chief Complaint: Dental ED Provider: Bo Echavarria Dx/Rx/DC Orders Clinical Impression: Pain Instructions: ED Chronic Pain Prescriptions: No Action acetaminophen 500 mg Capsule 1,000 mg PO Q6H PRN (Reason: Migraine Headache) PNV-DHA 27 mg iron-1 mg -300 mg capsule 1 cap PO DAILY ferrous sulfate [FeroSul] 325 mg (65 mg iron) Tablet 325 mg PO DAILY 30 Days Qty: 30 1RF ascorbic acid (vitamin C) [Vitamin C] 500 mg tablet 500 mg PO BID Patient Comments: take 1 tablet by mouth twice a day cholecalciferol (vitamin D3) 1,250 mcg (50,000 unit) capsule 1,250 mcg PO QWEEK Patient Comments: take 1 capsule by mouth every week fluoxetine 40 mg capsule 40 mg PO DAILY clindamycin HCl 300 mg capsule 300 mg PO 4X/DAY hydroxyzine HCl 25 mg tablet 25 - 50 mg PO QHS PRN PRN (Reason: sleep) prednisone 10 mg tablet See Rx Instructions PO .COMPLEX Rx Instructions: orally; TAKE 6 TABLETS BY MOUTH DAILY FOR 2 DAYS, 5 (FIVE) DAILY X2, FOUR DAILY X2, 3 (THREE) DAILY X2, 2 (TWO) DAILY X2, 1 DAILY X2, THEN ONE-HALF DAILY X2 progesterone micronized 100 mg capsule 100 mg PO QPM oxycodone-acetaminophen [Percocet] 5-325 mg tablet 1 tab PO Q6H PRN (Reason: pain) 3 Days Qty: 12 0RF Primary Care Provider: Loren Allen NP Referrals: Loren Allen NP, [facility] [Primary Care Provider] - As Needed Activity Restrictions/Additional Instructions: Your exam is unremarkable. There is no signs of a dental infection. There is no signs of TMJ. Follow-up with your ENT appointment. Motrin for pain. Percocet for more severe pain but the prescription you received earlier today. Print Language: [place] Island[place] Disposition Disposition: Home, Self Care
== END 2024-06-06 14:16 | disposition home or self-care (01) ==
LOC: ED 14:11
PROVIDERS: Emergency Provider Emergency Medicine; PCP Nurse Practitioner Family; Visit Provider Emergency Medicine
DX: R51.9 Headache, unspecified (principal); F17.200 Nicotine dependence, unspecified, uncomplicated; D64.9 Anemia, unspecified
CPT/HCPCS: 99282

== ENCOUNTER 2024-07-13 00:38 | Emergency (ER) | payer MEDICAID, SELFPAY ==
[2024-07-13 00:38] VITALS: BP 119/67; PULSE 62; RESP 18; TEMP 36.7; O2SAT 98; BMI 21.3
[2024-07-13 00:42] VITALS: BP 119/67; PULSE 62; RESP 16; TEMP 36.7; O2SAT 98
--- NOTE | 2024-07-13 01:55 | EX.ED.DYSGE1 ---
HPI History of Present Illness Chief Complaint: Dental Informant: patient Narrative Narrative: Patient is a 28-year-old female with past medical history of migraine headache depression and dental caries. She has been seen in the ER secondary to right sided jaw/dental pain. She states she cannot get into see a dentist for multiple weeks. She has been to the ER as well as other facilities secondary to the recurrent pain. She states she was recently at an outside facility where she had a CT scan performed secondary to her symptoms with no obvious cause. She states that despite taking multiple rounds of antibiotics there is been no improvement and as the pain has persisted she presents for evaluation [facility] Medical History Anemia Dental caries Depression Anxiety Vaginal delivery Marijuana use Low iron Easy bruising Migraine headache Former smoker Home Medications ?Medication ?Instructions ?Recorded ?Last Taken ?Type acetaminophen 500 mg capsule 1,000 mg PO Q6H PRN Migraine 09/07/21 08/23/22 20:00 History Headache multivitamin no.47-iron fum 27 1 cap PO DAILY Check with primary 02/12/22 06/19/22 08:00 History mg-folate no.1 1 mg-dha 300 mg doctor capsule (PNV-DHA) ferrous sulfate 325 mg (65 mg 325 mg PO DAILY 30 days #30 tabs 08/26/22 Unknown Rx iron) tablet (FeroSul) ascorbic acid (vitamin C) 500 mg 500 mg PO BID 04/28/23 Unknown History tablet (Vitamin C) cholecalciferol (vitamin D3) 1,250 1,250 mcg PO QWEEK 04/28/23 Unknown History mcg (50,000 unit) capsule fluoxetine 40 mg capsule 40 mg PO DAILY 06/06/24 Unknown History hydroxyzine HCl 25 mg tablet 25 - 50 mg PO QHS PRN PRN sleep 06/06/24 Unknown History oxycodone-acetaminophen 5 mg-325 1 tab PO Q6H PRN pain 3 days #12 06/06/24 Unknown Rx mg tablet (Percocet) tabs progesterone micronized 100 mg 100 mg PO QPM 06/06/24 Unknown History capsule carbamazepine 200 mg tablet 200 mg PO TID 14 days #42 tabs 07/13/24 Unknown Rx (Tegretol) gabapentin 300 mg capsule 300 mg PO QPM 07/13/24 Unknown History meloxicam 15 mg tablet 15 mg PO DAILY 07/13/24 Unknown History Allergy/AdvReac Type Severity Reaction Status Date / Time amoxicillin (Amoxicillin) Allergy Rash Verified 07/13/24 00:39 Penicillins Allergy Rash Verified 07/13/24 00:39 Family History Other Family history of diabetes mellitus in maternal grandmother Family history of heart disease in maternal grandmother Family history of hypertension in grandmother Family history of hypertension in mother Family history of kidney disease in maternal grandmother Family history of migraine headaches Maternal family history of congestive heart failure Surgical History History of D&C Social History household members: spouse and children current occupational status: employed 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 Smoking Status: Current every day smoker tobacco type: e-cigarettes substance use type: marijuana seatbelt use: always do you feel safe at home: Yes additional social history: - [employer] ROS ROS ED Constitutional Constitutional ED: Denies chills or fever(s) Eyes Eyes: Denies blurry vision or change in vision ENT ENT ED: Reports other Details: Positive jaw/dental pain ; Denies sore throat Cardiovascular Cardiovascular: Denies chest pain Respiratory/Chest Respiratory/Chest: Denies cough or dyspnea Gastrointestinal Gastrointestinal: Denies abdominal pain, diarrhea, nausea or vomiting Genitourinary Genitourinary ED: Denies dysuria Musculoskeletal Musculoskeletal: Denies myalgias or neck pain Integumentary Denies rash Neurologic Neurologic: Denies headache(s), paresthesias or weakness Hematologic/Lymphatic Hematologic/Lymphatic: Denies easy bleeding or easy bruising Allergic/Immunologic Allergic/Immunologic ED: Denies mouth swelling or tongue swelling EXAM Physical Exam Const Vital Signs: 07/13/24 00:38 07/13/24 00:42 Temperature 98.1 F 98.1 F Temperature Source Oral Oral Pulse Rate 62 62 Respiratory Rate 18 16 Blood Pressure 119/67 119/67 Blood Pressure Mean 84 84 Pulse Ox 98 98 Oxygen Delivery Method Room Air Room Air Positive well nourished and well developed General Appearance ED: well developed; Negative for pallor HEENT Reports TM's clear and moist mucous membranes HEENT Narrative: Normocephalic atraumatic Patient does have dental caries without obvious dental infection/abscess No tongue or lip swelling no oral lesions no airway edema or compromise No signs of ANUG No pain or swelling in the mastoid region to suggest acute mastoiditis Bilateral TMs are normal Tympanic Membrane ED: Yes TM's clear Eyes PERRL and EOMs intact bilaterally General Eye ED: Negative for scleral icterus Neck supple Neck Narrative: No brawny edema in the submental space to suggest Deepak's angina Resp normal respiratory effort and clear to auscultation bilaterally Cardio regular rate and regular rhythm Extremity normal to inspection Neuro oriented x3, CN's II-XII intact bilaterally and no sensory deficits noted Sensorium / Orientation: alert Motor Exam: strength 5/5 throughout Psych mental status grossly normal Skin no rashes or lesions noted and no wounds General Skin Exam: Negative for jaundice or pallor MDM MDM MDM Narrative Medical decision making narrative: Patient presented to ER with recurrent right sided dental/facial pain despite multiple rounds of antibiotics and multiple evaluations in the ER. Vital signs are stable. She has no signs of ANUG or peritonsillar abscess and no brawny edema in the submental space to suggest Deepak's angina. She was recently seen at an outside facility and the CTA of the head/face was reviewed and shows no signs of bony destruction derangement to the TMJ infectious process or stenosis or occlusion. With the fact that she has been on recurrent antibiotics without improvement in the pain seems to be recurrent along the trigeminal nerve this very well could be trigeminal neuralgia. The patient will be referred to neurology to discuss this further diagnosis and should be started on carbamazepine to see if this helps control symptoms but at this time as she has had a recent imaging study which was normal stable vitals and she has no signs of infection there is no need for workup and he is otherwise safe for discharge History & Record Review Discussion w/independent historian: Patient Discharge Plan Triage Chief Complaint: Dental ED Provider: Pool Randle Dx/Rx/DC Orders Clinical Impression: Facial pain, Migraines, Dental caries Instructions: ED Trigeminal Neuralgia Prescriptions: New carbamazepine [Tegretol] 200 mg tablet 200 mg PO TID 14 Days Qty: 42 0RF No Action acetaminophen 500 mg Capsule 1,000 mg PO Q6H PRN (Reason: Migraine Headache) PNV-DHA 27 mg iron-1 mg -300 mg capsule 1 cap PO DAILY ferrous sulfate [FeroSul] 325 mg (65 mg iron) Tablet 325 mg PO DAILY 30 Days Qty: 30 1RF ascorbic acid (vitamin C) [Vitamin C] 500 mg tablet 500 mg PO BID Patient Comments: take 1 tablet by mouth twice a day cholecalciferol (vitamin D3) 1,250 mcg (50,000 unit) capsule 1,250 mcg PO QWEEK Patient Comments: take 1 capsule by mouth every week fluoxetine 40 mg capsule 40 mg PO DAILY hydroxyzine HCl 25 mg tablet 25 - 50 mg PO QHS PRN PRN (Reason: sleep) progesterone micronized 100 mg capsule 100 mg PO QPM oxycodone-acetaminophen [Percocet] 5-325 mg tablet 1 tab PO Q6H PRN (Reason: pain) 3 Days Qty: 12 0RF meloxicam 15 mg tablet 15 mg PO DAILY gabapentin 300 mg capsule 300 mg PO QPM Primary Care Provider: Loren Allen NP Referrals: Jona Ramirez MD [Non-Staff -Ordering Privileges] - Loren Allen NP, [facility] [Primary Care Provider] - Activity Restrictions/Additional Instructions: Please follow-up with neurology as your recurrent pain may be related to trigeminal neuralgia and tried taking the Tegretol to help with this. Return to the ER should you have any further concerns Print Language: Georgian Disposition Disposition: Home, Self Care Discharge Date/Time: 07/13/24 02:11
[2024-07-13] MEDS: oxyCODONE 5 MG Tablet 10 MG PO (02:08)
[2024-07-13 02:10] VITALS: BP 119/55; PULSE 60; RESP 16; TEMP 36.6; O2SAT 99
== END 2024-07-13 02:11 | disposition home or self-care (01) ==
PROVIDERS: Emergency Provider Emergency Medicine; PCP Nurse Practitioner Family; Visit Provider Emergency Medicine
DX: K02.9 Dental caries, unspecified (principal); F17.200 Nicotine dependence, unspecified, uncomplicated; G43.909 Migraine, unspecified, not intractable, without status migrainosus; D64.9 Anemia, unspecified
CPT/HCPCS: 99282

== ENCOUNTER → 2024-08-20 | Outpatient (CLI) | payer MEDICAID, SELFPAY ==
[2024-08-20 15:42] LABS: Absolute Lymphocyte Count 1.57 X10^3/uL (0.83-4.51); Absolute Neutrophil Count 3.5 X10^3/uL (2.0-7.7); Basophil# 0.03 X10^3/uL; Basophil% 0.5 % (0-1); Eosinophil# 0.08 X10^3/uL; Eosinophils% 1.4 % (0-5); Hematocrit 37.3 % (37-47); Hemoglobin 12.6 g/dL (12.0-15.0); Lymphocyte # 1.57 X10^3/ul (0.83-4.51); Lymphocyte % 27.5 % (19-41); Mean Corp Hgb Conc 33.8 g/dL (32-36); Mean Corpuscular Hgb 30.4 pg (27.0-32.0); Mean Corpuscular Volume 90.1 fL (81-99); Mean Platelet Vol. 9.1 fl (6.2-12.0); Monocyte# 0.46 X10^3/uL; Monocyte% 8.1 % (0-10); NRBC Flagged by Analyzer 0 % (0-5); Neutrophil # 3.54 X10^3/uL (2.7-7.7); Platelet Count 312 K/mm3 (150-450); RBC Distribution Width CV 12.5 % (11.6-14.6); Red Blood Count 4.14 M/mm3 (4.2-5.4); White Blood Count 5.7 K/mm3 (4.4-11.0)
[2024-08-20 15:58] LABS: ALB/GLOB Ratio 1.2 RATIO (0.9-2.4); AST(SGOT) 14 U/L (15-37); Alanine Aminotransfer ALT/SGPT 31 U/L (13-56); Albumin, Serum 4.1 g/dL (3.2-5.0); Alkaline Phosphatase 48 U/L (45-117); Anion Gap 7 (5-15); BUN 9 mg/dL (7-18); BUN/Creat Ratio 13.8 RATIO (10-20); Chloride 106 mmol/L (98-107); Creatinine, Serum 0.65 mg/dL (0.55-1.02); EST Glomerular Filtration Rate 113 mL/min (>60); Est Glom Filt Rate - Afr Amer 137 mL/min (>60); Globulin 3.5 g/dL (2.2-4.2); Glucose 97 mg/dL (74-106); Magnesium 2.1 mg/dL (1.6-2.6); Protein, Total 7.6 g/dL (6.4-8.2); Sodium Level 139 mmol/L (136-145)
--- OUTSIDE RECORDS SUMMARY | 2024-08-20 17:47 | XMS RPT_ITS | CCD ---
Author Organization [facility] Care Team Providers Care Candy Polisher Name Role Phone DALE MAIL LIST PROCESSOR-LINUX UNIX SYSTEM ADMINISTRATOR, SHANE Primary Care Physician LISA CAMEJO DO Attending Unavailable LORSON MAIL LIST PROCESSOR-LINUX UNIX SYSTEM ADMINISTRATOR, [place] Primary Care Unavail able TATYANA MENDEZ MD Attending Unavailable LORSON MAIL LIST PROCESSOR-LINUX UNIX SYSTEM ADMINISTRATOR, [place] Primary Care Unavail able RAHEEM MAIL LIST PROCESSOR-LINUX UNIX SYSTEM ADMINISTRATOR, CHELO Attending Unavai lable LORSON MAIL LIST PROCESSOR-LINUX UNIX SYSTEM ADMINISTRATOR, [place] Primary Care Unavail able LOU MAIL LIST PROCESSOR-CNValerio, KAYDEN Laura Attending Reina vailable LORSON MAIL LIST PROCESSOR-LINUX UNIX SYSTEM ADMINISTRATOR, [place] Primary Care Unavail able LOU MAIL LIST PROCESSOR-CNValerio, KAYDEN Laura Attending Reina vailable LORSON MAIL LIST PROCESSOR-LINUX UNIX SYSTEM ADMINISTRATOR, [place] Primary Care Unavail able RAHEEM MAIL LIST PROCESSOR-LINUX UNIX SYSTEM ADMINISTRATOR, CHELO Attending Unavai lable LORSON MAIL LIST PROCESSOR-LINUX UNIX SYSTEM ADMINISTRATOR, [facility] Unavail able LORSON MAIL LIST PROCESSOR-LINUX UNIX SYSTEM ADMINISTRATOR, [place] Primary Care Physician MONA VORA DO Attending Unavailab le LORSON MAIL LIST PROCESSOR-LINUX UNIX SYSTEM ADMINISTRATOR, [place] Primary Care Unavail able LORSON MAIL LIST PROCESSOR-LINUX UNIX SYSTEM ADMINISTRATOR, [place] Primary [facility] Unavail able LORSON MAIL LIST PROCESSOR-LINUX UNIX SYSTEM ADMINISTRATOR, SHANE Attending Unavail able MONA VORA DO Attending Unavailab le LORSON MAIL LIST PROCESSOR-LINUX UNIX SYSTEM ADMINISTRATOR, [place] Primary Care Unavail able Allergies Allergy Classification Reported Allergen(s) Allergy Type Date of Onset Reaction(s) Facility Penicillins (antibiotic) (2 sources) Amoxicillin; Translations: [amoxicillin] Drug Allergy [facility] (7 sources) Amoxicillin; Translations: [amoxicillin] Drug Allergy [facility] (7 sources) Penicillin; Translations: [penicillin] Drug Allergy rash [facility] Medications Current Medications Medication Drug Class(es) Dates Sig (Normalized) Sig (Original) cholecalciferol 1.25 mg oral capsule (3 sources) Vitamin D Start: 07-13-2023 cholecalciferol 1250 mcg (50,000 intl units) oral capsule Dose : 1,250 mcg = 1 cap(s), Oral, qWeek, # 12 cap(s), 3 Refill(s), [facility]: [facility] #[id number], 167.6, cm, 06/06/23 10:37:00 EDT, Height, kg, 06/06/23 10:29:00 EDT, Dosing Weight Start Date: 07/13/23 Status: Ordered Start: 02-08-2023 cholecalcifero l 1250 mcg (50,000 intl units) oral capsule Dose : 1,250 mcg = 1 cap(s), Oral, qWeek, # 12 cap(s), 3 Refill(s), [facility]: [facility] #[id number], 167.6, cm, 01/31/23 11:04:00 EDT, Height Start Date: 02/08/23 Status: Ordered ferrous sulfate 325 mg oral tablet (3 sources) Start: 07-25-2023 IRON (ferrous sulfate 325 mg) 65 mg oral tablet Dose : 325 mg = 1 tab(s), Oral, BIDM, Take with food., # 60 tab(s), 11 Refill(s), [facility]: [facility] #[id number], 167.6, cm, 07/25/23 10:31:00 EDT, Height, kg, 07/25/23 10:31:00 EDT, Dosing Weight Start Date: 07/25/23 Status: Ordered Start: 02-08-2023 IRON (ferrous sulfate 325 mg) 65 mg oral tablet Dose : 325 mg = 1 tab(s), Oral, BIDM, Take with food., # 60 tab(s), 3 Refill(s), [facility]: [facility] #[id number], 167.6, cm, 01/31/23 11:04:00 EDT, Height Start Date: 02/08/23 Status: Ordered FLUoxetine 40 mg oral capsule (2 sources) Serotonin Reuptake Inhibitor Start: 05-30-2024 take 1 capsule by mouth once daily FLUoxetine 40 mg oral capsule take 1 capsule by mouth once daily Start Date: 05/30/24 Status: Ordered Medical Marijuana (8 sources) Start: 02-10-2019 Medical Jina roger Medical Marijuana, 0 Refill(s) Start Date: 02/10/19 Status: Ordered [employer] Women's Daily Multivitamin (2 sources) Start: 10-05-2023 [employer] Women's Daily Multivitamin 1, Oral, qDay, gummie chew before swallowing, 0 Refill(s) Start Date: 10/05/23 Status: Ordered Vitamin C 500 mg oral tablet (3 sources) Start: 07-25-2023 Vitamin C 500 mg oral tablet Dose : 500 mg = 1 tab(s), Oral, BID, # 30 tab(s), 11 Refill(s), [facility]: [facility] #[id number], 167.6, cm, 07/25/23 10:31:00 EDT, Height, kg, 07/25/23 10:31:00 EDT, Dosing Weight Start Date: 07/25/23 Status: Ordered Start: 02-08-2023 Vitamin C 500 mg oral tablet Dose : 500 mg = 1 tab(s), Oral, BID, # 30 tab(s), 3 Refill(s), Pharmacy: [facility] #[id number], 167.6, cm, 01/31/23 11:04:00 EDT, Height Start Date: 02/08/23 Status: Ordered Completed/Discontinued Medications Medication Drug Class(es) Dates Sig (Normalized) Sig (Original) sertraline 25 mg oral tablet (2 sources) Serotonin Reuptake Inhibitor Start: 12-19-2023 End: 12-26-2023 sertraline 25 mg oral tablet Dose : 25 mg = 1 tab(s), Oral, qDay, # 7 tab(s), 0 Refill(s), Pharmacy: [facility] #[id number], 167.6, cm, 12/19/23 11:37:00 EST, Height, kg, 12/19/23 11:37:00 EST, Dosing Weight Start Date: 12/19/23 Stop Date: 12/26/23 Status: Ordered Problems Problem Classification Problem Date Documented Da te Episodic/Chronic Deficiency and other anemia (5 sources) Anemia 01-31-2023 Episodic Disorders of teeth and jaw (9 sources) Infection of tooth; Translations: [Jaw pain] 03-03-2023 Episodic Headache; including migraine (9 sources) Transformed migraine; Translations: [Chronic migraine without aura] Onset: 01-12-2022 04-07-2020 Chronic Headache; including migraine (7 sources) Headache; Translations: [Headache] Onset: 09-24-2022 Episodic Malaise and fatigue (6 sources) Fatigue; Translations: [Malaise] 01-31-2023 Episodic Menstrual disorders (10 sources) Menorrhagia; Translations: [Missed period] 06-06-2023 Chronic Mood disorders (8 sources) Depressive disorder 08-22-2019 Chronic Nutritional deficiencies (5 sources) Vitamin D deficiency 06-06-2023 Chronic Other endocrine disorders (1 source) Disorder of endocrine ovary; 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 Status documented as Yes on Admission Other skin disorders (5 sources) Mass of wrist 01-31-2023 Episodic Personality disorders (4 sources) Borderline personality disorder 11-15-2023 Chronic Substance-related disorders (4 sources) Marijuana user 11-15-2023 Episodic Thyroid disorders (1 source) Hypothyroidism; Translations: [Other specified hypothyroidism] Chronic Results Test Name Value Interpretation Reference Range Facility MRI BRAIN W/ + W/O CONTRASTo n 08-14-2024 MRI BRAIN W/ + W/O CONTRAST ORIGINAL EXAMINATION: MR Brain with intravenous contrast TECHNIQUE: Multiplanar multi sequential MRI of the brain with special attention to the trigeminal nerves without and with intravenous contrast per standard protocol. COMPARISON: CT head 06/14/2024 HISTORY: ORDERING SYSTEM PROVIDED HISTORY: Reason for Exam: RIGHT FACIAL PAIN FINDINGS: Parenchyma: No acute hemorrhage, acute subacute ischemic infarct, mass effect or midline shift. The gordon-white matter junctions are maintained. There are no space occupying intra-axial masses or extra-axial fluid collections . No pathologic signal is identified in the white matter. No evidence remote hemorrhagic blood products. The intra-axial, pre ganglionic, interdural, and postganglionic segments of the bilateral trigeminal nerves are symmetric and unremarkable appearing. Ventricles: No ventricular enlargement or ventricular effacement. Orbits: Normal. Major intracranial flow voids: Preserved. Paranasal sinuses: Clear. Mastoids and middle ears: Clear. Bones: Normal. Extracranial soft tissues: Normal. Additional comment: Normal. IMPRESSION: Unremarkable MRI brain with and without contrast. Interpreted by: Donavon Pollack MD Preliminary Report By: Donavon Pollack MD Electronically signed By Donavon Pollack MD Dictated Date: 08/14/2024 9:38:31 AM Prelim Date: 08/14/2024 9:48:34 AM Sign Date: 08/14/2024 9:48:34 AM Ordering Provider: SHANE HUNTER [facility] CT HEAD OR BRAIN W/ CONTRAST on 06-14-2024 CT HEAD OR BRAIN W/ CONTRAST ORIGINAL EXAMINATION: CT OF THE HEAD WITH CONTRAST 06/14/2024 6:28 pm TECHNIQUE: CT of the head/brain was performed with the administration of intravenous contrast. Multiplanar reformatted images are provided for review. Automated exposure control, iterative reconstruction, and/or weight based adjustment of the mA/kV was utilized to reduce the radiation dose to as low as reasonably achievable. COMPARISON: None. HISTORY: ORDERING SYSTEM PROVIDED HISTORY: Reason for Exam: Rt TMJ syndrome. Hearing changes, dizziness pt states having RT sided head pain and jaw pain x1 week. N/V+ FINDINGS: BRAIN/VENTRICLES: There is no acute intracranial hemorrhage, mass effect or midline shift. No abnormal extra-axial fluid collection. The gordon-white differentiation is maintained without evidence of an acute infarct. There is no evidence of hydrocephalus. ORBITS: The visualized portion of the orbits demonstrate no acute abnormality. SINUSES: The visualized paranasal sinuses and mastoid air cells demonstrate no acute abnormality. SOFT TISSUES/SKULL: No acute abnormality of the visualized skull or soft tissues. Bilateral TMJ joint spaces and articular surfaces are preserved and in gross anatomic alignment. IMPRESSION: No acute intracranial abnormality. Interpreted by: Jones Viera Preliminary Report By: Jones Viera Electronically signed By Jones Viera Dictated Date: 06/14/2024 9:08:03 PM Prelim Date: 06/14/2024 9:15:00 PM Sign Date: 06/14/2024 9:15:00 PM Ordering Provider: CHELO MACIEL [facility] ([place] .GFRon 06-07-2024 GFR 98 ml/min/1.73sqm [facility] Comment on above: Result Comment: GFR Population mean for , Non- Americans Ages 20-29 = 116 mL/min/1.73 sq.m. Ages 30-39 = 107 mL/min/1.73 sq.m. Ages 40-49 = 99 mL/min/1.73 sq.m. Ages 50-59 = 93 mL/min/1.73 sq.m. Ages 60-69 = 85 mL/min/1.73 sq.m. Ages 70+ = 75 mL/min/1.73 sq.m. Chronic Kidney Disease: Less than 60 mL/min/1.73 square meters End Stage Renal Disease: Less than 15 mL/min/1.73 square meters Performed By: #### Mery FIGUEROA, STEVE #### [place] [address] [address] GFR Non- 81 ml/min/1.73sqm [facility] ([place] Comment on above: Result Comment: GFR Population mean for , Non- Americans Ages 20-29 = 116 mL/min/1.73 sq.m. Ages 30-39 = 107 mL/min/1.73 sq.m. Ages 40-49 = 99 mL/min/1.73 sq.m. Ages 50-59 = 93 mL/min/1.73 sq.m. Ages 60-69 = 85 mL/min/1.73 sq.m. Ages 70+ = 75 mL/min/1.73 sq.m. Chronic Kidney Disease: Less than 60 mL/min/1.73 square meters End Stage Renal Disease: Less than 15 mL/min/1.73 square meters Performed By: #### Mery FIGUEROA, CMP #### [place] [address] [address] CMPon 06-07-2024 Albumin Level 4.3 G/dL Normal 3.5-5.0 Pending sale to [facility] ([place]) Comment on above: Performed By: #### Mery FIGUEROA, CMP #### [address] [address] Albumin/Globulin [Mass ratio] 1.3 {ratio} Normal 1.1-2.5 [facility] Comment on above: Performed By: #### G , CMP #### [address] [address] ALP [Catalytic activity/Vol] 40 U/L Normal 40-135 [facility] ([place] Comment on above: Performed By: #### G , CMP #### [address] [address] ALT [Catalytic activity/Vol] 26 U/L Normal 14-59 [facility] ([place] Comment on above: Performed By: #### Mery FIGUEROA, CMP #### [address] [address] AST [Catalytic activity/Vol] 11 U/L Normal 10-40 [facility] ([place] Comment on above: Performed By: #### Mery FIGUEROA, CMP #### [address] [address] Bili Total 0.6 mg/dL Normal 0.2-1.0 [facility] Comment on above: Result Comment: Use of this assay is not recommended for patients undergoing treatment with eltrombopag due to the potential for falsely elevated results. Performed By: #### Mery FIGUEROA, CMP #### [address] [address] BUN/Creatinine Ratio 12 ratio Normal 7-27 [facility] ([place]) Comment on above: Performed By: #### G , CMP #### [address] [address] Calcium [Mass/Vol] 9.1 mg/dL Normal 8.4-10.2 [facility] ([place]) Comment on above: Performed By: #### Mery FIGUEROA, CMP #### [address] [address] Chloride [Moles/Vol] 101 mmol/L Normal 98-107 [facility] ([place]) Comment on above: Performed By: #### G , CMP #### [address] [address] CO2 [Moles/Vol] 30 mmol/L High 22-29 [facility] ([place]) Comment on above: Performed By: #### G FR, CMP #### [address] [address] Creatinine [Mass/Vol] 0.83 mg/dL Normal 0.55-1.02 [facility] ([place]) Comment on above: Performed By: #### G , CMP #### [address] [address] Electrolyte Balance 8.0 mEq/L Normal 4.0-15.0 [facility] ([place]) Comment on above: Performed By: #### G , CMP #### [address] [address] Globulin 3.4 G/dL [facility] ([place] Comment on above: Performed By: #### G , CMP #### [address] [address] Glucose [Mass/Vol] 91 mg/dL Normal 70-105 [facility] ([place]) Comment on above: Performed By: #### G , CMP #### [address] [address] Potassium [Moles/Vol] 3.6 mmol/L Normal 3.5-5.1 [facility] ([place]) Comment on above: Performed By: #### G FR, CMP #### [address] [address] Sodium [Moles/Vol] 139 mmol/L Normal 136-145 [facility] ([place]) Comment on above: Performed By: #### G FR, CMP #### [address] [address] Total Protein 7.7 G/dL Normal 6.4-8.2 Pending sale to [facility] ([place]) Comment on above: Performed By: #### G FR, CMP #### [address] [place], [place] [address] Urea nitrogen [Mass/Vol] 10 mg/dL Normal 7-18 [facility] Comment on above: Performed By: #### G , [facility] #### [id number] [place], [place] [address] US PELVIS NON-OB W/TRANSVAGI NALon 06-06-2024 US PELVIS NON-OB W/TRANSVAGINAL ORIGINAL EXAMINATION: TRANSVAGINAL PELVIC ULTRASOUND 06/05/2024 All images recorded and archived. TECHNIQUE: Transabdominal and Transvaginal pelvic ultrasound was performed. COMPARISON: None HISTORY: ORDERING SYSTEM PROVIDED HISTORY: Reason for Exam: IRREGULAR MENSTRUATION Pelvic pain FINDINGS: Measurements: Uterus: 7.2 x 4.2 x 7cm Endometrial stripe: 0.8 cm Right Ovary:4.1 x 2.3 x 2.1 cm, 13 cc Left Ovary: 3.8 x 1.7 x 1.9 cm, 6 cc Ultrasound Findings: Uterus: Uterus is retroverted, demonstrates normal myometrial echotexture. No focal lesion seen. Endometrial stripe: Endometrial stripe is within normal limits. No focal lesion seen. Right Ovary: Right ovary is within normal limits. There is normal arterial and venous Doppler flow and spectral waveform. Left Ovary: Left ovary is within normal limits. There is normal arterial and venous Doppler flow and spectral waveform. Free Fluid: Physiological free fluid. IMPRESSION: Unremarkable pelvic ultrasound. Normal sonographic appearance and color doppler of the ovaries. I have personally reviewed the images of this examination and agree with the resident's findings and interpretation. Interpreted by: Feliz Urrutia DO Preliminary Report By: Shakeel Smith Electronically signed By Feliz Urrutia DO Dictated Date: 06/06/2024 1:40:33 PM Prelim Date: 06/06/2024 2:12:26 PM Sign Date: 06/06/2024 2:12:26 PM Ordering Provider: KAYDEN LOU [facility] ([place]) DHEASon 05-17-2024 DHEA-SO4 80.53 mcg/dL Normal 25.90-460.20 [facility] ([place]) Comment on above: Result Comment: No te - New Reference Range in effect 20 Performed By: #### T SH, FT3 #### [address] [address] #### FSH, DHEAS, E2, LH, TESTO, PROG #### [address] [address] E2on 05-17-2024 Estradiol Level 86.63 pg/mL [facility] ([place] Comment on above: Result Comment: No te - New Reference Range in effect 20 Adult Female E2 Reference Ranges: Follicular phase 19.5 - 144.2 pg/mL Midcycle 63.9 - 356.7 pg/mL Luteal phase 55.8 - 214.2 pg/mL Post menopausal 0 - 33.2 pg/mL Performed By: #### T SH, FT3 #### [address] [address] #### FSH, DHEAS, E2, LH, TESTO, PROG #### [place] [address] FSHon 05-17-2024 FSH 11.9 mIU/mL Normal [facility] ([place]) Comment on above: Result Comment: Adul t Female FSH Reference Ranges (09/16/99): Follicular phase 2.5 - 10.2 mIU/mL Midcycle phase 3.4 - 33.4 mIU/mL Luteal phase 1.5 - 9.1 mIU/mL Post menopausal 23.0 -116.3 mIU/mL Adult Male: 1.4 - 18.1 mIU/mL Performed By: #### T SH, FT3 #### [address] [address] #### FSH, DHEAS, E2, LH, TESTO, PROG #### [address] [address] FT3on 05-17-2024 Free T3 [Mass/Vol] 3.94 pg/mL Normal 2.30-4.00 [facility] ([place]) Comment on above: Performed By: #### T SH, FT3 #### [place] [id number] #### FSH, DHEAS, E2, LH, TESTO, PROG #### [place] [address] LABORATORYOrdered By: SYSTEM SYSTEM on 05-17-2024 DHEA-S [Mass/Vol] 80.53 ug/dL Normal 25.90 - 460.20 mcg/dL [facility] Comment on above: Interpretive Data: * *Note - New Reference Range in effect 20 E2 [Mass/Vol] 86.63 pg/mL Invalid Interpretation Code [facility] Comment on above: Interpretive Data: * *Note - New Reference Range in effect 20 Adult Female E2 Reference Ranges: Follicular phase 19.5 - 144.2 pg/mL Midcycle 63.9 - 356.7 pg/mL Luteal phase 55.8 - 214.2 pg/mL Post menopausal 0 - 33.2 pg/mL Follitropin Qn 11.9 m[IU]/mL Invalid Interpretation Code [facility] Comment on above: Interpretive Data: A dult Female FSH Reference Ranges (09/16/99): Follicular phase 2.5 - 10.2 mIU/mL Midcycle phase 3.4 - 33.4 mIU/mL Luteal phase 1.5 - 9.1 mIU/mL Post menopausal 23.0 -116.3 mIU/mL Adult Male: 1.4 - 18.1 mIU/mL Free T3 [Mass/Vol] 3.94 pg/mL Normal 2.30 - 4. 00 pg/mL [facility] Lutropin Qn 16.2 m[IU]/mL Invalid Interpretation Code [facility] Comment on above: Interpretive Data: * *Note - New Reference Range in effect 20Adult Female LH Reference Ranges: Follicular phase 1.9 - 12.5 mIU/mL Midcycle phase 8.7 - 76.3 mIU/mL Luteal phase 0.5 - 16.9 mIU/mL Post menopausal 5.0 - 55.2 mIU/mL Progesterone [Mass/Vol] 0.4 ng/mL Invalid Interpretation Code [facility] Comment on above: Interpretive Data: A dult Female Progesterone Reference Ranges: Follicular phase <0.21 - 1.40 ng/mL Luteal phase 3.34 - 25.56 ng/mL Mid-Luteal phase 4.44 - 28.03 ng/mL Postmenopausal <0.21 - 0.73 ng/ml Female: First trimester 11.22 - 90.00 ng/ml Second trimester 25.55 - 89.40 ng/ml Third trimester 48.40 - 422.50 ng/ml Testosterone [Mass/Vol] 118.61 ng/dL Invalid Interpretation Code AH ADM SS Comment on above: Interpretive Data: N ormal Reference Ranges for Females: Female Premenopause Nif18-679.01-47.94 ng/dL Female Postmenopause [id number]<7.00-45.62 ng/dL TSH Qn 0.65 m[IU]/L Normal 0.36 - 3.74 mcIU/mL AO ADM SS LHon 05-17-2024 LH 16.2 mIU/mL Normal [facility] ([place]) Comment on above: Result Comment: No te - New Reference Range in effect 20Adult Female LH Reference Ranges: Follicular phase 1.9 - 12.5 mIU/mL Midcycle phase 8.7 - 76.3 mIU/mL Luteal phase 0.5 - 16.9 mIU/mL Post menopausal 5.0 - 55.2 mIU/mL Performed By: #### T SH, FT3 #### [address] [address] #### FSH, DHEAS, E2, LH, TESTO, PROG #### [address] [address] PROGon 05-17-2024 Progesterone Level 0.4 ng/mL Normal [facility] ([place]) Comment on above: Result Comment: Adul t Female Progesterone Reference Ranges: Follicular phase <0.21 - 1.40 ng/mL Luteal phase 3.34 - 25.56 ng/mL Mid-Luteal phase 4.44 - 28.03 ng/mL Postmenopausal <0.21 - 0.73 ng/ml Female: First trimester 11.22 - 90.00 ng/ml Second trimester 25.55 - 89.40 ng/ml Third trimester 48.40 - 422.50 ng/ml Performed By: #### T SH, FT3 #### [address] [place] [address] #### FSH, DHEAS, E2, LH, TESTO, PROG #### [place] [address] TESTOon 05-17-2024 Testosterone Lvl 118.61 ng/dL Normal [facility] ([place]) Comment on above: Result Comment: Norm al Reference Ranges for Females: Female Premenopause Age 21-60 9.01-47.94 ng/dL Female Postmenopause Age 45-89 <7.00-45.62 ng/dL Performed By: #### T SH, FT3 #### [place] [address] #### FSH, DHEAS, E2, LH, TESTO, PROG #### [place] [address] TSHon 05-17-2024 TSH Qn 0.65 m[IU]/L Normal 0.36-3.74 [facility] ([place]) Comment on above: Performed By: #### T SH, FT3 #### [address] [address] #### FSH, DHEAS, E2, LH, TESTO, PROG #### [place] [address] LABORATORYOrdered By: SYSTEM SYSTEM on 06-06-2023 25-hydroxyvitamin D3 [Mass/Vol] 76.2 ng/mL Invalid Interpretation Code AO ADM SS Comment on above: Interpretive Data: I nterpretive Values Based on Total 25(OH) Vitamin D: Deficient <20 ng/mL Insufficient 20 - <30 ng/mL Sufficient 30-100 ng/mL Basophil, Absolute 0.0 103/mcL Invalid Interpretation Code 0.0 - 0.2 10^3/mcL AO Workflow SS Basophils/100 WBC (Bld) 0.5 % Invalid Interpretation Code 0.0 - 2.5 % AO Workflow SS Eosinophil, Absolute 0.1 103/mcL Invalid Interpretation Code 0.0 - 0.4 10^3/mcL AO Workflow SS Eosinophils/100 WBC (Bld) 2.2 % Invalid Interpretation Code 0.0 - 7.0 % AO Workflow SS Erythrocyte distribution width (RBC) [Ratio] 14.5 % Invalid Interpretation Code 11.5 - 14.5 % AO Workflow SS Hematocrit (Bld) [Volume fraction] 43.3 % Invalid Interpretation Code 37.0 - 47.0 % AO Workflow SS Hemoglobin (Bld) [Mass/Vol] 14.7 G/dL Invalid Interpretation Code 12.0 - 16.0 G/dL AO Workflow SS Iron [Mass/Vol] 297 ug/dL Invalid Interpretation Code 50 - 170 mcg/dL AO ADM SS Lymphocyte, Absolute 2.0 103/mcL Invalid Interpretation Code 0.8 - 3.9 10^3/mcL AO Workflow SS Lymphocytes/100 WBC (Bld) 32.6 % Invalid Interpretation Code 10.0 - 50.0 % AO Workflow SS MCH (RBC) [Entitic mass] 29.0 pg Invalid Interpretation Code 27.0 - 31.2 pg AO Workflow SS MCHC 34.0 G/dL Invalid Interpretation Code 33.0 - 37.0 G/dL AO Workflow SS MCV (RBC) [Entitic vol] 85.3 fL Invalid Interpretation Code 80.0 - 94.0 fL AO Workflow SS Monocyte, Absolute 0.4 103/mcL Invalid Interpretation Code 0.2 - 1.0 10^3/mcL AO Workflow SS Monocytes/100 WBC (Bld) 7.1 % Invalid Interpretation Code 1.7 - 13.0 % AO Workflow SS Neutrophil, Absolute 3.5 103/mcL Invalid Interpretation Code 2.9 - 6.2 10^3/mcL AO Workflow SS Neutrophils/100 WBC (Bld) 57.6 % Invalid Interpretation Code 37.0 - 80.0 % AO Workflow SS Platelet mean volume (Bld) [Entitic vol] 7.8 fL Invalid Interpretation Code 7.4 - 10.4 fL AO Workflow SS Platelets (Bld) [#/Vol] 281 103/mcL Invalid Interpretation Code 130 - 400 10^3/mcL AO Workflow SS RBC (Bld) [#/Vol] 5.08 106/mcL Invalid Interpretation Code 4.20 - 5.40 10^6/mcL AO Workflow SS WBC (Bld) [#/Vol] 6.1 103/mcL Invalid Interpretation Code 4.6 - 10.8 10^3/mcL AO Workflow SS LABORATORYOrdered By: Reina Peñaloza on 09-24-2022 Appearance (U) Slightly Cloudy *ABN* (09/24/22 3:04 PM) Invalid Interpretation Code Clear AO Auto Urine SS Bacteria LM.HPF (Urine sed) [#/Area] Trace /HPF Invalid Interpretation Code AO Auto Urine SS Bilirubin Ql (U) Negative (09/24/22 3:04 PM) Invalid Interpretation Code Negative AO Auto Urine SS Color (U) Yellow (09/24/22 3:04 PM) Invalid Interpretation Code AO Auto Urine SS Crystals.amorphous LM.HPF (Urine sed) [#/Area] 1 /[HPF] Invalid Interpretation Code AO Auto Urine SS Glucose Test strip (U) [Mass/Vol] Negative Invalid Interpretation Code Negativemg/dL AO Auto Urine SS HCG ( test) Ql Negative (09/24/22 3:04 PM) Invalid Interpretation Code AO Manual Urine SS Hemoglobin Auto test strip (U) [Mass/Vol] Negative (09/24/22 3:04 PM) Invalid Interpretation Code Negative AO Auto Urine SS Ketones Ql (U) Negative Invalid Interpretation Code Negativemg/dL AO Auto Urine SS test (u) int Not detected Invalid Interpretation Code AO Manual Urine SS UA Leuk Est Negative (09/24/22 3:04 PM) Invalid Interpretation Code Negative AO Auto Urine SS UA Nitrite Negative (09/24/22 3:04 PM) Invalid Interpretation Code Negative AO Auto Urine SS UA pH 7.5 (09/24/22 3:04 PM) Invalid Interpretation Code 5.0 - 8.0 AO Auto Urine SS UA Protein Negative Invalid Interpretation Code Negativemg/dL AO Auto Urine SS UA RBC 0-5 /HPF Invalid Interpretation Code None Seen/HPF AO Auto Urine SS UA Spec Grav 1.020 (09/24/22 3:04 PM) Invalid Interpretation Code 1.015-1.025 AO Auto Urine SS UA Specimen Type Not Given (09/24/22 3:04 PM) Invalid Interpretation Code AO Auto Urine SS UA Squam Epithelial 5-10 /HPF Invalid Interpretation Code None Seen/HPF AO Auto Urine SS UA Urobilinogen 0.2 E.U./dL Invalid Interpretation Code 0.2-1.0E.U./d L AO Auto Urine SS WBC LM.HPF (Urine sed) [#/Area] 0-5 /HPF Invalid Interpretation Code None Seen/HPF AO Auto Urine SS LABORATORYOrdered By: Peggy Reaves on 09-03-2021 ABO/Rh Interp Positive Invalid Interpretation Code AO BB SS Appearance (U) Cloudy *ABN* (09/03/21 8:17 PM) Invalid Interpretation Code Clear AO Auto Urine SS Bacteria LM.HPF (Urine sed) [#/Area] Trace /HPF Invalid Interpretation Code AO Auto Urine SS Basophil, Absolute 0.00 103/mcL Invalid Interpretation Code 0.00 - 0.19 10^3/mcL AO Auto Heme SS Basophils/100 WBC (Bld) 0.5 % Invalid Interpretation Code 0.0 - 2.5 % AO Auto Heme SS Bilirubin Ql (U) Negative (09/03/21 8:17 PM) Invalid Interpretation Code Negative AO Auto Urine SS Calcium [Mass/Vol] 9.2 mg/dL Invalid Interpretation Code 8.4 - 10.2 mg/dL AO ADM SS Chloride [Moles/Vol] 100 mmol/L Invalid Interpretation Code 98 - 107 mmol/L AO ADM SS CO2 [Moles/Vol] 26 mmol/L Invalid Interpretation Code 22 - 29 mmol/L AO ADM SS Color (U) Yellow (09/03/21 8:17 PM) Invalid Interpretation Code AO Auto Urine SS Creatinine [Mass/Vol] 0.54 mg/dL Invalid Interpretation Code 0.55 - 1.02 mg/dL AO ADM SS Electrolyte Balance 13.0 mEq/L Invalid Interpretation Code AO ADM SS Eosinophil, Absolute 0.10 103/mcL Invalid Interpretation Code 0.00 - 0.40 10^3/mcL AO Auto Heme SS Eosinophils/100 WBC (Bld) 1.6 % Invalid Interpretation Code 0.0 - 7.0 % AO Auto Heme SS Erythrocyte distribution width (RBC) [Ratio] 14.1 % Invalid Interpretation Code 11.5 - 14.5 % AO Auto Heme SS Glucose [Mass/Vol] 102 mg/dL Invalid Interpretation Code 70 - 105 mg/dL AO ADM SS Glucose Test strip (U) [Mass/Vol] Negative Invalid Interpretation Code Negativemg/dL [place] [address].8 m[IU]/mL Invalid Interpretation Code AO ADM SS Hematocrit (Bld) [Volume fraction] 37.2 % Invalid Interpretation Code 37.0 - 47.0 % AO Auto Heme SS Hemoglobin (Bld) [Mass/Vol] 12.6 G/dL Invalid Interpretation Code 12.0 - 16.0 G/dL AO Auto Heme SS Hemoglobin Auto test strip (U) [Mass/Vol] Large *ABN* (09/03/21 8:17 PM) Invalid Interpretation Code Negative AO Auto Urine SS Ketones Ql (U) Negative Invalid Interpretation Code Negativemg/dL AO Auto Urine SS Lymphocyte, Absolute 2.30 103/mcL Invalid Interpretation Code 0.77 - 3.85 10^3/mcL AO Auto Heme SS Lymphocytes/100 WBC (Bld) 28.0 % Invalid Interpretation Code 10.0 - 50.0 % AO Auto Heme SS MCH (RBC) [Entitic mass] 28.5 pg Invalid Interpretation Code 27.0 - 31.2 pg AO Auto Heme SS MCHC (RBC) [Mass/Vol] 34.0 G/dL Invalid Interpretation Code 33.0 - 37.0 G/dL AO Auto Heme SS MCV (RBC) [Entitic vol] 83.9 fL Invalid Interpretation Code 80.0 - 94.0 fL AO Auto Heme SS Monocyte, Absolute 0.50 103/mcL Invalid Interpretation Code 0.15 - 1.00 10^3/mcL AO Auto Heme SS Monocytes/100 WBC (Bld) 5.9 % Invalid Interpretation Code 1.7 - 13.0 % AO Auto Heme SS Neutrophil, Absolute 5.30 103/mcL Invalid Interpretation Code 2.85 - 6.16 10^3/mcL AO Auto Heme SS Neutrophils/100 WBC (Bld) 64.0 % Invalid Interpretation Code 37.0 - 80.0 % AO Auto Heme SS Platelet mean volume (Bld) [Entitic vol] 7.2 fL Invalid Interpretation Code 7.4 - 10.4 fL AO Auto Heme SS Platelets (Bld) [#/Vol] 365 103/mcL Invalid Interpretation Code 130 - 400 10^3/mcL AO Auto Heme SS Potassium [Moles/Vol] 3.5 mmol/L Invalid Interpretation Code 3.5 - 5.1 mmol/L AO ADM SS RBC (Bld) [#/Vol] 4.43 106/mcL Invalid Interpretation Code 4.20 - 5.40 10^6/mcL AO Auto Heme SS Sodium [Moles/Vol] 139 mmol/L Invalid Interpretation Code 136 - 145 mmol/L AO ADM SS UA Leuk Est Negative (09/03/21 8:17 PM) Invalid Interpretation Code Negative AO Auto Urine SS UA Mucous Trace /HPF Invalid Interpretation Code AO Auto Urine SS UA Nitrite Negative (09/03/21 8:17 PM) Invalid Interpretation Code Negative AO Auto Urine SS UA pH 7.0 (09/03/21 8:17 PM) Invalid Interpretation Code 5.0 - 8.0 AO Auto Urine SS UA Protein Negative Invalid Interpretation Code Negativemg/dL AO Auto Urine SS UA RBC 0-5 /HPF Invalid Interpretation Code None Seen/HPF AO Auto Urine SS UA Spec Grav 1.020 (09/03/21 8:17 PM) Invalid Interpretation Code 1.015-1.025 AO Auto Urine SS UA Specimen Type Clean Catch (09/03/21 8:17 PM) Invalid Interpretation Code AO Auto Urine SS UA Squam Epithelial 0-5 /HPF Invalid Interpretation Code None Seen/HPF AO Auto Urine SS UA Urobilinogen 0.2 E.U./dL Invalid Interpretation Code 0.2-1.0E.U./d L AO Auto Urine SS Urea nitrogen [Mass/Vol] 6 mg/dL Invalid Interpretation Code 7 - 18 mg/dL AO ADM SS Urea nitrogen/Creatinine [Mass ratio] 11 ratio Invalid Interpretation Code 7 - 27 ratio AO ADM SS WBC (Bld) [#/Vol] 8.20 103/mcL Invalid Interpretation Code 4.60 - 10.80 10^3/mcL AO Auto Heme SS WBC LM.HPF (Urine sed) [#/Area] None Seen /HPF Invalid Interpretation Code None Seen/HPF AO Auto Urine SS LABORATORYOrdered By: SYSTEM SYSTEM on 09-03-2021 GFR 163 ml/min/1.73sqm Invalid Interpretation Code AO Chemistry S GFR Non- 134 ml/min/1.73sqm Invalid Interpretation Code AO [facility] CADEN DEE ([id number]) 1995 F Date Time Provider Department 07/03/21 LILI CANO, CHEVY MAZA During your visit today, we recorded the following information about you: Danya Ng LPN 07/03/2021 1:42 PM Signed Message left on secure [employer]. Referral for OV today states patient to be seen at [facility] in [place]. Requesting patient call CC to make sure still wanting to keep this appointment or schedule with [facility]. Danya Ng LPN 07/03/2021 4:53 PM Signed Patient did not show for VV scheduled. Danya Ng LPN Allergies As of Date: 07/03/2021 Noted Allergy Reaction AMOXICILLIN 10/10/2015 2 - Rash PENICILLIN 02/17/2016 4 - Hives PENICILLINS 10/10/2015 2 - Rash Date Reviewed: 02/12/2018 Reviewed by: Danya Ng LPN - Fully Assessed Reason for Visit: Appointment question [Other] Prescriptions as of 07/03/2021 - oxyCODONE-acetamin ophen (PERCOCET) 5-325 mg tablet Take 1 tablet by mouth every 8 hours as needed for Pain. - ibuprofen (MOTRIN) 800 mg tablet Take 1 tablet by mouth every 8 hours as needed for Pain. Take with food. Problem List As Of Date: 07/03/2021 (None) Encounter Status:Closed by DANYA NG LPN on 07/03/21 Normal [facility] Vital Signs Date Time Vital Sign Value Performing Clinician Facility 08-09-2024 13:14-0400 Blood Pressure Location MONA VORA DO [facility] 08-09-2024 13:14-0400 Body height 167.6 cm MONA VORA DO [facility] 08-09-2024 13:14-0400 Body weight 58.9 kg MONA VORA DO [facility] 08-09-2024 13:14-0400 Body weight 20.97 kg/m2 MONA VORA DO [facility] 08-09-2024 13:14-0400 Diastolic Blood Pressure Non-Invasive 63 mm[Hg] MONA VORA DO [facility] 08-09-2024 13:14-0400 Heart rate 64 /min MONA VORA DO [facility] 08-09-2024 13:14-0400 Respiratory rate 20 /min MONA VORA DO [facility] 08-09-2024 13:14-0400 Systolic Blood Pressure Non-Invasive 107 mm[Hg] MONA VORA DO [facility] 03-03-2024 12:24-0400 Diastolic Blood Pressure Non-Invasive 60 mm[Hg] TATYANA MENDEZ MD [facility] 03-03-2024 12:24-0400 Heart rate 92 /min TATYANA MENDEZ MD [facility] 03-03-2024 12:24-0400 Reason For Taking VItal Signs TATYANA EMNDEZ MD [facility] 03-03-2024 12:24-0400 Respiratory rate 16 /min TATYANA MENDEZ MD [facility] 03-03-2024 12:24-0400 Systolic Blood Pressure Non-Invasive 110 mm[Hg] TATYANA MENDEZ MD [facility] 03-03-2024 11:14-0400 Body temperature 96.8 [degF] TATYANA MENDEZ MD [facility] 03-03-2024 11:14-0400 Diastolic Blood Pressure Non-Invasive 79 mm[Hg] TATYANA MENDEZ MD [facility] 03-03-2024 11:14-0400 Heart rate 87 /min TATYANA MENDEZ MD [facility] 03-03-2024 11:14-0400 Respiratory rate 16 /min TATYANA MENDEZ MD [facility] 03-03-2024 11:14-0400 Systolic Blood Pressure Non-Invasive 120 mm[Hg] TATYANA MENDEZ MD [facility] 09-24-2022 13:54-0500 Body height 167.6 cm DANY ZENDEJAS MD [facility] 09-24-2022 13:54-0500 Body temperature 100.58 [degF] DANY ZENDEJAS MD [facility] 09-24-2022 13:54-0500 Body weight 70 kg DANY ZENDEJAS MD [facility] 09-24-2022 13:54-0500 Diastolic Blood Pressure Non-Invasive 70 1 DANY ZENDEJAS MD [facility] 09-24-2022 13:54-0500 Heart rate 88 /min DANY ZENDEJAS MD [facility] 09-24-2022 13:54-0500 Respiratory rate 20 /min DANY ZENDEJAS MD [facility] 09-24-2022 13:54-0500 Systolic Blood Pressure Non-Invasive 113 1 DANY ZENDEJAS MD [facility] 01-12-2022 15:00-0400 Diastolic blood pressure 62 mm[Hg] DANY ZENDEJAS MD [facility] 01-12-2022 15:00-0400 Heart rate 65 /min DANY ZENDEJAS MD [facility] 01-12-2022 15:00-0400 Mean blood pressure 77 mm[Hg] DANY ZENDEJAS MD [facility] 01-12-2022 15:00-0400 Systolic blood pressure 108 mm[Hg] DANY ZENDEJAS MD [facility] 01-12-2022 13:54-0400 Body temperature 97.7 [degF] DANY ZENDEJAS MD [facility] 01-12-2022 13:54-0400 Body weight 67.4 kg DANY ZENDEJAS MD [facility] 01-12-2022 13:54-0400 Diastolic blood pressure 60 mm[Hg] DANY ZENDEJAS MD [facility] 01-12-2022 13:54-0400 Heart rate 70 /min DANY ZENDEJAS MD [facility] 01-12-2022 13:54-0400 Mean blood pressure 75 mm[Hg] DANY ZENDEJAS MD [facility] 01-12-2022 13:54-0400 Respiratory rate 16 /min DANY ZENDEJAS MD [facility] 01-12-2022 13:54-0400 Systolic blood pressure 105 mm[Hg] DANY ZENDEJAS MD [facility] 09-03-2021 22:06-0500 Diastolic blood pressure 65 mm[Hg] MADELYN SANTOS MD [facility] 09-03-2021 22:06-0500 Heart rate 80 /min MADELYN SANTOS MD [facility] 09-03-2021 22:06-0500 Mean blood pressure 84 mm[Hg] MADELYN SANTOS MD [facility] 09-03-2021 22:06-0500 Respiratory rate 16 /min MADELYN SANTOS MD [facility] 09-03-2021 22:06-0500 Systolic blood pressure 122 mm[Hg] MADELYN SANTOS MD [facility] 09-03-2021 20:22-0500 Diastolic blood pressure 76 mm[Hg] MADELYN SANTOS MD [facility] 09-03-2021 20:22-0500 Heart rate 88 /min MADELYN SANTOS MD [facility] 09-03-2021 20:22-0500 Mean blood pressure 92 mm[Hg] MADELYN SANTOS MD [facility] 09-03-2021 20:22-0500 Respiratory rate 20 /min MADELYN SANTOS MD [facility] 09-03-2021 20:22-0500 Systolic blood pressure 124 mm[Hg] MADELYN SANTOS MD [facility] 09-03-2021 19:18-0500 Body temperature 98.24 [degF] MADELYN SANTOS MD [facility] 09-03-2021 19:18-0500 Body weight 74 kg MADELYN SANTOS MD [facility] 09-03-2021 19:18-0500 Diastolic blood pressure 76 mm[Hg] MADELYN SANTOS MD [facility] 09-03-2021 19:18-0500 Heart rate 84 /min MADELYN SANTOS MD [facility] 09-03-2021 19:18-0500 Respiratory rate 18 /min MADELYN SANTOS MD [facility] 09-03-2021 19:18-0500 Systolic blood pressure 121 mm[Hg] MADELYN SANTOS MD [facility] Encounters Encounter Date Encounter Type Care Provider Facility Start: 08-13-2024 End: 08-13-2024 ambulatory SHANE HUNTER MAIL LIST PROCESSOR-LINUX UNIX SYSTEM ADMINISTRATOR Facility:[facility] Start: 08-13-2024 End: 08-13-2024 Patient encounter procedure SHANE HUNTER MAIL LIST PROCESSOR-LINUX UNIX SYSTEM ADMINISTRATOR [facility] Start: 08-09-2024 End: 08-09-2024 Admission to establishment MONA VORA DO [facility] Start: 08-09-2024 End: 08-09-2024 ambulatory MONA VORA DO Facility:[facility] Start: 07-17-2024 ambulatory MONA VORA DO F acility:[facility] Start: 06-11-2024 ambulatory CHELO PANGETDOMINGUEZ R MAIL LIST PROCESSOR-LINUX UNIX SYSTEM ADMINISTRATOR Facility:A Start: 06-07-2024 End: 06-07-2024 ambulatory CHELO PANGETLER MAIL LIST PROCESSOR-LINUX UNIX SYSTEM ADMINISTRATOR Facility:[facility] Start: 06-05-2024 End: 06-05-2024 ambulatory KAYDEN LOU MAIL LIST PROCESSOR-CNM Facility:[facility] Start: 05-17-2024 End: 05-17-2024 ambulatory KAYDEN LOU MAIL LIST PROCESSOR-CNM Facility:[facility] Start: 05-17-2024 End: 05-17-2024 Patient encounter procedure KAYDEN LOU MAIL LIST PROCESSOR-CNM [facility] Start: 03-03-2024 End: 03-03-2024 Emergency department patient visit TATYANA MENDEZ MD [facility] Start: 10-08-2023 End: 10-08-2023 Emergency department patient visit LISA CAMEJO Facility:[facility] Start: 06-06-2023 End: 06-10-2023 Outreach Lab SHANE HUNTER MAIL LIST PROCESSOR-LINUX UNIX SYSTEM ADMINISTRATOR [facility] Start: 09-24-2022 End: 09-24-2022 Emergency department patient visit DANY ZENDEJAS MD [facility] Start: 01-12-2022 End: 01-12-2022 Emergency department patient visit DANY ZENDEJAS MD [facility] Start: 09-03-2021 End: 09-03-2021 Emergency department patient visit MADELYN SANTOS MD [facility] Procedures Date Procedure Procedure Detail Performing Clinician Dilation and curettage SARINA MENDEZ MD None (qualifier value) MADELYN SANTOS MD Immunizations Immunization Date Immunization Notes Care Provider Fa cili 05-04-2021 SARS-CoV-2 (COVID-19 ) mRNA-[id number] vaccine TATYANA MENDEZ MD [facility] Comment on above: Result Comment: 2023: TPVAL 04-06-2021 SARS-CoV-2 (COVID-19 ) mRNA-[id number] vaccine TATYANA MENDEZ MD [facility] Comment on above: Result Comment: 2023: TPVAL Payers Date Payer Category Payer Unknown [id number] 1995 Unknown [id number] 2.16.8 [id number] 1995 Unknown [id number] 2.16.8 [id number] 1995 Unknown [id number] 2.16.8 [id number] 1995 Unknown [id number] 2.16.8 [id number] 1995 Unknown [id number] 2.16.8 [id number] 1995 Unknown [id number] 2.16.8 [id number] 1995 Unknown [id number] 2.16.8 [id number] 1995 Unknown [id number] 2.16.8 [id number] 1995 Unknown [id number] 2.16.8 [id number] Social History Date Type Detail Facility Start: 04-07-2020 End: 08-09-2024 Ex-smoker (finding) [facility] Sex Assigned At Female [facility] Tobacco Nicotine Use: Va ping Product in Last 90 Days. Type: Electronic Cigarettes (Vaping). [facility] Tobacco smoking status No Smokin g Status Entered [facility] Functional Status Date Assessment Result Facility 08-09-2024 Functional Status Sensory Deficits None A [facility] 03-03-2024 Functional Status ID band on, Allergy Band on, Call device within reach, Bed in low position, Wheels locked, Bedside Cart Locked, Safety level maintained [facility] 03-03-2024 Functional Status [facility] 09-24-2022 Functional Status Independent [facility] Mental Status Date Assessment Result Facility 03-03-2024 Mental Status Orientation Oriented x 4 [facility] 03-03-2024 Mental Status [facility] 09-24-2022 Mental Status Orientation Oriented x 4 [facility] Clinical Notes 09-04-2021 to 05-30-2024 RadiologyRadiology Note Date & Type Note Facility 05-30-2024 Evaluation + Plan note Future Appointments Future Scheduled TestsXR Mandible Minimum 4 Views 05/30/24 [facility] 03-03-2024 Hospital Discharg e instructions Patient Education 03/03/2024 11:31:25 Headache, Migraine, Classic Migraine Headache This often severe type of headache is different from other types of headaches in that symptoms other than pain occur with the headache. Nausea and vomiting, lightheadedness, sensitivity to light (photophobia), and other visual disturbances are common migraine symptoms. The pain may last from a few hours to several days. It is not clear why migraines occur but certain factors called triggers can raise the risk of having a migraine attack. A migraine may be triggered by emotional stress or depression, or by hormone changes during the menstrual cycle. Other triggers include control pills, overuse of migraine medicines, alcohol or caffeine, foods with tyramine (such as aged cheese and wine), eyestrain, weather changes, missed meals, or too little or too much sleep. Home care Follow these tips when taking care of yourself at home: Don t drive yourself home if you were given pain medicine for your headache or are having visual symptoms. Instead, have someone else drive you home. [...] before each headache. Show this to your healthcare provider to help find the cause of your headaches. If stress seems to be a trigger for your headaches, figure out what is causing stress in your life. Learn new ways to handle your stress. Ideas include regular exercise, biofeedback, self-hypnosis, yoga, and meditation. Talk with your healthcare provider to find out more information about managing stress. Many books and digital media are also available on this subject. Tyramine is a substance found in many foods. It can trigger a migraine in some people. These foods contain tyramine: Chocolate Yogurt All cheeses, but especially aged cheeses Smoked or pickled fish and meat, including [...] often for your migraine, talk with your healthcare provider about other ways to prevent your headaches. Follow-up care Follow up with your healthcare [...] of your face Difficulty talking or seeing [phone] [employer]. [address] [place], [place] [address]. All rights reserved. This information is not intended as a substitute for professional medical care. Always follow your healthcare professional's instructions. Follow Up Care 03/03/2024 11:12:46 With:SHANE HUNTER Address: [address] [place] [address]- [phone] Business (1) When:2-4 days Comments:Follow-up as neededReturn to ED if symptoms worsen [facility] 03-03-2024 Note Discharge Instructions Thank you for allowing [facility] to assist you with your healthcare needs. The following is important discharge information regarding your hospital visit. Diagnosis from Today's Visit Headache Vomiting What to Do Next Instructions from Your Care Team No qualifying data available. Post Acute Orders No qualifying data available. You Need to Schedule the Following Appointments Follow Up with SHANE HUNTER When Within 2-4 days Why: Follow-up as needed Return to ED if symptoms worsen Where: [place] [address]- [phone] Business (1) Allergies amoxicillin penicillin Medications Please ask your primary doctor or pharmacist before taking any other medication not listed, including over the counter drugs, herbal medications, vitamins and or supplements as they may interact with your home medications. What How Much When Instructions Last Dose Unchanged ascorbic acid (Vitamin C 500 mg oral tablet) 1 tab(s) by mouth Two (2) times a day Unchanged cholecalciferol (cholecalciferol 1250 mcg (50,000 intl units) oral capsule) 1 cap by mouth Every week Unchanged ferrous sulfate (IRON (ferrous sulfate 325 mg) 65 mg oral tablet) 1 tab(s) by mouth Twice daily with meals Take with food. Unchanged Misc Medication (Medical Marijuana) Unchanged multivitamin ([employer] Women's Daily Multivitamin) 1 by mouth Once a day gummie chew before swallowing Unchanged sertraline (sertraline 25 mg oral tablet) 1 tab(s) by mouth Once a day Duration: 7 Days Please take this list to your next doctor s visit. Bring all medications you take, including over the counter medications, herbals and other supplements with you to your doctor s visit. Patients and families are reminded to discard old lists and to update any records with all medication providers or retail pharmacies. Education Materials Migraine Headache This often severe type of headache is different from other types of headaches in that symptoms other than pain occur with the headache. Nausea and vomiting, lightheadedness, sensitivity to light (photophobia), and other visual disturbances are common migraine symptoms. The pain may last from a few hours to several days. It is not clear why migraines occur but certain factors called triggers can raise the risk of having a migraine attack. A migraine may be triggered by emotional stress or depression, or by hormone changes during the menstrual cycle. Other triggers include control pills, overuse of migraine medicines, alcohol or caffeine, foods with tyramine (such as aged cheese and wine), eyestrain, weather changes, missed meals, or too little or too much sleep. Home care Follow these tips when taking care of yourself at home: Don t drive yourself home if you were given pain medicine for your headache or are having visual symptoms. Instead, have someone else drive you home. [...] before each headache. Show this to your healthcare provider to help find the cause of your headaches. If stress seems to be a trigger for your headaches, figure out what is causing stress in your life. Learn new ways to handle your stress. Ideas include regular exercise, biofeedback, self-hypnosis, yoga, and meditation. Talk with your healthcare provider to find out more information about managing stress. Many books and digital media are also available on this subject. Tyramine is a substance found in many foods. It can trigger a migraine in some people. These foods contain tyramine: Chocolate Yogurt All cheeses, but especially aged cheeses Smoked or pickled fish and meat, including [...] often for your migraine, talk with your healthcare provider about other ways to prevent your headaches. Follow-up care Follow up with your healthcare [...] of your face Difficulty talking or seeing [phone] [employer]. [address] [place] [address]. All rights reserved. This information is not intended as a substitute for professional medical care. Always follow your healthcare professional's instructions. Additional Information VACCINATE! IT SAVES LIVES! Members of the community who have not yet received the COVID-19 vaccine and would like to receive it can visit one of [facility] vaccine clinics. There are many vaccine clinic locations within the [facility]. For locations and available times, please visit [email or web address] [email or web address] It is important to note that some COVID mobile vaccine clinics are held outdoors and may be canceled in rainy or stormy conditions. To learn more about pediatric vaccinations (ages 5-11), we invite you to visit the [facility] webpage. [email or web address]/p [email or web address]-[email or web address] [email or web address].[email or web address] To learn more about the COVID-19 vaccine, we invite you to visit the CDC website for a list of frequently asked questions. https://www.cdc.gov/coronavirus/ 2019-ncov/vaccines/faq.html [facility] Patient Portal Access Instructions: Stay connected with your healthcare team and access your personal medical information anytime with the [facility] Patient Portal. If you would like a full copy of your medical records please contact the [facility] Medical Records Department Tuesday through Tuesday between 8a.m. and 4:30p.m. Please follow the directions below to access the portal: 1.Access the email account you provided upon registration to the hospital.2.Look for an invitation email from [facility].3.Open the email and access the invitation link: Accept Invitation to [facility]4.Fill in the required dodson to create your account. Sign into [email or web address] with your username and password that you [...] you will allow to register on the [facility] Patient Portal for access to your information. You can also access the [facility] Patient Portal on the [employer]. Simply click on Health Records under Health Data and then click on the [employer] logo. HOW TO SAFELY DISPOSE OF PRESCRIPTION [...] Call your local pharmacy or go to http://TaxJar.Motiga/[email or web address] to find one close to you.3.Make use of household items: Use cat litter or old coffee grounds to dispose medications if other options are not available. Mix your drugs with these household products, seal them in an airtight container and throw it into the garbage. Call [facility]: [phone] to be sure your drugs can be [...] CHART COPY Signatures Patient Education Materials Headache, Migraine, Classic Medication Leaflets My discharge plan and instructions have been reviewed and explained to me and ILEILA ERIKA B understand my current condition and have read and understand these discharge instructions. I have received a written copy of the plan/instructions. If I have questions, I am aware that I should contact my doctor. 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 [address] [place] [address]. All rights reserved. This information is not intended as a substitute for professional medical care. Always follow your healthcare professional's instructions. Follow Up Care 09/24/2022 13:48:19 With:Go to emergency room if symptoms worsen Address:Unknown When:2-4 days With:SHANE HUNTER Address: [address] [facility] [place] [address] [phone] When:2-4 days [facility] 09-24-2022 Note Discharge Instructions Thank you for allowing [facility] to assist you with your healthcare needs. [...] 2-4 days Follow Up with SHANE HUNTER When Within 2-4 days Where: [address] [place] [address]- [phone] Allergies amoxicillin penicillin Medications Please ask your [...] face You have trouble talking or seeing [phone] [employer]. [address] [place] [address]. All rights reserved. This information is not intended as a substitute for professional medical care. Always follow your healthcare professional's instructions. Additional Information VACCINATE! IT SAVES LIVES! Members of the community who have not yet received the COVID-19 vaccine and would like to receive it can visit one of [facility] vaccine clinics. There are many vaccine clinic locations within the [facility]. For locations and available times, please visit [email or web address]. It is important to note that some COVID mobile vaccine clinics are held outdoors and may be canceled in rainy or stormy conditions. To learn more about pediatric vaccinations (ages 5-11), we invite you to visit the [facility] webpage. [email or web address] To learn more about the COVID-19 vaccine, we invite you to visit the [facility] website for a list of frequently asked questions. [email or web address] [facility] Patient Portal Access Instructions: Stay connected with your healthcare team and access your personal medical information anytime with the [employer] Patient Portal. If you would like a full copy of your medical records please contact the [facility] Medical Records Department Tuesday through Tuesday between 8a.m. and 4:30p.m. Please follow the directions below to access the portal: 1.Access the email account you provided upon registration to the hospital.2.Look for an invitation email from [facility].3.Open the email and access the invitation link: Accept Invitation to [facility]4.Fill in the required dodson to create your account. Sign into [email or web address] with your username and password that you [...] you will allow to register on the [employer] Patient Portal for access to your information. You can also access the [facility] Patient Portal on the [employer]. Simply click on Health Records under Health Data and then click on the [employer] logo. HOW TO SAFELY DISPOSE OF PRESCRIPTION [...] Call your local pharmacy or go to http://TaxJar.Motiga/[email or web address] to find one close to you.3.Make use of household items: Use cat litter or old coffee grounds to dispose medications if other options are not available. Mix your drugs with these household products, seal them in an airtight container and throw it into the garbage. Call [facility]: [phone] to be sure your drugs can be [...] aware that I should contact my doctor. Patient/Scanner Supervisor Signature: Date/Time: Relationship to Patient: Witness Name/Signature: Date/Time: [facility] 01-12-2022 Hospital Discharg e instructions Patient Education [...] of your face Difficulty talking or seeing [phone] [employer]. [address] [place] [address], [place] [address]. All rights reserved. This information is not intended as a substitute for professional medical care. Always follow your healthcare professional's instructions. Follow Up Care 01/12/2022 13:41:59 [facility] Address: [phone] When:2-4 days [facility] 09-04-2021 Hospital Discharg e instructions Patient Education [...] or as directed by your healthcare provider [phone] [employer]. [address] [place] [address]. All rights reserved. This information is not intended as a substitute for professional medical care. Always follow your healthcare professional's instructions. Follow Up Care 09/03/2021 19:18:39 With:Your Pneumatic Deicer Inspector Address: When:2-4 days [facility] Evaluation + Plan note No data available for this section [facility] Evaluation + Plan note Future Appointments Appointment Date:08/13/2024 07:15:00 AM Scheduled Provider: Location:[facility] Appointment Type:MRI Brain w/ + w/o Contrast Future Scheduled TestsMRI Brain w/ + w/o Contrast 08/13/24XR Mandible Minimum 4 Views 05/30/24 [facility] Hospital Discharge instructions No data available for this section [facility] Progress note No data available for this section [facility] Summary Purpose Family History No Family History Records Found No data available for this section No data available for this section No data available for this section No Family History Records Found No data available for this section No data available for this section No Family History Records Found Advance Directives No Advanced Directives Records FoundNo Advanced Directives Records FoundNo Advanced Directives Records Found Additional Source Comments INFORMATION SOURCE (unrecogn ized section and content) DATE CREATED AUTHOR 11/15/2021 [facility] DATE CREATED AUTHOR AUTHOR'S ORGANIZ ATION 06/17/2024 [facility] ([place]) DATE CREATED AUTHOR AUTHOR'S ORGANIZ ATION 08/16/2024 [facility] Care Team (unrecognized sect ion and content) Care Team Personnel Name: SHANE HUNTER Position: P4 Advanced Practice Nurse Member Role: Primary Care Physician Address: Address: [address] [place] [address]- Name: Glenis Conde RN Position: AO RN Member Role: RN Name: SARAH BETH LEON DO Position: AH Resident Member Role: ED Physician Address: Address: [address] [facility] [place] [address]- Care Team Related Persons Name: ARIEL DEE Address: Home [address] [facility] [address] [place] [phone] [place] Name: TRISTON DEE Patient Care team informatio n (unrecognized section and content) Care Team Personnel Name: SHANE HUNTERLINUX UNIX SYSTEM ADMINISTRATOR Position: P4 Advanced Cotton Ball Machine Tender Member Role: Primary Care Physician Address: Address: [address] [place] [address]- Care Team Related Persons Name: ARIEL DEE Address: Home [address] [facility] [address] [place] [phone] [place] Name: TRISTON DEE Care Team Personnel Name: SHNAE HUNTERLINUX UNIX SYSTEM ADMINISTRATOR Position: P4 Advanced Cotton Ball Machine Tender Member Role: Primary Care Physician Address: Address: [address] [place] [address]- Care Team Related Persons Name: ARIEL DEE Address: Home [address] [place], [place] [phone] [place] Name: TRISTON DEE Name: TAYLOR DORADO Address: Home [address] [place], [place] [phone] Care Team Personnel Name: SHANE HUNTER APRN-LINUX UNIX SYSTEM ADMINISTRATOR Position: P4 Advanced Cotton Ball Machine Tender Member Role: Primary Care Physician Address: Address: [address] Care Team Related Persons Name: ARIEL DEE Address: Home [address] [place], [place] [phone] [place] Name: TRISTON DEE Name: TAYLOR DORADO Address: Home [address] [place], [place] [phone] Care Team Personnel Name: SHANE HUNTER APRN-LINUX UNIX SYSTEM ADMINISTRATOR Position: P4 Advanced Cotton Ball Machine Tender Member Role: Primary Care Physician Address: Address: [address] [place], [place] [address] [place] [address] Care Team Related Persons Name: ARIEL DEE Address: Home [address] [place], [place] [phone] [place] Name: TRISTON DEE Name: DARRYL DEE Address: Home [address] [place], [place] [phone] Name: TAYLOR DORADO Address: Home [address] [place], [place] [phone] Care Team Personnel Name: SHANE HUNTER APRN-LINUX UNIX SYSTEM ADMINISTRATOR Position: P4 Advanced Cotton Ball Machine Tender Member Role: Primary Care Physician Address: Address: [address] [place], [place] [address] Care Team Related Persons Name: ARIEL DEE Address: Home [address] [place], [place] [phone] [place] Name: TRISTON DEE Name: DARRYL DEE Address: Home [address] [place], [place] [phone] Name: TAYLOR DORADO Address: Home [address] [place], [place] [phone] FOR RECORDS PERTAINING TO PATIENTS WHO ARE [...] BE BASED ON THE PRIMARY CLINICAL RECORDS. [facility] [email or web address] [facility]. provides no warranty or guarantee of the accuracy or completeness of information in this document.
== END | disposition home or self-care (01) ==
LOC: MTLAB 13:51
PROVIDERS: PCP Nurse Practitioner Family; Referring Provider Psychiatry & Neurology Neurology; Visit Provider Psychiatry & Neurology Neurology
DX: G50.0 Trigeminal neuralgia (principal); G43.109 Migraine with aura, not intractable, without status migrainosus; G44.1 Vascular headache, not elsewhere classified
CPT/HCPCS: 36415; 80053; 82140; 83735; 85025

== ENCOUNTER 2025-07-03 10:28 | Emergency (ER) | payer MEDICAID, SELFPAY ==
[2025-07-03 10:29] VITALS: BP 105/63; PULSE 85; RESP 16; TEMP 36.8; O2SAT 100; BMI 25.4
--- NOTE | 2025-07-03 11:22 | CT_ITS ---
PROCEDURE: ABDOMEN/PELVIS W IV CONT ONLY 07/03/2025 REASON FOR EXAM: DIFFUSE ABDOMINAL PAIN. TECHNIQUE: Procedure Code: [id number] Modality: CT Procedure: ABDOMEN/PELVIS W IV CONT ONLY Coronal and Sagittal reconstruction series were provided. CONTRAST: Isovue 370 VOLUME: 75 mL One or more dose reduction techniques were used (e.g., Automated exposure control, adjustment of the mA and/or kV according to patient size, use of iterative reconstruction technique. RADIATION DOSE SUMMARY: CTDlvol: 25 mGy DLP: 775 mGycm COMPARISON: None FINDINGS: Lung bases: Clear Liver: No mass is seen. Periportal edema is present. Gallbladder: Normal. No biliary ductal dilation. Spleen: Normal. Pancreas: Pancreas divisum is present. Otherwise normal. No ductal dilation. No mass. Adrenals: Normal Kidneys: Normal. Bladder: Nearly empty but otherwise normal. Reproductive Organs: Uterus is retroverted. No adnexal mass. Corpus luteum is seen in the left. Bowel: Stomach appears normal. Small bowel is normal. Colon appears unremarkable. Appendix: Normal Lymph nodes: None appear enlarged. Vasculature: Normal. Peritoneum / Retroperitoneum: No free air, free fluid or mass. Bones: L3 pars defects are seen without spondylolisthesis. CT/Abdomen/Pelvis W IV Cont ONLY IMPRESSION: 1. No acute abnormality. 2. Periportal edema. This can be seen with aggressive hydration. 3. Pancreas divisum is present. Pancreas otherwise normal. 4. 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 Reading Location: [id number]
--- NOTE | 2025-07-03 11:25 | ED.VIS.GI ---
HPI HPI - GI History of Present Illness Chief Complaint: Abd Pain Detail of Chief Complaint: Abdominal pain and cramping. Informant: patient Abdominal Pain/Flank Pain Onset: Today and Hours (Started around 9 AM diffuse.) Context: Gradual Onset Timing: Continuous Quality: Aching and Cramping Location: Diffuse Current Severity: Mild Maximum Severity: Mild Worsened by: Nothing Relieved by: Nothing Nausea/Vomiting/Emesis GI Symptom: Negative for Nausea or Vomiting Diarrhea/Melena/Hematochezia GI Symptom: Negative for Diarrhea, Melena or Hematochezia Associated Symptoms Associated Symptoms: Negative for Dysuria, Frequency, Hematuria or Urgency Narrative Narrative: 29-year-old female G4, P3 Ab1 that being a miscarriage. Last menstrual period was around 06/19/2025. Says around 9 AM this morning she started having diffuse abdominal cramping. Denies any dysuria. No fever. No weight changes. No diarrhea constipation. No vaginal bleeding. Her last menstrual period was 06/19/2025. Prior similar symptoms: Yes Recent Illness/Hospitalization: No PFSH PFSH Medical History Anemia Dental caries Depression Anxiety Vaginal delivery Marijuana use Low iron Easy bruising Migraine headache Former smoker Home Medications ?Medication ?Instructions ?Recorded ?Last Taken ?Type fluoxetine 40 mg capsule 40 mg PO DAILY 06/06/24 Unknown History divalproex 250 mg tablet,extended 250 mg PO BID #60 tabs 10/01/24 Unknown Rx release 24 hr (Depakote ER) Allergy/AdvReac Type Severity Reaction Status Date / Time amoxicillin (Amoxicillin) Allergy Rash Verified 07/03/25 10:30 Penicillins Allergy Rash Verified 07/03/25 10:30 Family History Mother No problems noted. Father No problems noted. 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 Constitutional Constitutional ED: Denies chills or fever(s) ENT ENT ED: Denies ear pain Cardiovascular Cardiovascular: Denies chest pain Respiratory/Chest Respiratory/Chest: Denies cough or dyspnea Gastrointestinal Gastrointestinal: Reports abdominal pain; Denies constipation, diarrhea, melena, nausea or vomiting Genitourinary Genitourinary ED: Denies dysuria or hematuria Musculoskeletal Musculoskeletal: Denies arthralgias or back pain Integumentary Denies abscess Neurologic Neurologic: Denies headache(s) Psychiatric Psychiatric: Denies anxiety Endocrine Endocrinology: Denies polydipsia Hematologic/Lymphatic Hematologic/Lymphatic: Denies easy bleeding or easy bruising Allergic/Immunologic Allergic/Immunologic ED: Denies mouth swelling, tongue swelling or urticaria EXAM Physical Exam Narrative Exam Narrative: 29-year-old female sitting upright in bed. Vital signs stable afebrile. No acute distress. Complaining of abdominal discomfort. H EENT exam pupils round react light. Moist mucous membranes. Neck nontender no JVD. No lymphadenopathy. Lungs clear to auscultation bilaterally. Heart regular rhythm no murmur. Chest wall ribs nontender. Abdomen soft nondistended normal bowel sounds without peritoneal signs. Diffuse tenderness. No localizing tenderness. Right upper right lower quadrant unremarkable. No hernia or mass. No obstruction. Moving all 4 extremities. Nontender no edema. Normal strength and range of motion. Back nontender. Neurologically patient is awake alert. Answering questions following commands. Const Vital Signs: 07/03/25 10:29 07/03/25 12:28 07/03/25 14:00 Temperature 98.3 F Temperature Source Temporal Pulse Rate 85 61 99 Respiratory Rate 16 15 17 Blood Pressure 105/63 101/70 Blood Pressure Mean 77 80 Pulse Ox 100 100 99 Oxygen Delivery Method Room Air Positive well nourished and well developed; Negative for obese, cachectic, contractures or unkempt General Appearance ED: well developed and NAD; Negative for unkempt, cachectic, contractures or pallor Nutritional Appearance: Negative for cachectic or obese HEENT Reports moist mucous membranes normocephalic and atraumatic Eyes PERRL and EOMs intact bilaterally Neck no lymphadenopathy, supple and no JVD Resp normal respiratory effort and clear to auscultation bilaterally Cardio regular rate, regular rhythm, S1 normal heart sound, S2 normal heart sound and no murmurs GI non-distended and no masses; Negative for non-tender Inspection: Negative for abdominal distention Auscultation: normoactive bowel sounds Palpation: soft and tender; Negative for guarding, rigid, hepatomegaly, splenomegaly, hernia, mass, pulsatile mass or rebound tenderness present Back/Spine no CVA tenderness Extremity full ROM General Extremety ED: Negative for edema or tenderness General Extremity: Negative for edema Neuro CN's II-XII intact bilaterally and moves all extremities Sensorium / Orientation: alert, oriented to person, oriented to place and oriented to time Motor Exam: strength 5/5 throughout Psych mental status grossly normal and thought process normal Appearance: Negative for unkempt Skin no wounds General Skin Exam: Negative for jaundice or pallor Lesions: no lesions Rashes: no rashes MDM MDM MDM Narrative Medical decision making narrative: 29-year-old female with diffuse abdominal pain. CAT scan and labs are being obtained differential would include constipation, clinically I do not think this is obstruction, appendicitis but not clinically fit physical exam. Gallbladder disease versus other etiologies. CAT scan labs are pending. Should be treated with morphine and Zofran for pain. Repeat exam at around 2:40 PM. Patient I discussed her test results and CAT scan. I know the specific cause for her pain. She be given Toradol and second dose of morphine prior to discharge outpatient follow-up with her primary care provider. Repeat exam is unchanged. History & Record Review Discussion w/independent historian: Patient Additional record(s) reviewed:: Prior inpatient record, Prior outpatient record, Prior ED visit and Prior labs Lab Data Attestation: I reviewed the patient's lab results. Lab results narrative: CBC showed a white count of 7.9. H&H 11.3 and 35. Platelets 222. CBC is consistent with prior. Serum test negative. Chemistry shows sodium 137. Gap 11. Normal BUN and creatinine. Glucose 99. Liver enzymes showed AST of 91. ALT of 66. Lipase is only 54. Urinalysis is normal. No white or red cells. No nitrates no bacteria. Labs: Laboratory Results - last 24 hr 07/03/25 07/03/25 11:36 12:25 WBC 7.9 RBC 4.13 L Hgb 11.3 L Hct 35.0 L MCV 84.7 MCH 27.4 MCHC 32.3 RDW Std Deviation 41.8 RDW Coeff of Cayla 13.5 Plt Count 222 MPV 8.6 Immature Gran % (Auto) 0.300 Neut % (Auto) 84.8 H Lymph % (Auto) 8.1 L [place] % (Auto) 5.8 Eos % (Auto) 0.6 Baso % (Auto) 0.4 Absolute Neuts (auto) 6.7 Absolute Lymphs (auto) 0.64 L Nucleated RBC % 0 Sodium 137 Potassium 3.9 Chloride 103 Carbon Dioxide 23.8 Anion Gap 11 BUN 9 Creatinine 0.72 Estim Creat Clear Calc 114.63 Est GFR (MDRD) Non-Af 115 BUN/Creatinine Ratio 13.1 Glucose 99 Calcium 9.1 Total Bilirubin 1.06 AST 91 H ALT 66 H Alkaline Phosphatase 91 Total Protein 7.2 Albumin 4.3 Globulin 2.8 Albumin/Globulin Ratio 1.5 Lipase 54 Serum , Qual NEGATIVE Urine Color Yellow Urine Clarity Clear Urine pH 7.0 Ur Specific Doyle 1.010 Urine Protein 15 H Urine Glucose (UA) Normal Urine Ketones Negative Urine Occult Blood Negative Urine Nitrite Negative Urine Bilirubin Negative Urine Urobilinogen Normal Ur Leukocyte Esterase Negative Urine RBC 0 SEEN Urine WBC 0-5 SEEN Ur Squamous Epith Cells 0-5 SEEN Urine Bacteria 0 SEEN Urine Mucus 0 SEEN Radiography Diagnostic Testing: Clinical Impression(s) from Imaging Studies Abdomen/Pelvis CT 07/03/25 11:22 IMPRESSION: 1. No acute abnormality. 2. Periportal edema. This can be seen with aggressive hydration. 3. Pancreas divisum is present. Pancreas otherwise normal. 4. 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 Reading Location: [id number] Discharge Plan Triage Chief Complaint: Abd Pain ED Provider: Bo Echavarria Dx/Rx/DC Orders Clinical Impression: Abdominal pain Instructions: Abdominal Pain Prescriptions: No Action divalproex [Depakote ER] 250 mg tablet extended release 24 hr 250 mg PO BID Qty: 60 4RF fluoxetine 40 mg capsule 40 mg PO DAILY Primary Care Provider: Loren Allen NP Referrals: Loren Allen STUDENT DRIVING INSTRUCTOR, STUDENT DRIVING INSTRUCTOR-C [Primary Care Provider] - 3-5 Days Activity Restrictions/Additional Instructions: No specific cause for your abdominal pain. Plenty of fluids. Fruits vegetables fiber. Motrin and Tylenol for pain. Follow-up with your primary care provider for further evaluation. Your CAT scan and labs look good today. Print Language: German Disposition Disposition: Home, Self Care
[2025-07-03 11:43] LABS: Hematocrit 35.0 % (37-47); Hemoglobin 11.3 g/dL (12.0-15.0); Immature Granulocytes Count 0.020 X10^3/uL (0.0-0.0); Mean Corp Hgb Conc 32.3 g/dL (32-36); Mean Corpuscular Volume 84.7 fL (81-99); Mean Platelet Vol. 8.6 fl (6.2-12.0); NRBC Flagged by Analyzer 0 % (0-5); Platelet Count 222 K/mm3 (150-450); RBC Distribution Width CV 13.5 % (11.6-14.6); RBC Distribution Width SD 41.8 fl (35.1-43.9); Red Blood Count 4.13 M/mm3 (4.2-5.4); White Blood Count 7.9 K/mm3 (4.4-11.0)
[2025-07-03 11:54] LABS: Internal QC Validated? YES +Cl - CLEAR BKGD; Pregnancy, Serum, hCG Quali. NEGATIVE Negative; Record Kit Lot#, Serum Preg. 964736
[2025-07-03 12:28] VITALS: BP 101/70; PULSE 61; RESP 15; O2SAT 100
[2025-07-03 12:28] LABS: Mucous, Urine 0 SEEN /hpf (<or=2+); Red Blood Cells-Urine 0 SEEN /hpf (0-5)
[2025-07-03 12:42] LABS: Color, Urine Yellow (Yellow); Glucose, Dipstick Normal (Normal); Ketone-Dipstick Negative (Negative); Leukocyte Esterase-Dipstick Negative /ul (Negative); Nitrite-Dipstick Negative (Negative); Occult Blood-Urine Negative /ul (Negative); Protein-Dipstick 15 mg/dl (Negative); Specific Gravity, Urine 1.010 (1.002-1.030); Urine Bilirubin Dipstick Negative (Negative)
[2025-07-03 12:57] LABS: AST(SGOT) 91 U/L (<=31); Alanine Aminotransfer ALT/SGPT 66 U/L (<=34); Albumin, Serum 4.3 g/dL (3.5-5.0); Alkaline Phosphatase 91 U/L (35-104); Anion Gap 11 (5-15); BUN 9 mg/dL (4-19); BUN/Creat Ratio 13.1 RATIO (10-20); Calcium,Total 9.1 mg/dL (7.6-11.0); Carbon Dioxide 23.8 mmol/L (21.0-32.0); Chloride 103 mmol/L (98-108); Estimated Creatinine Clearance 114.63 ml/min (50-250); Globulin 2.8 g/dL (2.2-4.2); Glucose 99 mg/dL (70-99); Lipase 54 U/L (13-75); Potassium 3.9 mmol/L (3.3-5.1)
[2025-07-03 12:57] LABS: Squamous Epithelial Cells - UA 0-5 SEEN /hpf (5-10)
[2025-07-03 14:00] VITALS: PULSE 99; RESP 17; O2SAT 99
[2025-07-03] MEDS: Ketorolac 30 MG/ML Syringe IV (14:46)
[2025-07-03 14:50] VITALS: BP 116/66; PULSE 70; RESP 15; TEMP 36.6; O2SAT 100
== END 2025-07-03 14:54 | disposition home or self-care (01) ==
PROVIDERS: Emergency Provider Emergency Medicine; PCP Nurse Practitioner Family; Visit Provider Emergency Medicine
DX: R10.9 Unspecified abdominal pain (principal); F17.210 Nicotine dependence, cigarettes, uncomplicated; F12.90 Cannabis use, unspecified, uncomplicated; F32.A Depression, unspecified; F41.9 Anxiety disorder, unspecified
CPT/HCPCS: 74177; 80053; 81001; 83690; 84703; 85025; 96374; 96375; 96376; 99283; Q9967; A4216; J2405